=== PATIENT | female | born 1945 | race Caucasian/White ===

== ENCOUNTER 2018-11-23 01:26 | Outpatient (RCR) | payer MEDICARE, OTHER, SELFPAY ==
[2018-11-23] MEDS: Normal Saline Flush 10 ML SYR IVP (12:44)
[2018-11-23] MEDS: Heparin 500 UNITS/5 ML SYRINGE IV (12:45)
[2018-11-23 13:08] LABS: Abs Immature Grans 0.03 k/cumm (0.0-0.09); Absolute Basophil Count 0.08 k/cumm (0.0-0.2); Absolute Eosinophil Count 0.21 k/cumm (0.0-0.7); Absolute Lymphocyte Count 1.11 k/cumm (1.2-3.4); Absolute Monocyte Count 0.77 k/cumm (0.11-0.7); Basophils % 0.7; Eosinophils % 1.9; HCT 38.1 % (36.0-46.0); HGB 12.2 g/dL (12.0-15.5); Immature Grans % 0.3; Lymphocytes % 10.2; Mean Corpuscular Volume 90.7 fL (80-95); Mean Platelet Volume 9.5 fL (8.0-11.0); Monocytes % 7.1; Neutrophils % 79.8; Platelet Count 298 x1000/uL (130-400); RBC Distribution Width 13.7 % (11.7-14.6); White Blood Cell Count 10.85 k/cumm (4.4-10.8)
[2018-11-23 13:12] LABS: Absolute Neutrophil Count 8.66 k/cumm (1.2-6.7)
[2018-11-23 13:20] LABS: ALT 19 U/L (12-78); AST 14 U/L (15-37); Albumin 3.1 g/dL (3.4-5.0); Alkaline Phosphatase 84 U/L (46-116); Anion Gap 10.6 mmol/L (3-11); BUN 14 mg/dL (7-18); Bilirubin, Total 0.3 mg/dL (0.2-1.0); CO2 24.4 mmol/L (21.0-32.0); CREATININE 0.79 mg/dL (0.55-1.02); Calcium 8.5 mg/dL (8.5-10.1); Chloride 102 mmol/L (98-107); Glucose 154 mg/dL (70-100); Potassium 4.3 mmol/L (3.5-5.1); Sodium 137 mmol/L (136-145); Total Protein 7.3 g/dL (6.4-8.2)
== END 2018-11-26 23:59 | disposition home or self-care (01) ==
LOC: INF 01:26
PROVIDERS: PCP Student in an Organized Health Care Education/Training Program; Visit Provider Internal Medicine Hematology & Oncology
DX: C18.1 Malignant neoplasm of appendix (principal); Z45.2 Encounter for adjustment and management of vascular access device
CPT/HCPCS: 36591; 80053; 82378; 85025

== ENCOUNTER 2018-12-24 01:49 | Outpatient (RCR) | payer MEDICARE, OTHER, SELFPAY ==
[2018-12-03 12:45] LABS: Abs Immature Grans 0.03 k/cumm (0.0-0.09); Absolute Eosinophil Count 0.32 k/cumm (0.0-0.7); Absolute Lymphocyte Count 1.56 k/cumm (1.2-3.4); Absolute Monocyte Count 0.86 k/cumm (0.11-0.7); Absolute Neutrophil Count 8.37 k/cumm (1.2-6.7); Basophils % 0.4; Eosinophils % 2.9; HCT 39.4 % (36.0-46.0); HGB 12.5 g/dL (12.0-15.5); Immature Grans % 0.3; Lymphocytes % 13.9; Mean Corp. HGB Concentration 31.7 g/dL (32.0-36.0); Mean Corpuscular Hemoglobin 28.2 pg (27.0-33.0); Mean Corpuscular Volume 88.9 fL (80-95); Mean Platelet Volume 9.8 fL (8.0-11.0); Monocytes % 7.7; Neutrophils % 74.8; Platelet Count 334 x1000/uL (130-400); RBC 4.43 m/cumm (4.00-5.20); RBC Distribution Width 13.5 % (11.7-14.6); White Blood Cell Count 11.19 k/cumm (4.4-10.8)
[2018-12-03 12:49] LABS: Absolute Basophil Count 0.04 k/cumm (0.0-0.2)
[2018-12-03 13:00] LABS: ALT 23 U/L (12-78); AST 17 U/L (15-37); Albumin 3.4 g/dL (3.4-5.0); Alkaline Phosphatase 90 U/L (46-116); Anion Gap 8.7 mmol/L (3-11); BUN 12 mg/dL (7-18); Bilirubin, Total 0.2 mg/dL (0.2-1.0); CO2 25.3 mmol/L (21.0-32.0); CREATININE 0.74 mg/dL (0.55-1.02); Chloride 100 mmol/L (98-107); Glucose 91 mg/dL (70-100); Potassium 4.2 mmol/L (3.5-5.1); Sodium 134 mmol/L (136-145); Total Protein 7.7 g/dL (6.4-8.2)
[2018-12-06 09:51] LABS: CEA 3.5 ng/ml
[2018-12-10] MEDS: Normal Saline Flush 10 ML SYR IVP (09:13)
[2018-12-10 09:21] LABS: Abs Immature Grans 0.04 k/cumm (0.0-0.09); Absolute Basophil Count 0.06 k/cumm (0.0-0.2); Absolute Eosinophil Count 0.41 k/cumm (0.0-0.7); Absolute Lymphocyte Count 1.23 k/cumm (1.2-3.4); Basophils % 0.6; Eosinophils % 3.8; HCT 39.3 % (36.0-46.0); HGB 12.8 g/dL (12.0-15.5); Immature Grans % 0.4; Lymphocytes % 11.4; Mean Corp. HGB Concentration 32.6 g/dL (32.0-36.0); Mean Corpuscular Hemoglobin 28.7 pg (27.0-33.0); Mean Corpuscular Volume 88.1 fL (80-95); Mean Platelet Volume 9.3 fL (8.0-11.0); Monocytes % 6.5; Neutrophils % 77.3; Platelet Count 302 x1000/uL (130-400); RBC 4.46 m/cumm (4.00-5.20); RBC Distribution Width 13.3 % (11.7-14.6); White Blood Cell Count 10.82 k/cumm (4.4-10.8)
[2018-12-10 09:26] LABS: Absolute Neutrophil Count 8.36 k/cumm (1.2-6.7)
[2018-12-10 09:45] LABS: ALT 29 U/L (12-78); AST 19 U/L (15-37); Albumin 3.5 g/dL (3.4-5.0); Alkaline Phosphatase 86 U/L (46-116); Anion Gap 12.3 mmol/L (3-11); BUN 16 mg/dL (7-18); Bilirubin, Total 0.3 mg/dL (0.2-1.0); CO2 20.7 mmol/L (21.0-32.0); Calcium 8.8 mg/dL (8.5-10.1); Chloride 104 mmol/L (98-107); Glucose 103 mg/dL (70-100); Sodium 137 mmol/L (136-145); Total Protein 7.7 g/dL (6.4-8.2)
[2018-12-24] MEDS: Normal Saline Flush 10 ML SYR IVP (14:10)
[2018-12-24] MEDS: Heparin 500 UNITS/5 ML SYRINGE IV (14:10)
[2018-12-24 14:30] LABS: Abs Immature Grans 0.02 k/cumm (0.0-0.09); Absolute Basophil Count 0.05 k/cumm (0.0-0.2); Absolute Eosinophil Count 0.45 k/cumm (0.0-0.7); Absolute Lymphocyte Count 1.14 k/cumm (1.2-3.4); Absolute Neutrophil Count 7.34 k/cumm (1.2-6.7); Basophils % 0.5; Eosinophils % 4.6; HCT 36.1 % (36.0-46.0); HGB 12.2 g/dL (12.0-15.5); Immature Grans % 0.2; Lymphocytes % 11.8; Mean Corp. HGB Concentration 33.8 g/dL (32.0-36.0); Mean Platelet Volume 9.1 fL (8.0-11.0); Monocytes % 7.2; Neutrophils % 75.7; Platelet Count 255 x1000/uL (130-400); RBC Distribution Width 13.4 % (11.7-14.6)
[2018-12-24 14:44] LABS: ALT 23 U/L (12-78); AST 16 U/L (15-37); Albumin 3.2 g/dL (3.4-5.0); Alkaline Phosphatase 81 U/L (46-116); BUN 9 mg/dL (7-18); Bilirubin, Total 0.5 mg/dL (0.2-1.0); CREATININE 0.82 mg/dL (0.55-1.02); Calcium 7.9 mg/dL (8.5-10.1); Chloride 104 mmol/L (98-107); Glucose 104 mg/dL (70-100); Potassium 3.1 mmol/L (3.5-5.1); Sodium 140 mmol/L (136-145); Total Protein 7.1 g/dL (6.4-8.2)
[2018-12-27 09:10] LABS: CEA 12.6 ng/ml
== END 2018-12-26 23:59 | disposition home or self-care (01) ==
LOC: INF 01:49
PROVIDERS: PCP Student in an Organized Health Care Education/Training Program; Visit Provider Internal Medicine Hematology & Oncology
DX: C18.1 Malignant neoplasm of appendix (principal); Z45.2 Encounter for adjustment and management of vascular access device
CPT/HCPCS: 36591; 80053; 96523; 82378; 85025

== ENCOUNTER 2019-01-10 09:12 | Outpatient (REF) | payer MEDICARE, OTHER, SELFPAY ==
[2019-01-10 09:27] LABS: Abs Immature Grans 0.07 k/cumm (0.0-0.09); HCT 37.4 % (36.0-46.0); HGB 12.6 g/dL (12.0-15.5); Mean Corp. HGB Concentration 33.7 g/dL (32.0-36.0); Mean Corpuscular Hemoglobin 28.4 pg (27.0-33.0); Mean Corpuscular Volume 84.2 fL (80-95); Mean Platelet Volume 10.5 fL (8.0-11.0); Platelet Count 129 x1000/uL (130-400); RBC 4.44 m/cumm (4.00-5.20); RBC Distribution Width 15.2 % (11.7-14.6)
[2019-01-10 09:31] LABS: ALT 26 U/L (12-78); AST 20 U/L (15-37); Albumin 3.1 g/dL (3.4-5.0); Alkaline Phosphatase 82 U/L (46-116); Anion Gap 9.7 mmol/L (3-11); BUN 14 mg/dL (7-18); Bilirubin, Total 0.6 mg/dL (0.2-1.0); CO2 21.3 mmol/L (21.0-32.0); CREATININE 0.87 mg/dL (0.55-1.02); Calcium 8.5 mg/dL (8.5-10.1); Chloride 101 mmol/L (98-107); Glucose 153 mg/dL (70-100); Magnesium 1.7 mg/dL (1.8-2.4); Potassium 3.9 mmol/L (3.5-5.1); Sodium 132 mmol/L (136-145); Total Protein 7.3 g/dL (6.4-8.2)
[2019-01-10 09:56] LABS: Absolute Eosinophil Count 0.11 k/cumm (0.0-0.7); Absolute Lymphocyte Count 0.34 k/cumm (1.2-3.4); Absolute Monocyte Count 1.57 k/cumm (0.11-0.7); Absolute Neutrophil Count 9.18 k/cumm (1.2-6.7)
[2019-01-10 09:57] LABS: Diff Comment Manual Differential
[2019-01-10 09:58] LABS: RBC Morphology Normal
== END 2019-01-10 09:32 ==
LOC: LBN 09:12
PROVIDERS: PCP Student in an Organized Health Care Education/Training Program; Visit Provider Nurse Practitioner Adult Health
DX: C18.1 Malignant neoplasm of appendix (principal)
CPT/HCPCS: 80053; 83735; 85025

== ENCOUNTER 2019-01-21 02:24 | Outpatient (RCR) | payer MEDICARE, OTHER, SELFPAY ==
[2019-01-06] MEDS: Normal Saline Flush 10 ML SYR IVP (07:16)
[2019-01-06] MEDS: Heparin 500 UNITS/5 ML SYRINGE IV (07:17)
[2019-01-06 07:27] LABS: Abs Immature Grans 0.06 k/cumm (0.0-0.09); Absolute Basophil Count 0.08 k/cumm (0.0-0.2); Absolute Eosinophil Count 0.28 k/cumm (0.0-0.7); Absolute Lymphocyte Count 0.95 k/cumm (1.2-3.4); Absolute Neutrophil Count 5.53 k/cumm (1.2-6.7); Eosinophils % 3.5; HCT 40.2 % (36.0-46.0); HGB 13.1 g/dL (12.0-15.5); Immature Grans % 0.8; Lymphocytes % 11.9; Mean Corp. HGB Concentration 32.6 g/dL (32.0-36.0); Mean Corpuscular Hemoglobin 28.1 pg (27.0-33.0); Mean Corpuscular Volume 86.3 fL (80-95); Mean Platelet Volume 9.3 fL (8.0-11.0); Monocytes % 13.8; Platelet Count 281 x1000/uL (130-400); RBC 4.66 m/cumm (4.00-5.20); RBC Distribution Width 14.9 % (11.7-14.6)
[2019-01-06 07:57] LABS: ALT 32 U/L (12-78); AST 26 U/L (15-37); Albumin 3.3 g/dL (3.4-5.0); Alkaline Phosphatase 80 U/L (46-116); Anion Gap 12.6 mmol/L (3-11); BUN 15 mg/dL (7-18); Bilirubin, Total 0.5 mg/dL (0.2-1.0); CO2 19.4 mmol/L (21.0-32.0); CREATININE 0.87 mg/dL (0.55-1.02); Calcium 7.9 mg/dL (8.5-10.1); Chloride 104 mmol/L (98-107); Glucose 130 mg/dL (70-100); Potassium 4.1 mmol/L (3.5-5.1); Sodium 136 mmol/L (136-145); Total Protein 7.2 g/dL (6.4-8.2)
[2019-01-07 10:10] LABS: CEA 13.3 ng/ml
[2019-01-21] MEDS: Normal Saline Flush 10 ML SYR IVP (14:37)
[2019-01-21] MEDS: Heparin 500 UNITS/5 ML SYRINGE IV (14:38)
[2019-01-21 14:48] LABS: Abs Immature Grans 0.05 k/cumm (0.0-0.09); Absolute Eosinophil Count 0.23 k/cumm (0.0-0.7); Absolute Lymphocyte Count 2.68 k/cumm (1.2-3.4); Absolute Monocyte Count 1.11 k/cumm (0.11-0.7); Absolute Neutrophil Count 5.47 k/cumm (1.2-6.7); Basophils % 2.1; Eosinophils % 2.4; HGB 12.9 g/dL (12.0-15.5); Immature Grans % 0.5; Lymphocytes % 27.5; Mean Corp. HGB Concentration 33.1 g/dL (32.0-36.0); Mean Corpuscular Hemoglobin 28.1 pg (27.0-33.0); Mean Platelet Volume 9.4 fL (8.0-11.0); Monocytes % 11.4; Neutrophils % 56.1; Platelet Count 243 x1000/uL (130-400); RBC 4.59 m/cumm (4.00-5.20); RBC Distribution Width 14.9 % (11.7-14.6); White Blood Cell Count 9.74 k/cumm (4.4-10.8)
[2019-01-21 15:09] LABS: ALT 30 U/L (12-78); AST 19 U/L (15-37); Albumin 3.3 g/dL (3.4-5.0); Alkaline Phosphatase 82 U/L (46-116); Anion Gap 7.9 mmol/L (3-11); BUN 16 mg/dL (7-18); Bilirubin, Total 0.3 mg/dL (0.2-1.0); CO2 26.1 mmol/L (21.0-32.0); CREATININE 0.84 mg/dL (0.55-1.02); Calcium 8.4 mg/dL (8.5-10.1); Chloride 102 mmol/L (98-107); Glucose 105 mg/dL (70-100); Potassium 3.9 mmol/L (3.5-5.1); Sodium 136 mmol/L (136-145); Total Protein 7.4 g/dL (6.4-8.2)
[2019-01-24 11:22] LABS: CEA 5.3 ng/ml
== END 2019-01-26 23:59 | disposition home or self-care (01) ==
LOC: INF 02:24
PROVIDERS: PCP Student in an Organized Health Care Education/Training Program; Visit Provider Internal Medicine Hematology & Oncology
DX: C18.1 Malignant neoplasm of appendix (principal); Z45.2 Encounter for adjustment and management of vascular access device
CPT/HCPCS: 36591; 80053; 82378; 85025

== ENCOUNTER 2019-01-27 00:39 | Outpatient (CLI) | payer MEDICARE, OTHER, SELFPAY ==
[2019-01-27] MEDS: Breeza Beverage 473 ML BTL PO ×2 (08:59→09:00)
[2019-01-27] MEDS: Omnipaque 350 MG/ML 50 ML BTL PO (09:00)
--- NOTE | 2019-01-27 10:05 | DI.CT_ITS ---
SYMPTOMS/DIAGNOSIS: ADENOCARCINOMA APPENDIX, C18.1, ELEVATED TUMOR MARKERS CT OF THE CHEST, ABDOMEN AND PELVIS: The study was carried out according to the usual protocol with an intravenous administration of 100 cc's of Omnipaque 350. CHEST CT: There is evidence of COPD. When compared with a previous examination from 09/08/18 again noted is a 5 mm nodule in the superior segment of the left lower lobe. Again identified are opacities in the right lower lobe posteriorly. Also a pleural based focal area of nodularity in the superior segment of the right lower lobe has a maximal diameter of approximately 6 mm and is unchanged. Note is again made of very small pleural based opacities in both lungs. There is no evidence of a mass. There is no evidence of a pleural effusion. There is no evidence of hilar or mediastinal adenopathy. The heart is not enlarged. There is no pericardial effusion. There is no evidence of pulmonary embolic disease. There are mild atherosclerotic changes involving the aorta without evidence of an aneurysm. A Port-a-Cath is demonstrated with its tip ending in the distal portion of the superior vena cava at its junction with the right atrium. SUMMARY: No significant interval change when compared with the prior examination of 09/08/18. Note is again made of COPD and multiple bilateral areas of nodularity which are unchanged. There is no evidence of adenopathy. ABDOMEN AND PELVIC CT: The liver appears intact. The gallbladder is intact. There is no evidence of cholelithiasis or biliary dilatation. The pancreas is atrophic. The spleen and adrenals are unremarkable. The kidneys are intact. There is no evidence of hydronephrosis. No adrenal abnormality is seen. There is no evidence of lymphadenopathy. There is no evidence of bowel obstruction. The patient is status post right lower quadrant ileocolic anastomosis. There is nothing to suggest free air or fluid in the intraperitoneal space. The bladder appears intact. The reproductive organs as visualized are unremarkable. There is no evidence of an aortic aneurysm. The patient is apparently status post bilateral inguinal hernia repair. There are diffuse atherosclerotic changes involving the aorta without evidence of an aneurysm. Evaluation of the bony structures again reveals superior endplate compression fractures of T 12 and T 11 with no interval change. No localized areas of bony sclerosis, osteolysis or expansion are seen. Left to right common femoral bypass graft which appears patent. SUMMARY: No evidence of metastatic disease in the abdomen or pelvis.
[2019-01-27] MEDS: Omnipaque 350 MG/ML 100 ML BTL IJ (10:24)
== END 2019-01-27 00:59 ==
PROVIDERS: PCP Student in an Organized Health Care Education/Training Program; Visit Provider Internal Medicine Hematology & Oncology
DX: C18.1 Malignant neoplasm of appendix (principal); R97.8 Other abnormal tumor markers; J44.9 Chronic obstructive pulmonary disease, unspecified; R91.8 Other nonspecific abnormal finding of lung field; Z90.49 Acquired absence of other specified parts of digestive tract; Z95.828 Presence of other vascular implants and grafts
CPT/HCPCS: 74177; 96523; 71260; J3490; Q9967

== ENCOUNTER 2019-02-25 01:10 | Outpatient (RCR) | payer MEDICARE, OTHER, SELFPAY ==
[2019-01-27] MEDS: Heparin 500 UNITS/5 ML SYRINGE (10:15)
[2019-02-04] MEDS: Normal Saline Flush 10 ML SYR IVP (13:15)
[2019-02-04] MEDS: Heparin 500 UNITS/5 ML SYRINGE IV (13:15)
[2019-02-04 13:37] LABS: Abs Immature Grans 0.04 k/cumm (0.0-0.09); Absolute Basophil Count 0.05 k/cumm (0.0-0.2); Absolute Eosinophil Count 0.35 k/cumm (0.0-0.7); Absolute Lymphocyte Count 1.29 k/cumm (1.2-3.4); Absolute Monocyte Count 1.29 k/cumm (0.11-0.7); Basophils % 0.4; Eosinophils % 2.9; HCT 40.2 % (36.0-46.0); HGB 13.1 g/dL (12.0-15.5); Immature Grans % 0.3; Lymphocytes % 10.8; Mean Corp. HGB Concentration 32.6 g/dL (32.0-36.0); Mean Corpuscular Hemoglobin 27.3 pg (27.0-33.0); Mean Corpuscular Volume 83.8 fL (80-95); Mean Platelet Volume 10.2 fL (8.0-11.0); Monocytes % 10.8; Neutrophils % 74.8; Platelet Count 189 x1000/uL (130-400)
[2019-02-04 13:53] LABS: ALT 26 U/L (12-78); AST 18 U/L (15-37); Albumin 3.2 g/dL (3.4-5.0); Alkaline Phosphatase 84 U/L (46-116); Anion Gap 13.7 mmol/L (3-11); BUN 9 mg/dL (7-18); Bilirubin, Total 0.3 mg/dL (0.2-1.0); CO2 23.3 mmol/L (21.0-32.0); CREATININE 0.81 mg/dL (0.55-1.02); Chloride 98 mmol/L (98-107); Glucose 118 mg/dL (70-100); Potassium 4.1 mmol/L (3.5-5.1); Sodium 135 mmol/L (136-145); Total Protein 7.4 g/dL (6.4-8.2)
[2019-02-07 10:08] LABS: CEA 7.2 ng/ml
[2019-02-18] MEDS: Normal Saline Flush 10 ML SYR IVP (09:52)
[2019-02-18] MEDS: Heparin 500 UNITS/5 ML SYRINGE IV (09:53)
[2019-02-18 10:13] LABS: Abs Immature Grans 0.03 k/cumm (0.0-0.09); Absolute Basophil Count 0.05 k/cumm (0.0-0.2); Absolute Lymphocyte Count 1.14 k/cumm (1.2-3.4); Absolute Monocyte Count 1.34 k/cumm (0.11-0.7); Absolute Neutrophil Count 8.96 k/cumm (1.2-6.7); Basophils % 0.4; Eosinophils % 0.9; HCT 38.8 % (36.0-46.0); HGB 12.5 g/dL (12.0-15.5); Immature Grans % 0.3; Lymphocytes % 9.8; Mean Corp. HGB Concentration 32.2 g/dL (32.0-36.0); Mean Corpuscular Hemoglobin 26.7 pg (27.0-33.0); Mean Corpuscular Volume 82.9 fL (80-95); Mean Platelet Volume 9.8 fL (8.0-11.0); Monocytes % 11.5; Neutrophils % 77.1; Platelet Count 218 x1000/uL (130-400); RBC 4.68 m/cumm (4.00-5.20); RBC Distribution Width 15.6 % (11.7-14.6); White Blood Cell Count 11.62 k/cumm (4.4-10.8)
[2019-02-18 11:26] LABS: ALT 27 U/L (14-59); AST 23 U/L (15-37); Albumin 2.9 g/dL (3.4-5.0); Alkaline Phosphatase 91 U/L (46-116); BUN 10 mg/dL (7-18); Bilirubin, Total 0.4 mg/dL (0.2-1.0); CREATININE 0.91 mg/dL (0.55-1.02); Calcium 8.2 mg/dL (8.5-10.1); Chloride 100 mmol/L (98-107); Glucose 178 mg/dL (70-100); Potassium 3.7 mmol/L (3.5-5.1); Sodium 135 mmol/L (136-145); Total Protein 7.5 g/dL (6.4-8.2)
[2019-02-25] MEDS: Heparin 500 UNITS/5 ML SYRINGE IV (12:55)
[2019-02-25] MEDS: Normal Saline Flush 10 ML SYR IVP (12:55)
[2019-02-25 13:21] LABS: Abs Immature Grans 0.04 k/cumm (0.0-0.09); Absolute Basophil Count 0.05 k/cumm (0.0-0.2); Absolute Eosinophil Count 0.25 k/cumm (0.0-0.7); Absolute Lymphocyte Count 1.04 k/cumm (1.2-3.4); Absolute Monocyte Count 0.96 k/cumm (0.11-0.7); Absolute Neutrophil Count 5.44 k/cumm (1.2-6.7); Basophils % 0.6; Eosinophils % 3.2; HCT 39.1 % (36.0-46.0); HGB 12.5 g/dL (12.0-15.5); Immature Grans % 0.5; Lymphocytes % 13.4; Mean Corpuscular Hemoglobin 26.5 pg (27.0-33.0); Mean Corpuscular Volume 82.8 fL (80-95); Mean Platelet Volume 9.3 fL (8.0-11.0); Monocytes % 12.3; Platelet Count 327 x1000/uL (130-400); RBC 4.72 m/cumm (4.00-5.20); RBC Distribution Width 15.7 % (11.7-14.6); White Blood Cell Count 7.78 k/cumm (4.4-10.8)
[2019-02-25 13:38] LABS: ALT 33 U/L (14-59); AST 26 U/L (15-37); Albumin 2.9 g/dL (3.4-5.0); Alkaline Phosphatase 87 U/L (46-116); Anion Gap 10.4 mmol/L (3-11); BUN 10 mg/dL (7-18); Bilirubin, Total 0.2 mg/dL (0.2-1.0); CO2 24.6 mmol/L (21.0-32.0); CREATININE 0.85 mg/dL (0.55-1.02); Calcium 8.2 mg/dL (8.5-10.1); Chloride 104 mmol/L (98-107); Glucose 145 mg/dL (70-100); Sodium 139 mmol/L (136-145); Total Protein 7.6 g/dL (6.4-8.2)
== END 2019-02-26 23:59 | disposition home or self-care (01) ==
LOC: INF 01:10
PROVIDERS: PCP Student in an Organized Health Care Education/Training Program; Visit Provider Internal Medicine Hematology & Oncology
DX: C18.1 Malignant neoplasm of appendix (principal); Z45.2 Encounter for adjustment and management of vascular access device
CPT/HCPCS: 36591; 80053; 96523; 82378; 85025

== ENCOUNTER 2019-03-22 08:00 | Outpatient (RCR) | payer MEDICARE, OTHER, SELFPAY ==
[2019-03-11] MEDS: Heparin 500 UNITS/5 ML SYRINGE IV (08:15)
[2019-03-11] MEDS: Normal Saline Flush 10 ML SYR IVP (08:15)
[2019-03-11 08:46] LABS: Abs Immature Grans 0.03 k/cumm (0.0-0.09); Absolute Basophil Count 0.05 k/cumm (0.0-0.2); Absolute Eosinophil Count 0.21 k/cumm (0.0-0.7); Absolute Lymphocyte Count 1.33 k/cumm (1.2-3.4); Absolute Monocyte Count 1.09 k/cumm (0.11-0.7); Absolute Neutrophil Count 7.52 k/cumm (1.2-6.7); Basophils % 0.5; Eosinophils % 2.1; HCT 41.8 % (36.0-46.0); HGB 13.2 g/dL (12.0-15.5); Immature Grans % 0.3; Mean Corp. HGB Concentration 31.6 g/dL (32.0-36.0); Mean Corpuscular Hemoglobin 26.3 pg (27.0-33.0); Mean Corpuscular Volume 83.3 fL (80-95); Mean Platelet Volume 10.4 fL (8.0-11.0); Monocytes % 10.7; Neutrophils % 73.4; Platelet Count 206 x1000/uL (130-400); RBC 5.02 m/cumm (4.00-5.20); RBC Distribution Width 17.1 % (11.7-14.6); White Blood Cell Count 10.23 k/cumm (4.4-10.8)
[2019-03-11 09:04] LABS: Hemoglobin A1C 7.2 % (4.5-6.2)
[2019-03-11 09:21] LABS: ALT 28 U/L (14-59); AST 31 U/L (15-37); Albumin 3.3 g/dL (3.4-5.0); Alkaline Phosphatase 90 U/L (46-116); Anion Gap 11.4 mmol/L (3-11); BUN 5 mg/dL (7-18); Bilirubin, Total 0.4 mg/dL (0.2-1.0); CO2 22.6 mmol/L (21.0-32.0); CREATININE 0.82 mg/dL (0.55-1.02); Calcium 8.4 mg/dL (8.5-10.1); Chloride 107 mmol/L (98-107); Glucose 121 mg/dL (70-100); Potassium 4.3 mmol/L (3.5-5.1); Sodium 141 mmol/L (136-145); Total Protein 7.5 g/dL (6.4-8.2)
[2019-03-22 08:35] LABS: Absolute Basophil Count 0.09 k/cumm (0.0-0.2); Absolute Eosinophil Count 0.25 k/cumm (0.0-0.7); Absolute Lymphocyte Count 1.22 k/cumm (1.2-3.4); Absolute Monocyte Count 0.73 k/cumm (0.11-0.7); Absolute Neutrophil Count 5.34 k/cumm (1.2-6.7); Basophils % 1.2; Eosinophils % 3.2; HCT 38.6 % (36.0-46.0); HGB 12.1 g/dL (12.0-15.5); Immature Grans % 1.3; Lymphocytes % 15.8; Mean Corp. HGB Concentration 31.3 g/dL (32.0-36.0); Mean Corpuscular Hemoglobin 26.3 pg (27.0-33.0); Mean Corpuscular Volume 83.9 fL (80-95); Mean Platelet Volume 9.6 fL (8.0-11.0); Monocytes % 9.4; Neutrophils % 69.1; Platelet Count 307 x1000/uL (130-400); RBC Distribution Width 16.9 % (11.7-14.6); White Blood Cell Count 7.73 k/cumm (4.4-10.8)
[2019-03-22] MEDS: Normal Saline Flush 10 ML SYR IVP (08:38)
[2019-03-22 08:47] LABS: ALT 18 U/L (14-59); AST 21 U/L (15-37); Albumin 2.1 g/dL (3.4-5.0); Alkaline Phosphatase 84 U/L (46-116); Anion Gap 9.9 mmol/L (3-11); BUN 6 mg/dL (7-18); Bilirubin, Total 0.2 mg/dL (0.2-1.0); CO2 23.1 mmol/L (21.0-32.0); CREATININE 0.91 mg/dL (0.55-1.02); Chloride 102 mmol/L (98-107); Glucose 197 mg/dL (70-100); Potassium 4.3 mmol/L (3.5-5.1); Sodium 135 mmol/L (136-145); Total Protein 7.4 g/dL (6.4-8.2)
[2019-03-23 11:16] LABS: CEA 5.1 ng/ml
== END 2019-03-28 23:59 | disposition home or self-care (01) ==
LOC: INF 08:00
PROVIDERS: PCP Student in an Organized Health Care Education/Training Program; Visit Provider Internal Medicine Hematology & Oncology
DX: C18.1 Malignant neoplasm of appendix (principal); Z45.2 Encounter for adjustment and management of vascular access device
CPT/HCPCS: 36591; 80053; 82378; 83036; 85025

== ENCOUNTER 2019-04-15 02:34 | Outpatient (RCR) | payer MEDICARE, OTHER, SELFPAY ==
[2019-04-01] MEDS: Normal Saline Flush 10 ML SYR IVP (08:00)
[2019-04-01] MEDS: Heparin 500 UNITS/5 ML SYRINGE IV (08:00)
[2019-04-01 08:14] LABS: Abs Immature Grans 0.06 k/cumm (0.0-0.09); Absolute Basophil Count 0.05 k/cumm (0.0-0.2); Absolute Eosinophil Count 0.18 k/cumm (0.0-0.7); Absolute Lymphocyte Count 1.18 k/cumm (1.2-3.4); Absolute Monocyte Count 1.34 k/cumm (0.11-0.7); Basophils % 0.5; Eosinophils % 1.7; HCT 38.9 % (36.0-46.0); HGB 12.2 g/dL (12.0-15.5); Immature Grans % 0.6; Lymphocytes % 11.1; Mean Corp. HGB Concentration 31.4 g/dL (32.0-36.0); Mean Corpuscular Hemoglobin 26.3 pg (27.0-33.0); Mean Corpuscular Volume 83.8 fL (80-95); Mean Platelet Volume 9.6 fL (8.0-11.0); Monocytes % 12.6; Neutrophils % 73.5; Platelet Count 296 x1000/uL (130-400); RBC 4.64 m/cumm (4.00-5.20); RBC Distribution Width 17.7 % (11.7-14.6); White Blood Cell Count 10.61 k/cumm (4.4-10.8)
[2019-04-01 08:35] LABS: ALT 22 U/L (14-59); AST 28 U/L (15-37); Albumin 3.1 g/dL (3.4-5.0); Alkaline Phosphatase 93 U/L (46-116); Anion Gap 13.4 mmol/L (3-11); BUN 11 mg/dL (7-18); Bilirubin, Total 0.4 mg/dL (0.2-1.0); CO2 21.6 mmol/L (21.0-32.0); CREATININE 0.88 mg/dL (0.55-1.02); Calcium 8.6 mg/dL (8.5-10.1); Chloride 100 mmol/L (98-107); Glucose 147 mg/dL (70-100); Potassium 4.3 mmol/L (3.5-5.1); Sodium 135 mmol/L (136-145); Total Protein 7.8 g/dL (6.4-8.2)
[2019-04-04 08:41] LABS: CEA 10.3 ng/ml
[2019-04-15] MEDS: Normal Saline Flush 10 ML SYR IVP (10:22)
[2019-04-15] MEDS: Heparin 500 UNITS/5 ML SYRINGE IV (10:22)
[2019-04-15 10:33] LABS: Abs Immature Grans 0.04 k/cumm (0.0-0.09); Absolute Basophil Count 0.07 k/cumm (0.0-0.2); Absolute Eosinophil Count 0.11 k/cumm (0.0-0.7); Absolute Lymphocyte Count 1.23 k/cumm (1.2-3.4); Absolute Monocyte Count 0.91 k/cumm (0.11-0.7); Absolute Neutrophil Count 6.52 k/cumm (1.2-6.7); Basophils % 0.8; Eosinophils % 1.2; HCT 39.9 % (36.0-46.0); HGB 12.7 g/dL (12.0-15.5); Immature Grans % 0.5; Lymphocytes % 13.9; Mean Corp. HGB Concentration 31.8 g/dL (32.0-36.0); Mean Corpuscular Hemoglobin 26.7 pg (27.0-33.0); Mean Platelet Volume 9.8 fL (8.0-11.0); Monocytes % 10.2; Neutrophils % 73.4; Platelet Count 178 x1000/uL (130-400); RBC 4.75 m/cumm (4.00-5.20); RBC Distribution Width 18.6 % (11.7-14.6); White Blood Cell Count 8.88 k/cumm (4.4-10.8)
[2019-04-15 10:39] LABS: ALT 27 U/L (14-59); AST 31 U/L (15-37); Albumin 3.1 g/dL (3.4-5.0); Alkaline Phosphatase 94 U/L (46-116); Anion Gap 12.5 mmol/L (3-11); BUN 14 mg/dL (7-18); Bilirubin, Total 0.3 mg/dL (0.2-1.0); CO2 22.5 mmol/L (21.0-32.0); Calcium 8.2 mg/dL (8.5-10.1); Chloride 102 mmol/L (98-107); Glucose 249 mg/dL (70-100); Potassium 3.9 mmol/L (3.5-5.1); Sodium 137 mmol/L (136-145); Total Protein 7.5 g/dL (6.4-8.2)
[2019-04-18 10:53] LABS: CEA 12.6 ng/ml
== END 2019-04-28 23:59 | disposition home or self-care (01) ==
LOC: INF 02:34
PROVIDERS: PCP Student in an Organized Health Care Education/Training Program; Visit Provider Internal Medicine Hematology & Oncology
DX: C18.1 Malignant neoplasm of appendix (principal); Z45.2 Encounter for adjustment and management of vascular access device
CPT/HCPCS: 36591; 80053; 82378; 85025

== ENCOUNTER 2020-05-21 18:28 | Outpatient (REF) | payer MEDICARE, OTHER, SELFPAY | END 2020-05-21 18:48 | LOC: LBN 18:28 | PROVIDERS: PCP Student in an Organized Health Care Education/Training Program; Visit Provider Family Medicine | DX: N39.0 Urinary tract infection, site not specified (principal) | CPT/HCPCS: 87086 ==

== ENCOUNTER 2021-03-22 19:51 | Outpatient (REF) | payer MEDICARE, OTHER, SELFPAY ==
[2021-03-22 17:34] LABS: ALT 37 U/L (14-59); AST 22 U/L (15-37); Albumin 3.5 g/dL (3.4-5.0); Alkaline Phosphatase 72 U/L (46-116); Bilirubin, Direct 0.1 mg/dL (0.0-0.2); Bilirubin, Total 0.4 mg/dL (0.2-1.0); Total Protein 6.7 g/dL (6.4-8.2)
== END 2021-03-22 19:52 | disposition home or self-care (01) ==
LOC: LBN 19:51
PROVIDERS: PCP Student in an Organized Health Care Education/Training Program; Visit Provider Student in an Organized Health Care Education/Training Program
DX: J44.9 Chronic obstructive pulmonary disease, unspecified (principal)
CPT/HCPCS: 80076

== ENCOUNTER 2021-04-25 13:25 | Outpatient (REF) | payer MEDICARE, OTHER, SELFPAY | END 2021-04-25 13:26 | disposition home or self-care (01) | LOC: LBN 13:25 | PROVIDERS: PCP Student in an Organized Health Care Education/Training Program; Visit Provider Student in an Organized Health Care Education/Training Program | DX: R31.9 Hematuria, unspecified (principal); R41.0 Disorientation, unspecified | CPT/HCPCS: 87086 ==

== ENCOUNTER 2021-05-02 01:58 | Outpatient (CLI) | payer MEDICARE, OTHER, SELFPAY ==
--- NOTE | 2021-05-02 06:45 | DI.RAD_ITS ---
Exam(s) XR CHEST 2V PA LATERAL EXAM: XR CHEST 2V PA LATERAL CLINICAL HISTORY: evaluate for pneumonia,H/O PNEUMONIA,H/O FLUID OVERLOAD,COPD,J44.9,Z86.39. TECHNIQUE: 2D digital imaging was performed. COMPARISON: CT CT ANGIO CHEST from 08/18/[address] ANGIO CHEST from 08/18/2020 FINDINGS: Distal tip of the right sided Port-A-Cath is at the SVC RA junction Heart size is normal. The mediastinum is not widened. Lung aguilar reveal COPD findings and some interstitial disease. No pleural effusions. However, ther e appears to be a 1.2 x 1.2 cm nodule in the mid lateral left lung field, possibly in the superior se gment of the left lower lobe or in the left upper lobe.. IMPRESSION: COPD. No confluent infiltrates but there is a nodular infiltrate in the lateral left lung measuring 12 x 12 millimeters. DATA REPOSITORY: RADIATION DOSE DELIVERED:
== END 2021-05-02 02:18 ==
PROVIDERS: PCP Student in an Organized Health Care Education/Training Program; Visit Provider Student in an Organized Health Care Education/Training Program
DX: R53.83 Other fatigue (principal); J44.9 Chronic obstructive pulmonary disease, unspecified; J96.11 Chronic respiratory failure with hypoxia; Z86.39 Personal history of other endocrine, nutritional and metabolic disease; R91.8 Other nonspecific abnormal finding of lung field
CPT/HCPCS: 71046

== ENCOUNTER 2021-05-03 03:19 | Outpatient (CLI) | payer MEDICARE, OTHER, SELFPAY ==
[2021-05-03 10:55] LABS: Source Nasal/Nares
[2021-05-03 17:09] LABS: COVID-19 PCR Negative (Negative)
== END 2021-05-03 03:20 | disposition home or self-care (01) ==
LOC: LBO 03:19
PROVIDERS: PCP Student in an Organized Health Care Education/Training Program; Visit Provider Internal Medicine
DX: Z20.822 Contact with and (suspected) exposure to COVID-19 (principal); Z01.818 Encounter for other preprocedural examination
CPT/HCPCS: 87635

== ENCOUNTER 2021-05-31 00:35 | Outpatient (CLI) | payer MEDICARE, OTHER, SELFPAY ==
--- NOTE | 2021-05-31 07:45 | DI.CT_ITS ---
Exam(s) CT CHEST WO EXAM: CT CHEST WO CLINICAL HISTORY: left nodule seen on previous CXR, R91.1. TECHNIQUE: Imaging protocol: Axial computed tomography images were obtained and coronal and sagittal reformatted images were created and reviewed. COMPARISON: CT CT CHEST W CONTRAST from 09/08/[address] CHEST ABDOMEN PELVIS W CONTRAST (GENERIC) from 10/12/[address] ANGIO CHEST from 08/18/2020 CR XR CHEST 2V PA LATERAL from 05/02/2021 FINDINGS: Tracheobronchial tree: Patent where visualized. Pulmonary parenchyma: There has been continued improvement in the infiltrate in the posterior aspect of the right lower lobe compared to the prior examination. There is a stable pleural based nodule in the lateral aspect of the right lower lobe. (Series 4, image 431). There is now a 2nd pleural based n odule posteriorly in the right lower lobe measuring 7 mm. (Series 4, image 432). There is a stable pl eural based nodule in the left lower lobe. (Series 4, image 274). There has been marked improvement i n the infiltrates seen in the lower lobes compared to 08/18/2020. Minimal persistent interstitial dise ase is seen in the lower lobes. No new focal consolidating infiltrates are seen. Marked centrilobular emphysematous changes are present. Mediastinum and Radha: Stable mildly enlarged lymph nodes are seen in the mediastinum. There is a smal l hiatal hernia. The esophagus is otherwise unremarkable. Thyroid gland: Unremarkable. Pleura: No effusion or pneumothorax. Heart: Mildly enlarged heart. Coronary artery calcifications are present. Calcification of the mitral valve is noted. No pericardial effusion. Aorta: Thoracic aorta non-dilated. Atherosclerosis. Upper abdomen: Unremarkable. Lymph nodes: Please see above. Tubes, Catheters, and Lines: There is a central venous catheter in place. The tip is in good position at the cavoatrial junction. Soft tissues: Unremarkable. Bones:There has been progression of the compression of the inferior endplate of T10. The compression fracture deformities of T12, L1 and L2 are unchanged. IMPRESSION: 1. Improved infiltrates in the lower lobes since 08/18/2020. 2. New pleural based 7 mm nodule in the right lower lobe. Otherwise stable pulmonary nodules. 3. Centrilobular pulmonary emphysema. 4. Stable mediastinal lymph nodes. 5. Slight progression in the compression of the inferior endplate of T10. RADIATION DOSE DELIVERED: 349.13mGy.cm Total DLP 349.13mGy.cm Total DLP DATA REPOSITORY: All CT scans at this facility are submitted to the National Radiology Data Registry (NRDR) Dose Index Registry (DIR) with the [employer] ([employer]). RADIATION OPTIMIZATION: All CT scans at this facility use at least one of these dose optimization te chniques: automated exposure control; mA and/or kV adjustment per patient size (includes targeted exa ms where dose is matched to clinical indication); or iterative reconstruction.
== END 2021-05-31 00:55 ==
PROVIDERS: PCP Student in an Organized Health Care Education/Training Program; Visit Provider Student in an Organized Health Care Education/Training Program
DX: R91.1 Solitary pulmonary nodule (principal)
CPT/HCPCS: 71250

== ENCOUNTER → 2021-07-10 08:44 | Outpatient (BNVA) | payer MEDICARE, OTHER, SELFPAY | PROVIDERS: PCP Student in an Organized Health Care Education/Training Program; Referring Provider Student in an Organized Health Care Education/Training Program; Visit Provider Nurse Practitioner Adult Health | DX: R41.3 Other amnesia (principal); J44.9 Chronic obstructive pulmonary disease, unspecified; E11.9 Type 2 diabetes mellitus without complications; Z99.81 Dependence on supplemental oxygen | CPT/HCPCS: 99204 ==

== ENCOUNTER 2021-07-17 01:48 | Outpatient (RCR) | payer MEDICARE, OTHER, SELFPAY ==
[2021-07-17] MEDS: Normal Saline Flush 10 ML SYR IVP (10:01)
[2021-07-17] MEDS: Heparin 500 UNITS/5 ML SYRINGE IV (10:01)
[2021-07-17 10:13] LABS: CREATININE 1.2 mg/dL (0.55-1.02); Estimated GFR 43.68 (mL/min/1.73m2); Vitamin B12 468 pg/mL (193-986)
== END 2021-07-29 23:59 | disposition home or self-care (01) ==
LOC: INF 01:48
PROVIDERS: PCP Student in an Organized Health Care Education/Training Program; Visit Provider Nurse Practitioner Adult Health
DX: R41.3 Other amnesia (principal); N14.1 Nephropathy induced by other drugs, medicaments and biological substances; T50.8X5A Adverse effect of diagnostic agents, initial encounter; Z45.2 Encounter for adjustment and management of vascular access device
CPT/HCPCS: 36591; 82565; 82607

== ENCOUNTER → 2021-07-24 07:18 | Outpatient (BNVA) | payer MEDICARE, OTHER, SELFPAY | PROVIDERS: PCP Student in an Organized Health Care Education/Training Program; Referring Provider Student in an Organized Health Care Education/Training Program; Visit Provider Nurse Practitioner Adult Health | DX: G31.84 Mild cognitive impairment of uncertain or unknown etiology (principal); J44.9 Chronic obstructive pulmonary disease, unspecified | CPT/HCPCS: 99213; 99443 ==

== ENCOUNTER 2021-08-15 15:23 | Inpatient (IN) | payer MEDICARE, OTHER, SELFPAY ==
[2021-08-15] VITALS (88 sets, daily range): BP systolic 75–134; BP diastolic 41–86; PULSE 81–211; RESP 13–36; TEMP 36.3–36.5; O2SAT 79–99
--- NOTE | 2021-08-15 15:15 | RT.EKG_ITS ---
APPROVED REPORT Exam: Resting ECG Reason for Exam: sob Patient Location: E HR:132 bpm ECG Measurements Heart Rate 132 AXIS NE 135 P 93 QRSd 95 QRS 137 QT 316 T -20 QTc 468 Conclusion Sinus tachycardia. Left atrial enlargement. Low voltage, precordial leads. Right ventricular hypertrophy. Abnormal T, anterior leads.
--- NOTE | 2021-08-15 15:56 | ED.GENADUL_ITS ---
Discharge Plan Disposition Patient Disposition: [facility] INPATIENT Condition: Serious Discharge Details Clinical Impression: Acute respiratory distress, DKA (diabetic ketoacidosis), Elevated troponin Primary Care Provider: Trang Blanton ED Provider: Carter Lee Home Meds and New Rx's Prescriptions: No Action acetaminophen 325 mg tablet 650 mg PO BID PRN0RF melatonin 5 mg tablet 10 mg PO HS 0RF levalbuterol tartrate [Xopenex HFA] 45 mcg/actuation HFA aerosol inhaler 2 inh inhalation Q6H Qty: 15 8RF (DME) Wheelchair light-weight, if possible See Rx Instructions .Route .MEDSUPPLY Qty: 1 0RF Rx Instructions: As directed lorazepam 0.5 mg tablet 0.5 mg PO ONCE PRN (Reason: anxiety) Qty: 2 0RF Rx Instructions: Take [address] scan. May repeat right before scan if needed. (DME) Oxygen Tank See Rx Instructions .ROUTE .MEDSUPPLY Qty: 1 0RF Rx Instructions: Portable oxygen concentrator to administer 2ML flow (Dx J44.1, R09.02, Z99.81) cholecalciferol (vitamin D3) 125 mcg (5,000 unit) tablet 125 mcg PO DAILY 0RF metformin 500 mg tablet 500 mg PO BID Qty: 180 3RF levothyroxine 100 mcg tablet 100 mcg PO DAILY Qty: 90 3RF potassium chloride 20 mEq tablet extended release 20 meq PO DAILY Qty: 90 3RF furosemide 20 mg tablet 20 mg PO DAILY Qty: 30 0RF Rx Instructions: Trial for fluid overload, re-check BMP ~ Apr 2021 (DME) pen needle, diabetic [BD Ultra-Fine Mini Pen Needle] 31 gauge x 3/16 needle See Rx Instructions .ROUTE .MEDSUPPLY Qty: 100 3RF Rx Instructions: for Qam Lantus injection morphine 10 mg/5 mL solution 2 mg PO Q4H MDD 10mg PRN (Reason: dyspnea) Qty: 100 0RF Rx Instructions: Trial for air hunger .. slow titration prn. prednisone 20 mg tablet 20 mg PO DAILY Qty: 30 1RF Rx Instructions: for taper after [facility] ED 40mg Rx prednisone 10 mg tablet 10 mg PO DAILY Qty: 30 1RF Rx Instructions: For continued taper Basaglar KwikPen U-100 Insulin 100 unit/mL (3 mL) insulin pen 24 unit subcut DAILY 0RF Rx Instructions: INCREASE daily insulin by 1unit each morning until fasting blood sugar consistently 100 to 150mg/dl, or you reach a maximum dose of 25units. If fasting blood sugar consistently LESS THAN 100mg/dl DECREASE dose by 1 unit each day until back in target. loperamide-simethicone 2-125 mg tablet 1 tab PO Q3H PRN0RF (DME) Oxygen Titration Qty: 1 0RF Rx Instructions: Titrate to maintain oxygen > 88% metoprolol succinate 25 mg tablet extended release 24 hr 25 mg PO DAILY 0RF nitroglycerin [Nitrostat] 0.4 mg tablet, sublingual 0.4 mg sublingual Q5M PRN0RF Rx Instructions: do not exceed 3 doses per episode Eliquis 2.5 mg tablet 2.5 mg PO BID Qty: 180 3RF Rx Instructions: [place] [facility] [place] [place] lancets [Accu-Chek Softclix Lancets] [facility] See Rx Instructions .ROUTE .MEDSUPPLY Qty: 100 3RF Rx Instructions: As directed, for QD blood sugar monitoring to achieve A1C under 8% (DME) lancing device with lancets [Accu-Chek Soft Dev Lancets] Kit See Rx Instructions .ROUTE .MEDSUPPLY Qty: 1 0RF Rx Instructions: As directed, for QD BS monitoring to achieve A1C under 8% (DME) blood-glucose meter Kit See Rx Instructions .ROUTE .MEDSUPPLY Qty: 1 0RF Rx Instructions: Dispense One Touch Ultra to check BS daily for DM11 E11.9 to keep A1c at or below 8 Pt not insulin dependent (DME) blood sugar diagnostic Strip See Rx Instructions .ROUTE .MEDSUPPLY Qty: 100 3RF Rx Instructions: Dispense one touch strips to check BS daily; DM 11, E11.9 to keep a1c at or under 8. Not insulin dependent Stiolto Respimat 2.5-2.5 mcg/actuation mist 2 puff inhalation DAILY Qty: 4 8RF ipratropium-albuterol 0.5 mg-3 mg(2.5 mg base)/3 mL solution for nebulization 3 ml inhalation .COMPLEX Qty: 540 12RF Hold Instructions: Patient Refused Rx Instructions: 3 mL inhalation-TAKE TWICE DAILY AND Q 4H PRN Dx J44.9 amlodipine 2.5 mg tablet See Rx Instructions .ROUTE .COMPLEX Qty: 90 3RF Dose Instruction: TAKE ONE TABLET BY MOUTH ONCE DAILY Rx Instructions: TAKE ONE TABLET BY MOUTH ONCE DAILY Jardiance 10 mg tablet See Rx Instructions .ROUTE .COMPLEX Qty: 90 1RF Dose Instruction: TAKE ONE TABLET BY MOUTH ONCE DAILY Rx Instructions: TAKE ONE TABLET BY MOUTH ONCE DAILY Medical Decision Making <SANA Sherwood - Last Filed: 08/15/21 19:46> 76-year-old female with a complicated past medical history presents to the ER in respiratory distress. I evaluated her immediately in room 2, respiratory was called to initiate BiPAP. Patient presented with tachycardia, hypotension, tachypnea, O2 sat of 83 on 3 L nasal cannula. Will immediately obtain cardiac work-up and if laboratory values allow obtain CTA of the chest for further evaluation. Given the history of CHF and fluid overload, I am hesitant to aggressively treat with fluid as I do not know if she has an acute CHF or pulmonary edema. Will provide 125 Solu-Medrol Patient placed on BiPAP, 10-10, 30%, O2 sats were 95%. Subsequently she was transferred to 10, 40% in order to sustain an appropriate O2 sats. She did Very Well to the BiPAP, Heart Rate Now 100, Respirations 20, O2 Sat 98% and Her Blood Pressure Is 104/66. Laboratory values reveal a white blood cell count of 18.63, difficult to say whether this is steroid-induced for an infectious process. D-dimer 826. ABG was ordered but respiratory unable to pain, this was changed to a DVT. Lactate of 9.9 sodium 130 potassium 5.7 anion gap 16 5 glucose 550, creatinine 1.7 for GFR of 29.22 calcium 8.4, troponin 75. Denies any chest pain, likely demand related. BNP at 13,037. Procalcitonin of 0.3 Urinalysis pending Laboratory values are concerning for DKA. At this time will initiat insulin drip and provide 1 L IV fluids. CTA reveals moderate right pleural effusion and severe emphysema but negative for PE or infiltrate. No clear infectious process, has not initiated antibiotic therapy. Glucose down to 303 Case discussed with our hospitalist team, Dr. Ramesh, who is agreeable to admission to the ICU. He will write admission orders. Medical Records Medical records reviewed: Yes I reviewed the patient's medical records. Imaging Data Radiologic Study: Attestation: I personally reviewed and interpreted this imaging study as follows: Imaging: CT Scan Radiologist's impression: PROCEDURE INFORMATION: Exam: CTA Chest With Contrast Exam date and time: 08/15/2021 4:46 PM Age: 76 years old Clinical indication: Other: SOB, hypoxic TECHNIQUE: Imaging protocol: Computed tomographic angiography of the chest with contrast. 3D rendering (Not supervised by radiologist): MIP and/or 3D reconstructed images were created by the technologist. Contrast material: OMNIPAQUE 350; Contrast volume: 60 ml; Contrast route: INTRAVENOUS (IV); COMPARISON: CT ANGIO CHEST 08/18/2020 6:52 PM FINDINGS: Pulmonary arteries: Normal. No pulmonary emboli. Aorta: Unremarkable. No aortic aneurysm. No aortic dissection. Other arteries: Moderate arteriosclerotic calcifications. Bilateral renal artery stenosis questioned. Stenosis noted in the superior mesenteric artery. Lungs: Severe emphysema. Mild areas of scar tissue or atelectasis suspected in the lung bases, similar to previous. Pleural spaces: Moderate right pleural effusion. No pneumothorax. Heart: Unremarkable. No cardiomegaly. No pericardial effusion. Lymph nodes: Unremarkable. No enlarged lymph nodes. Bones/joints: Extensive costochondral calcifications noted. Compression fractures at T12, L1, and L2 are similar to previous. Multilevel degenerative changes noted. Soft tissues: Unremarkable. Other findings: Exam limited by motion artifact. SANDRA GILES Preliminary Radiology Report INSURANCE ACTUARY (QA) DISCREPANCY? If there is a discrepancy between the preliminary and final interpretation, please notify ad via [email or web address]. If you do not have access to our QA portal, call our QA team at [phone] CONFIDENTIALITY STATEMENT This report is intended only for the use of the referring physician, and only in accordance with law, If you received this in error, call [phone] Page 2 of 2 IMPRESSION: 1. Negative for pulmonary embolism. 2. Moderate right pleural effusion. 3. Severe emphysema. Lab Data Lab results reviewed: Yes I reviewed the patient's lab results. Labs: 08/15/21 17:00 Blood Blood Culture - Pending 08/15/21 17:00 Blood Blood Culture - Pending Laboratory Tests Range/Units 08/15/21 08/15/21 08/15/21 15:50 15:50 15:50 WBC (4.4-10.8) 10^3/uL RBC (3.93-5.22) 10^6/uL Hgb (11.2-15.7) g/dL Hct (36.0-46.0) % MCV (80-95) fL MCH (27.0-33.0) pg MCHC (32.0-36.0) % RDW (11.7-14.6) % Plt Count (130-400) 10^3/uL MPV (8.0-11.0) fL Immature Gran % Neutrophils % Lymphocytes % Monocytes % Eosinophils % Basophils % Nucleated RBC % % Absolute Neutrophils (1.2-6.7) 10^3/uL Absolute Lymphocytes (1.2-3.4) 10^3/uL Absolute Monocytes (0.1-0.8) 10^3/uL Absolute Eosinophils (0.0-0.7) 10^3/uL Absolute Basophils (0.0-0.2) 10^3/uL RBC Morphology Polychromasia Hypochromasia Poikilocytosis Anisocytosis Microcytosis PT (9.3-11.0) sec 11.0 INR (0.9-1.1) 1.1 APTT (21.0-27.5) sec 23.0 D-Dimer (<500) ng/mlFEU 826 H VBG Lactate (0.6-1.4) mmol/L Sodium (136-145) mmol/L 132 L Potassium (3.5-5.1) mmol/L 5.7 H Chloride (98-107) mmol/L 99 Carbon Dioxide (21.0-32.0) mmol/L 16.5 L Anion Gap (3-11) mmol/L 16.5 H BUN (7-18) mg/dL 29 H Creatinine (0.55-1.02) mg/dL 1.7 H Estimated GFR/1.73 m2 (mL/min/1.73m2) 29.22 Glucose (74-106) mg/dL 550 H* Calcium (8.5-10.1) mg/dL 8.4 L Magnesium (1.8-2.4) mg/dL 2.1 Total Bilirubin (0.2-1.0) mg/dL 0.4 AST (15-37) U/L 36 ALT (14-59) U/L 85 H Alkaline Phosphatase (46-116) U/L 62 Troponin I (<or=60) ng/L 56 NT-Pro-B Natriuret Pep (<300) pg/mL 49812 H Total Protein (6.4-8.2) g/dL 6.8 Albumin (3.4-5.0) g/dL 3.3 L Procalcitonin ng/mL COVID-19 Source SARS-CoV-2 (PCR) (Negative) Influenza Type A (PCR) (Negative) Influenza Type B (PCR) (Negative) RSV (PCR) (Negative) Range/Units 08/15/21 08/15/21 08/15/21 15:50 15:50 16:00 WBC (4.4-10.8) 10^3/uL 18.63 H RBC (3.93-5.22) 10^6/uL 5.32 H Hgb (11.2-15.7) g/dL 11.6 Hct (36.0-46.0) % 42.2 MCV (80-95) fL 79.3 L MCH (27.0-33.0) pg 21.8 L MCHC (32.0-36.0) % 27.5 L RDW (11.7-14.6) % 18.3 H Plt Count (130-400) 10^3/uL 434 H MPV (8.0-11.0) fL 10.6 Immature Gran % 1.1 Neutrophils % 93.4 Lymphocytes % 3.2 Monocytes % 2.1 Eosinophils % 0.0 Basophils % 0.2 Nucleated RBC % % 0 Absolute Neutrophils (1.2-6.7) 10^3/uL 17.40 H Absolute Lymphocytes (1.2-3.4) 10^3/uL 0.60 L Absolute Monocytes (0.1-0.8) 10^3/uL 0.39 Absolute Eosinophils (0.0-0.7) 10^3/uL 0.00 Absolute Basophils (0.0-0.2) 10^3/uL 0.04 RBC Morphology See Below Polychromasia Present Hypochromasia 1+ Poikilocytosis 1+ Anisocytosis 1+ Microcytosis 1+ PT (9.3-11.0) sec INR (0.9-1.1) APTT (21.0-27.5) sec D-Dimer (<500) ng/mlFEU VBG Lactate (0.6-1.4) mmol/L 9.9 H* Sodium (136-145) mmol/L Potassium (3.5-5.1) mmol/L Chloride (98-107) mmol/L Carbon Dioxide (21.0-32.0) mmol/L Anion Gap (3-11) mmol/L BUN (7-18) mg/dL Creatinine (0.55-1.02) mg/dL Estimated GFR/1.73 m2 (mL/min/1.73m2) Glucose (74-106) mg/dL Calcium (8.5-10.1) mg/dL Magnesium (1.8-2.4) mg/dL Total Bilirubin (0.2-1.0) mg/dL AST (15-37) U/L ALT (14-59) U/L Alkaline Phosphatase (46-116) U/L Troponin I (<or=60) ng/L NT-Pro-B Natriuret Pep (<300) pg/mL Total Protein (6.4-8.2) g/dL Albumin (3.4-5.0) g/dL Procalcitonin ng/mL 0.3 COVID-19 Source Nasopharynx SARS-CoV-2 (PCR) (Negative) Negative Influenza Type A (PCR) (Negative) Negative Influenza Type B (PCR) (Negative) Negative RSV (PCR) (Negative) Negative Range/Units 08/15/21 18:40 WBC (4.4-10.8) 10^3/uL RBC (3.93-5.22) 10^6/uL Hgb (11.2-15.7) g/dL Hct (36.0-46.0) % MCV (80-95) fL MCH (27.0-33.0) pg MCHC (32.0-36.0) % RDW (11.7-14.6) % Plt Count (130-400) 10^3/uL MPV (8.0-11.0) fL Immature Gran % Neutrophils % Lymphocytes % Monocytes % Eosinophils % Basophils % Nucleated RBC % % Absolute Neutrophils (1.2-6.7) 10^3/uL Absolute Lymphocytes (1.2-3.4) 10^3/uL Absolute Monocytes (0.1-0.8) 10^3/uL Absolute Eosinophils (0.0-0.7) 10^3/uL Absolute Basophils (0.0-0.2) 10^3/uL RBC Morphology Polychromasia Hypochromasia Poikilocytosis Anisocytosis Microcytosis PT (9.3-11.0) sec INR (0.9-1.1) APTT (21.0-27.5) sec D-Dimer (<500) ng/mlFEU VBG Lactate (0.6-1.4) mmol/L Sodium (136-145) mmol/L Potassium (3.5-5.1) mmol/L Chloride (98-107) mmol/L Carbon Dioxide (21.0-32.0) mmol/L Anion Gap (3-11) mmol/L BUN (7-18) mg/dL Creatinine (0.55-1.02) mg/dL Estimated GFR/1.73 m2 (mL/min/1.73m2) Glucose (74-106) mg/dL Calcium (8.5-10.1) mg/dL Magnesium (1.8-2.4) mg/dL Total Bilirubin (0.2-1.0) mg/dL AST (15-37) U/L ALT (14-59) U/L Alkaline Phosphatase (46-116) U/L Troponin I (<or=60) ng/L 75 H* NT-Pro-B Natriuret Pep (<300) pg/mL Total Protein (6.4-8.2) g/dL Albumin (3.4-5.0) g/dL Procalcitonin ng/mL COVID-19 Source SARS-CoV-2 (PCR) (Negative) Influenza Type A (PCR) (Negative) Influenza Type B (PCR) (Negative) RSV (PCR) (Negative) ECG Data Attestation: I personally reviewed and interpreted this ECG (s) as follows: Interpretation: Please see official report by Dr. Turner. Sinus tachycardia, ventricular rate of 132, no extending Lab Data Result diagrams: 08/15/21 15:50 08/15/21 15:50 ECG Data Attestation: I personally reviewed and interpreted this ECG (s) as follows: <Paul Turner MD - Last Filed: 08/15/21 18:22> [facility] Narrative Medical decision making narrative: Addvishal, RGT, 6:20 PM: Patient seen, examined [id number], discussed with Mr. Lee. I agree with his assessment and plan of care. Lab Data Labs: Lab Results 08/15/21 08/15/21 08/15/21 Range/Units 15:50 15:50 15:50 WBC (4.4-10.8) 10^3/uL RBC (3.93-5.22) 10^6/uL Hgb (11.2-15.7) g/dL Hct (36.0-46.0) % MCV (80-95) fL MCH (27.0-33.0) pg MCHC (32.0-36.0) % RDW (11.7-14.6) % Plt Count (130-400) 10^3/uL MPV (8.0-11.0) fL Immature Gran % Neutrophils % Lymphocytes % Monocytes % Eosinophils % Basophils % Nucleated RBC % % Absolute Neutrophils (1.2-6.7) 10^3/uL Absolute Lymphocytes (1.2-3.4) 10^3/uL Absolute Monocytes (0.1-0.8) 10^3/uL Absolute Eosinophils (0.0-0.7) 10^3/uL Absolute Basophils (0.0-0.2) 10^3/uL RBC Morphology Polychromasia Hypochromasia Poikilocytosis Anisocytosis Microcytosis PT 11.0 (9.3-11.0) sec INR 1.1 (0.9-1.1) APTT 23.0 (21.0-27.5) sec D-Dimer 826 H (<500) ng/mlFEU VBG Lactate (0.6-1.4) mmol/L Sodium 132 L (136-145) mmol/L Potassium 5.7 H (3.5-5.1) mmol/L Chloride 99 (98-107) mmol/L Carbon Dioxide 16.5 L (21.0-32.0) mmol/L Anion Gap 16.5 H (3-11) mmol/L BUN 29 H (7-18) mg/dL Creatinine 1.7 H (0.55-1.02) mg/dL Estimated GFR/1.73 m2 29.22 (mL/min/1.73m2) Glucose 550 H* (74-106) mg/dL Calcium 8.4 L (8.5-10.1) mg/dL Magnesium 2.1 (1.8-2.4) mg/dL Total Bilirubin 0.4 (0.2-1.0) mg/dL AST 36 (15-37) U/L ALT 85 H (14-59) U/L Alkaline Phosphatase 62 (46-116) U/L Troponin I 56 (<or=60) ng/L NT-Pro-B Natriuret Pep 26926 H (<300) pg/mL Total Protein 6.8 (6.4-8.2) g/dL Albumin 3.3 L (3.4-5.0) g/dL Procalcitonin ng/mL COVID-19 Source SARS-CoV-2 (PCR) (Negative) Influenza Type A (PCR) (Negative) Influenza Type B (PCR) (Negative) RSV (PCR) (Negative) 08/15/21 08/15/21 08/15/21 Range/Units 15:50 15:50 16:00 WBC 18.63 H (4.4-10.8) 10^3/uL RBC 5.32 H (3.93-5.22) 10^6/uL Hgb 11.6 (11.2-15.7) g/dL Hct 42.2 (36.0-46.0) % MCV 79.3 L (80-95) fL MCH 21.8 L (27.0-33.0) pg MCHC 27.5 L (32.0-36.0) % RDW 18.3 H (11.7-14.6) % Plt Count 434 H (130-400) 10^3/uL MPV 10.6 (8.0-11.0) fL Immature Gran % 1.1 Neutrophils % 93.4 Lymphocytes % 3.2 Monocytes % 2.1 Eosinophils % 0.0 Basophils % 0.2 Nucleated RBC % 0 % Absolute Neutrophils 17.40 H (1.2-6.7) 10^3/uL Absolute Lymphocytes 0.60 L (1.2-3.4) 10^3/uL Absolute Monocytes 0.39 (0.1-0.8) 10^3/uL Absolute Eosinophils 0.00 (0.0-0.7) 10^3/uL Absolute Basophils 0.04 (0.0-0.2) 10^3/uL RBC Morphology See Below Polychromasia Present Hypochromasia 1+ Poikilocytosis 1+ Anisocytosis 1+ Microcytosis 1+ PT (9.3-11.0) sec INR (0.9-1.1) APTT (21.0-27.5) sec D-Dimer (<500) ng/mlFEU VBG Lactate 9.9 H* (0.6-1.4) mmol/L Sodium (136-145) mmol/L Potassium (3.5-5.1) mmol/L Chloride (98-107) mmol/L Carbon Dioxide (21.0-32.0) mmol/L Anion Gap (3-11) mmol/L BUN (7-18) mg/dL Creatinine (0.55-1.02) mg/dL Estimated GFR/1.73 m2 (mL/min/1.73m2) Glucose (74-106) mg/dL Calcium (8.5-10.1) mg/dL Magnesium (1.8-2.4) mg/dL Total Bilirubin (0.2-1.0) mg/dL AST (15-37) U/L ALT (14-59) U/L Alkaline Phosphatase (46-116) U/L Troponin I (<or=60) ng/L NT-Pro-B Natriuret Pep (<300) pg/mL Total Protein (6.4-8.2) g/dL Albumin (3.4-5.0) g/dL Procalcitonin 0.3 ng/mL COVID-19 Source Nasopharynx SARS-CoV-2 (PCR) Negative (Negative) Influenza Type A (PCR) Negative (Negative) Influenza Type B (PCR) Negative (Negative) RSV (PCR) Negative (Negative) HPI <SANA Sherwood - Last Filed: 08/15/21 19:46> General Mode of arrival: wheelchair . Date/Time Provider Initiated Documentation: 08/15/21 15:23 . Limitations to Documentation: physical limitation (SOB) . Information obtained by: patient and family (daughters and [id number]) . HPI Narrative: This is a 76-year-old female, complicated and extensive past history which includes appendiceal adenocarcinoma, emphysema-COPD CAD, CHF, [place], chronic anticoagulation, extremity bypass graft, thyroid disease, tension, diabetes, presents to the ER for acute respiratory distress. I am told that she was discharged from [facility] on Thursday for generalized weakness, altered mental status, shortness of breath. She has been recently placed on steroids. She is a palliative care patient, DNR, DNI. Initially it is difficult to obtain any HPI from her as she is in distress and only able to speak in 2-3 word sentences. She currently denies any pain. Complaint is that of difficulty breathing. She is typically on 6 L nasal cannula but presented to the ER on 3 L. I am told by her family that she has been sleeping in her recliner since Thursday. They are concerned because she very easily get fluid overloaded. Also reports recurrent pneumonia. Related Data Home Medications Medication Instructions Recorded Confirmed acetaminophen 325 mg tablet 650 mg PO BID PRN tab 11/26/18 08/15/21 loperamide-simethicone 2 mg-125 mg 1 tab PO Q3H PRN 06/16/19 08/15/21 tablet Oxygen Titration #1 ea 09/02/19 08/13/21 melatonin 5 mg tablet 10 mg PO HS tab 06/01/20 08/15/21 Oxygen #1 each 06/14/20 08/13/21 cholecalciferol (vitamin D3) 125 125 mcg PO DAILY 09/05/20 08/15/21 mcg (5,000 unit) tablet metoprolol succinate 25 mg 25 mg PO DAILY 03/18/21 08/15/21 tablet,extended release 24 hr nitroglycerin 0.4 mg sublingual 0.4 mg SUBLINGUAL Q5M PRN 03/18/21 08/15/21 tablet (Nitrostat) levothyroxine 100 mcg tablet 100 mcg PO DAILY #90 tab 03/19/21 08/15/21 metformin 500 mg tablet 500 mg PO BID #180 tab 03/19/21 08/15/21 potassium chloride 20 mEq 20 meq PO DAILY #90 tab 03/19/21 08/15/21 tablet,extended release levalbuterol tartrate 45 2 inh INHALATION Q6H #15 g 03/22/21 08/15/21 mcg/actuation aerosol inhaler (Xopenex HFA) furosemide 20 mg tablet 20 mg PO DAILY #30 tab 04/16/21 08/15/21 apixaban 2.5 mg tablet (Eliquis) 2.5 mg PO BID #180 tab 04/19/21 08/15/21 Wheelchair #1 ea 04/25/21 08/13/21 lancets (Accu-Chek Softclix #100 ea 04/25/21 08/13/21 Lancets) lancing device with lancets kit #1 ea 04/25/21 08/13/21 (Accu-Chek Soft Dev Lancets) pen needle, diabetic 31 gauge x #100 ea 05/02/21 08/13/2109/11 (BD Ultra-Fine Mini Pen Needle) blood sugar diagnostic #100 ea 05/09/21 08/13/21 blood-glucose meter #1 ea 05/09/21 08/13/21 tiotropium 2.5 mcg-olodaterol 2.5 2 puff INHALATION DAILY #4 g 06/04/21 08/15/21 mcg/actuation mist for inhalation (Stiolto Respimat) ipratropium 0.5 mg-albuterol 3 mg 3 ml INHALATION .COMPLEX #540 ml 07/06/21 08/15/21 (2.5 mg base)/3 mL nebulization soln lorazepam 0.5 mg tablet 0.5 mg PO ONCE PRN #2 tab 07/24/21 08/15/21 amlodipine 2.5 mg tablet See Rx Instructions .ROUTE 08/10/21 08/15/21 .COMPLEX #90 tab empagliflozin 10 mg tablet See Rx Instructions .ROUTE 08/10/21 08/15/21 (Jardiance) .COMPLEX #90 tab morphine 10 mg/5 mL oral solution 2 mg PO Q4H PRN #100 ml MDD 10mg 08/13/21 08/15/21 insulin glargine 100 unit/mL (3 24 unit SUBCUT DAILY ml 08/14/21 08/15/21 mL) subcutaneous pen (Basaglar KwikPen U-100 Insulin) prednisone 10 mg tablet 10 mg PO DAILY #30 tab 08/14/21 08/15/21 prednisone 20 mg tablet 20 mg PO DAILY #30 tab 08/14/21 08/14/21 Previous Rx's Medication Instructions Recorded Oxygen Titration #1 ea 09/02/19 Oxygen #1 each 06/14/20 levothyroxine 100 mcg tablet 100 mcg PO DAILY #90 tab 03/19/21 metformin 500 mg tablet 500 mg PO BID #180 tab 03/19/21 potassium chloride 20 mEq 20 meq PO DAILY #90 tab 03/19/21 tablet,extended release levalbuterol tartrate 45 2 inh INHALATION Q6H #15 g 03/22/21 mcg/actuation aerosol inhaler (Xopenex HFA) furosemide 20 mg tablet 20 mg PO DAILY #30 tab 04/16/21 apixaban 2.5 mg tablet (Eliquis) 2.5 mg PO BID #180 tab 04/19/21 Wheelchair #1 ea 04/25/21 lancets (Accu-Chek Softclix #100 ea 04/25/21 Lancets) lancing device with lancets kit #1 ea 04/25/21 (Accu-Chek Soft Dev Lancets) pen needle, diabetic 31 gauge x #100 ea 05/02/21 3/16 (BD Ultra-Fine Mini Pen Needle) blood sugar diagnostic #100 ea 05/09/21 blood-glucose meter #1 ea 05/09/21 tiotropium 2.5 mcg-olodaterol 2.5 2 puff INHALATION DAILY #4 g 06/04/21 mcg/actuation mist for inhalation (Stiolto Respimat) ipratropium 0.5 mg-albuterol 3 mg 3 ml INHALATION .COMPLEX #540 ml 07/06/21 (2.5 mg base)/3 mL nebulization soln lorazepam 0.5 mg tablet 0.5 mg PO ONCE PRN #2 tab 07/24/21 amlodipine 2.5 mg tablet See Rx Instructions .ROUTE 08/10/21 .COMPLEX #90 tab empagliflozin 10 mg tablet See Rx Instructions .ROUTE 08/10/21 (Jardiance) .COMPLEX #90 tab morphine 10 mg/5 mL oral solution 2 mg PO Q4H PRN #100 ml MDD 10mg 08/13/21 prednisone 10 mg tablet 10 mg PO DAILY #30 tab 08/14/21 prednisone 20 mg tablet 20 mg PO DAILY #30 tab 08/14/21 Allergies Allergy/AdvReac Type Severity Reaction Status Date / Time Penicillins Allergy Unknown Verified 08/13/21 14:14 Influenza Virus Vaccines AdvReac Mild cellulitis Verified 07/10/21 08:49 General Stated Complaint: SOB JENNIFER: 1 Review of Systems <SANA Sherwood - Last Filed: 08/15/21 19:46> Unobtainable due to (Unable to perform secondary to respiratory distress) Constitutional Constitutional: Denies fever(s) Cardiovascular Cardiovascular: Denies chest pain and Reports dyspnea Respiratory Respiratory: Reports dyspnea Gastrointestinal Gastrointestinal: Denies abdominal pain, Denies nausea and Denies vomiting Integumentary/Breasts Skin/Breast: Denies rash Hematologic/Lymphatic Hematologic/Lymphatic: Reports easy bleeding and Reports easy bruising PFSH <SANA Sherwood - Last Filed: 08/15/21 19:46> All Active Problems Acute respiratory distress (Acute) DKA (diabetic ketoacidosis) (Acute) Elevated troponin (Acute) Dehydration (Acute) Acute on chronic, with presumed affect on ADL. Considering gentle hydration to help with ADL, but close monitoring required due to high risk of fluid overload 2' HF. Abnormal PET scan of lung (Acute) (+) lung nodules, serosal implants, possible pancreatic mass 07/19/21. 2[place] [facility] [place] decide on [place] for possible metastatic condition. Mild cognitive impairment (Acute) Memory changes (Acute) Acute, possibly 2' steroids .. but she and family have noticed changes x months .. [ ] Neuro Pulmonary nodule (Acute) Mobility impaired (Acute) Due to SOB, Ox Dependence, Deconditioning (incl muscle loss) .. ADL are becomin glimited which is terrible for her .. she needs to return to work, errands, etc .. CAD (coronary artery disease) (Chronic) ASA Class IV per Cardio notes .. mild diffuse stenosis per [facility], 02/2021 (no stenting).. Hx of fluid overload (Acute) Each hospitalization has notable fluid, with use of diuretics. No LE Edema! Hospitalization or health care facility admission within last 6 months (Acute) 02/2021 ([facility]?).. 03/2021 (2D ICU [facility]), then 6D [facility], d/c 04/15, reviewing in [facility], 03/17/21... COPD (chronic obstructive pulmonary disease) (Chronic) Non-ST elevation myocardial infarction (NSTEMI) in recovery phase (Acute) Adenocarcinoma, appendix (Acute ~02/2021) Per [facility] [facility] note from 03/13/21 Chronic respiratory failure with hypoxia (Acute) Met w/ [facility], XXX .... Hx [facility] Cough with hemoptysis (Acute) Wedge compression fracture of first lumbar vertebra, sequela (Acute) Age-related osteoporosis with current pathological fracture, unspecified site, sequela (Acute) Myalgia (Acute) 06/12/20 [facility] Edema leg (Acute) Arteriovenous malformation (Acute 11/16/19) recommend pulmonary angiography and embolization Ray Minor MD Tinea unguium (Acute) 11/08/19 Dr Young Pulmonary hypertension, unspecified (Chronic 10/11/19) [facility] 08[place]22/20 [place] at [facility] Hypoxia (Acute 09/06/19) Chronic anticoagulation (Acute) Supplemental oxygen dependent (Acute) Oxygen desaturation (Acute) Serious desaturations occurring with little exertion. Recomm oxygen with exertion as well as overnight, 07/2019. Chronic obstructive pulmonary disease with (acute) exacerbation (Acute) 07/20/19[place]Dr. Smith (Hospitalized @ [facility], 07/04- 07/07/19). [ ] APpt with [facility] (per Luis's referral). 09/06/19 [facility] - COPD Gold Stage 1 Category B 09/06/19 Echo at [facility] (peripheral artery disease) (Chronic) 10/2019, [facility] 06/17/19 [facility] [place], s/p fem-fem+. Numbness in right leg (Acute) Diverticulitis (Chronic) Diarrhea (Acute) Improved, 05/02/21! Seems increased since chemo, but possibly due to Metformin and/or Januvia? 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 s/p surgery; chemotherapy starting 12/10/18. Elevated CEA Thrombosis (Acute) s/p fem-fem bypass graft; on eliquis Emphysema lung (Chronic) Elevated white blood cell count (Acute) Hypoglycemia (Acute) Bilateral hearing loss (Chronic) Joint disorder (Chronic) Mixed hyperlipidemia (Chronic) Hypothyroidism (Chronic) Essential hypertension (Chronic) Good BP, 10/2018. Acceptable BP off lisinopril, risk of dizziness and low BP higher than elevated BP, so monitor w/o ACEi at the moment. As health improves, hope to re-start ACEi for renal-protection as much as BP control. 12/09/18. Type II diabetes mellitus (Chronic) Medical History Cataract Positive MECCA (antinuclear antibody) 06/12/20 [facility] [place] History History of fasciotomy thrombosis while in OR for appendectomy requiring thrombectomy and fasciotomy to rle. 10/07/18 [facility] History of left cataract surgery (~12/02/16) History of right cataract surgery (~2005) Family History Daughter Anemia Diabetes Hypertension Father COPD (chronic obstructive pulmonary disease) Son Diabetes Heart disease Mother CAD (coronary artery disease) Social History Smoking/Tobacco Use Status: Never Smoking risk assessment performed?: Yes Alcohol Intake: never Drug use: Never Substance use type: does not use current occupation: [email or web address] Do you feel safe at home: Yes Do you feel safe in your relationship?: Yes Exam <SANA Sherwood - Last Filed: 08/15/21 19:46> Const General: cooperative, in distress, anxious and ill appearing chronically Orientation: alert, awake and oriented x3 HENMT Head: normal to inspection, normocephalic and atraumatic Face and sinus: normal facial exam Mouth: moist mucous membranes abnormal (dry) Eyes General: appearance normal, both eyes and all related structures Conjunctivae: conjunctivae normal Neck Neck: normal visual inspection, trachea midline and supple Chest Other: Port present Resp Effort & Inspection: labored, respiratory distress and tachypneic Auscultation: diminished lung sounds bilaterally in the lower lung aguilar (Worse on the right) Cardio Rate: tachycardic (130s) Rhythm: regular rhythm GI Palpation: soft and nontender Back/Spine/Pelvis Back: No back tenderness Skin General skin exam: no rashes or lesions noted Neuro General: patient alert, patient awake, moves all extremities and no focal motor deficits Cognition: normal cognition Speech: other (2-3 word sentences) Motor: muscle tone normal throughout Sensory Exam: no sensory deficits noted Extrem General: full ROM, capillary refill normal, no calf tenderness and edema Laterality: bilateral (1+, nonpitting) Psych Appearance: grossly normal Mental Status: mental status grossly normal Course <SANA Sherwood - Last Filed: 08/15/21 19:46> Vital Signs Vital signs: Vital Signs Temperature 36.3 C L 08/15/21 15:31 Pulse 133 H 08/15/21 15:31 Respiratory Rate 34 H 08/15/21 15:31 Blood Pressure 94/63 L 08/15/21 15:31 Pulse Oximetry 83 L 08/15/21 15:31 Temperature 36.3 C L 08/15/21 15:31 Temperature Source Skin 08/15/21 15:31 Pulse 133 H 08/15/21 15:31 Respiratory Rate 34 H 08/15/21 15:31 Respiratory Effort 08/15/21 15:54 Blood Pressure 94/63 L 08/15/21 15:31 Pulse Oximetry 83 L 08/15/21 15:31 Oxygen Delivery Method Nasal Cannula 08/15/21 15:31 Oxygen Flow Rate 2 08/15/21 15:31 Comment 08/15/21 15:31 Critical Care Time <SANA Sherwood - Last Filed: 08/15/21 19:46> Critical Care Time Critical Care Time: Yes Total Critical Care Time: 55 Attestation: Upon my evaluation, this patient had a high probability of clinically significant, life-threatening deterioration due to their current medical conditions, which required my direct attention, intervention, and personal management. I have personally provided greater than 30 minutes of critical care time exclusive of the time spend on separately billable procedures. Time includes obtaining a history, examining the patient, pulse oximetry, review of laboratory data, radiology results, discussion with consultants, arranging urgent treatment with development of a management plan, evaluation of patient's response to treatment, and monitoring for potential decompensation. Interventions were performed as documented above.
[2021-08-15] MEDS: methylPREDNISolone SUCC 125 MG VIAL IVP (15:57)
[2021-08-15 16:02] LABS: Source Nasopharynx
[2021-08-15 16:05] LABS: Abs Immature Grans 0.21 10^3/uL (0.0-0.06); Absolute Monocyte Count 0.39 10^3/uL (0.1-0.8); Basophils % 0.2; HCT 42.2 % (36.0-46.0); HGB 11.6 g/dL (11.2-15.7); Immature Grans % 1.1; Lymphocytes % 3.2; MCH 21.8 pg (27.0-33.0); MCHC 27.5 % (32.0-36.0); MCV 79.3 fL (80-95); MPV 10.6 fL (8.0-11.0); Monocytes % 2.1; Neutrophils % 93.4; Nucleated RBC 0 %; Platelet Count 434 10^3/uL (130-400); RBC 5.32 10^6/uL (3.93-5.22); RDW 18.3 % (11.7-14.6); RDW-SD 51.7 fL; WBC 18.63 10^3/uL (4.4-10.8)
[2021-08-15 16:07] LABS: Absolute Basophil Count 0.04 10^3/uL (0.0-0.2)
[2021-08-15 16:19] LABS: Lactate 9.9 mmol/L (0.6-1.4)
[2021-08-15 16:22] LABS: INR 1.1 (0.9-1.1)
[2021-08-15 16:27] LABS: ALT 85 U/L (14-59); AST 36 U/L (15-37); Albumin 3.3 g/dL (3.4-5.0); Alkaline Phosphatase 62 U/L (46-116); Anion Gap 16.5 mmol/L (3-11); BUN 29 mg/dL (7-18); Bilirubin, Total 0.4 mg/dL (0.2-1.0); CO2 16.5 mmol/L (21.0-32.0); CREATININE 1.7 mg/dL (0.55-1.02); Calcium 8.4 mg/dL (8.5-10.1); Chloride 99 mmol/L (98-107); Estimated GFR 29.22 (mL/min/1.73m2); Magnesium 2.1 mg/dL (1.8-2.4); Potassium 5.7 mmol/L (3.5-5.1); Sodium 132 mmol/L (136-145); Total Protein 6.8 g/dL (6.4-8.2); Troponin I 56 ng/L (<or=60)
[2021-08-15 16:33] LABS: Glucose 550 mg/dL (74-106)
[2021-08-15 16:43] LABS: D-Dimer 826 ng/mlFEU (<500)
--- NOTE | 2021-08-15 16:45 | DI.CT_ITS ---
Exam(s) CT CHEST PE CTA EXAM: CT CHEST PE CTA CLINICAL HISTORY: sob,hypoxic. TECHNIQUE: Imaging Protocol: Axial CT angiography was performed with multi-slice acquisition and mu lti-planar and/or 3D reconstructions. CONTRAST MATERIAL: Intravenous: Omnipaque 350 Contrast volume:60 mL COMPARISON: CT CT CHEST WO from 05/31/2021 FINDINGS: The examination is limited due to patient motion artifact. Tracheobronchial tree: Patent where visualized. Pulmonary parenchyma: The pleural based nodules are again seen in the right lung base. There is a ri ght basilar infiltrate present. This may represent atelectasis or pneumonia. The nodular thickening along the right major fissure is unchanged. Centrilobular emphysematous changes are present in the lungs. Pulmonary Arteries: No evidence of filling defect to suggest pulmonary emboli. Evaluation of some of the peripheral pulmonary arteries is limited due to patient motion artifact. Mediastinum and Radha: No dominant adenopathy or fluid collection. The esophagus is unremarkable. Visualized thyroid gland: Unremarkable. Pleura: There is now a moderate size right pleural effusion. No left pleural effusion. No pneumotho rax. Heart: The heart is not dilated. Coronary artery calcifications are present. No pericardial effusion . Aorta: Thoracic aorta non-dilated. No evidence of dissection. Atherosclerosis is present. Upper abdomen: Unremarkable. Tubes, Catheters, and Lines: The tip of the indwelling central venous catheter is in good position at the junction of the superior vena cava and right atrium. Soft tissues: Unremarkable. Bones: There are stable lower thoracic and lumbar compression fracture deformities.Degenerative cruz es are present in the spine. IMPRESSION: 1. No evidence of pulmonary embolism, thoracic aortic dissection or aneurysm. 2. Development of a new moderate left pleural effusion. 3. Right basilar infiltrate which may represent atelectasis or pneumonia. 4. Persistent pleural nodular thickening in the right hemithorax. RADIATION DOSE DELIVERED: 415.42mGy.cm Total DLP DATA REPOSITORY: All CT scans at this facility are submitted to the National Radiology Data Registry (NRDR) Dose Index Registry (DIR) with the [employer] (ACR). RADIATION OPTIMIZATION: All CT scans at this facility use at least one of these dose optimization te chniques: automated exposure control; mA and/or kV adjustment per patient size (includes targeted exa ms where dose is matched to clinical indication); or iterative reconstruction.
[2021-08-15 16:52] LABS: Anisocytosis 1+; Diff Comment RBC Morph Reviewed; Hypochromasia 1+; Microcytosis 1+; Poikilocytes 1+; Polychromasia Present
--- NOTE | 2021-08-15 16:55 | SUR.PHASEI ---
pt with sob and low o2 sat pt in 70s mask pulled off patient trying to get out of bed. pt placed back on bipap fio2 increased to 40% tp given ativan 1mg iv
[2021-08-15 16:58] LABS: Procalcitonin 0.3 ng/mL
[2021-08-15] MEDS: LORazepam 2 MG/ML VIAL 1 MG IVP (16:58)
[2021-08-15] MEDS: Normal Saline 1,000 ML 1000 ML IV (16:58)
[2021-08-15] MEDS: INSULIN REGULAR IN 0.9 % NACL 100 UNIT/100 ML BAG IV (17:00)
[2021-08-15 17:02] LABS: COVID-19 PCR Negative (Negative); Influenza A PCR Negative (Negative); Influenza B PCR Negative (Negative); RSV PCR Negative (Negative)
[2021-08-15 17:10] LABS: NT-proBNP 16037 pg/mL (<300)
--- NOTE | 2021-08-15 17:45 | RESPIRATORY ---
DYLAN AND MYSELF BOTH ATTEMPTED ABG WE WERE NOT ABLE TO OBTAIN, REQUESTED VBG.
--- NOTE | 2021-08-15 17:56 | SUR.PHASEI ---
pt insulin decreased by 1 unit per hour according to lauren
[2021-08-15] MEDS: Omnipaque 350 MG/ML 100 ML BTL 60 ML IJ (18:21)
[2021-08-15] MEDS: Normal Saline Flush 10 ML SYR IVP (18:23)
--- NOTE | 2021-08-15 18:59 | DI.VRAD_ITS ---
PROCEDURE INFORMATION: Exam: CTA Chest With Contrast Exam date and time: 08/15/2021 4:46 PM Age: 76 years old Clinical indication: Other: SOB, hypoxic TECHNIQUE: Imaging protocol: Computed tomographic angiography of the chest with contrast. 3D rendering (Not supervised by radiologist): MIP and/or 3D reconstructed images were created by the technologist. Contrast material: OMNIPAQUE 350; Contrast volume: 60 ml; Contrast route: INTRAVENOUS (IV); COMPARISON: CT ANGIO CHEST 08/18/2020 6:52 PM FINDINGS: Pulmonary arteries: Normal. No pulmonary emboli. Aorta: Unremarkable. No aortic aneurysm. No aortic dissection. Other arteries: Moderate arteriosclerotic calcifications. Bilateral renal artery stenosis questioned. Stenosis noted in the superior mesenteric artery. Lungs: Severe emphysema. Mild areas of scar tissue or atelectasis suspected in the lung bases, similar to previous. Pleural spaces: Moderate right pleural effusion. No pneumothorax. Heart: Unremarkable. No cardiomegaly. No pericardial effusion. Lymph nodes: Unremarkable. No enlarged lymph nodes. Bones/joints: Extensive costochondral calcifications noted. Compression fractures at T12, L1, and L2 are similar to previous. Multilevel degenerative changes noted. Soft tissues: Unremarkable. Other findings: Exam limited by motion artifact. IMPRESSION: 1. Negative for pulmonary embolism. 2. Moderate right pleural effusion. 3. Severe emphysema. Dictated and Authenticated by: Vazquez Torrez MD. Ordering:JACQUIE Machado MD
[2021-08-15 19:08] LABS: Troponin I 75 ng/L (<or=60)
--- NOTE | 2021-08-15 19:20 | SUR.PHASEI ---
pt with bilateral hearing aids in place also with upper dentures in place
[2021-08-15 19:36] LABS: Bilirubin Negative (Negative); Blood Moderate (Negative); Clarity Clear (Clear); Glucose >=1000 mg/dL (Negative); Ketones Negative (Negative); Leukocyte Esterase Negative (Negative); Nitrite Negative (Negative); Specific Gravity 1.015 (1.005-1.025); Urobilinogen 0.2 EU/dL (Up TO 0.2); pH 5.5 (5-8)
[2021-08-15 19:43] LABS: Bacteria Negative HPF (Negative); C & S Indicated? No; Casts Negative LPF (Negative); Crystals Negative HPF (Negative); Epithelial Cells Few HPF (Negative); Mucus Negative (Negative); Other Cells Negative (Negative); WBC 0-2 HPF (0-5)
[2021-08-15 21:36] LABS: Anion Gap 8.6 mmol/L (3-11); BUN 22 mg/dL (7-18); CO2 21.4 mmol/L (21.0-32.0); Calcium 7.5 mg/dL (8.5-10.1); Chloride 107 mmol/L (98-107); Estimated GFR 53.91 (mL/min/1.73m2); Glucose 137 mg/dL (74-106); Potassium 4.5 mmol/L (3.5-5.1); Sodium 137 mmol/L (136-145)
[2021-08-15] MEDS: DEXTROSE 5%-0.45% SALINE 1,000 ML 100 ML IV (22:19)
[2021-08-15] MEDS: Apixaban 2.5 MG TAB PO (22:19)
[2021-08-15] MEDS: Albuterol/Ipratropium 3 ML UPD VIAL UPD (22:20)
[2021-08-15] MEDS: Insulin Glargine 300 UNITS/3 ML PEN 12 UNITS SC (22:21)
[2021-08-16] VITALS (51 sets, daily range): BP systolic 65–120; BP diastolic 46–75; PULSE 78–121; RESP 1–33; TEMP 31–37; O2SAT 71–97
[2021-08-16 01:26] LABS: Anion Gap 8.9 mmol/L (3-11); BUN 22 mg/dL (7-18); CO2 21.1 mmol/L (21.0-32.0); Calcium 7.5 mg/dL (8.5-10.1); Chloride 107 mmol/L (98-107); Estimated GFR 53.91 (mL/min/1.73m2); Glucose 116 mg/dL (74-106); Potassium 4.4 mmol/L (3.5-5.1); Sodium 137 mmol/L (136-145)
[2021-08-16 01:35] LABS: Lactate 2.1 mmol/L (0.6-1.4)
--- NOTE | 2021-08-16 02:15 | NUR.NOTE ---
insulin gtt paused per order and protocol for stopping drip. Nursing Note:
--- NOTE | 2021-08-16 06:15 | HPE_ITS ---
Date of service: 08/15/21 Time of Service: 21:30 Assessment and Plan Assessment and plan (1) DKA (diabetic ketoacidosis): Status: Acute Assessment and plan: She is on metformin and Jardiance at home Recently (08/13/21)started on 20mg daily prednisone for 1 week then to decrease to 10mg daily. Now in DKA and on an insulin drip A1c was 7.7 in Mar 2021; repeat A1c pending. (2) Acute respiratory distress: Status: Acute Assessment and plan: Likely a combination of factors; COPD, moderate pleural effusion DKA, pulmonary hypertension. No evidence of infiltrates/consolidations or edema on CT chest. Consider further diuresis given the pleural effusion that is present; now on her home dose of lasix 20mg daily She was back on her baseline supplemental O2 of 6L NC (3) Elevated troponin: Status: Acute Assessment and plan: 56 > 75 > pending Likely demand ischemia from respiratory distress. (4) Abnormal PET scan of lung: Status: Acute Assessment and plan: Recent + PET scan per PCP note with plans of repeat. She and family are making decision on how to proceed. (5) Mild cognitive impairment: Status: Acute Assessment and plan: Stable. No behavioral concerns. (6) CAD (coronary artery disease): Status: Chronic Assessment and plan: No c/o CP/angina. Not on ASA or BB. (7) Adenocarcinoma, appendix: Status: Acute Assessment and plan: See PET scan (8) Pulmonary hypertension, unspecified: Status: Chronic Assessment and plan: Echocardiogram in Mar 2021 showed a PA systolic pressure of 52 (9) Chronic respiratory failure with hypoxia: Status: Acute Assessment and plan: Was using only 3L supplemental O2 as noted by EMS; 6L is her prescribed amount. Once in the ICU she was stable on 6L Monitor and titrate as needed. (10) Chronic obstructive pulmonary disease with (acute) exacerbation: Status: Acute Assessment and plan: On Stiolto, Duonebs and prn xopenex. Cont 20mg prednisone; received 125mg IV in the ED (11) Type II diabetes mellitus: Status: Chronic Assessment and plan: A!C pending. DKA currently on insulin drip. History of Present Illness History of Present Illness Chief Complaint: Shortness of breath Narrative: This is a 76-year-old female with an extensive past history which includes appendiceal adenocarcinoma, emphysema-COPD CAD, CHF, NE, chronic antico agulation, extremity bypass graft, thyroid disease, diabetes, who presented to the ER for acute respiratory distress.Her daughters and [id number] assist the patient in giving her recent history.? It was endorsed that she was discharged from [facility] on Thursday prior to this presentation for generalized weakness, altered mental status, shortness of breath.? She had been recently placed on a steroid taper by her PCP.? She is a palliative care patient, DNR, DNI.? Initially only able to speak in 2-3 word sentences.? She did deny any pain.?She c/o shortness of breath. She is typically on 6 L nasal cannula but presented to the ER on 3 L.? Her family reported that she has been sleeping in her recliner since Thursday.? They voiced concerns regarding potential for fluid overloaded and recurrent pneumonia.?Related Data? BiPAP was initiated readily upon presentation with pressure support of 10-10, 30% FIO2. O2 saturationed then improved to 95-98% and her work of breathing eased. Noted were: tachycardia, hypotension, tachypnea, O2 sat of 83 on 3 L nasal cannula.? IV solumedrol 125mg IV administered. Laboratory work showed a white blood cell count of 18.63, D-dimer 826.? ABG was ordered but respiratory unable to obtain; a VBG then obtained. ? Lactate of 9.9. sodium 130 potassium 5.7. anion gap 16 5. glucose 550. creatinine 1.7. GFR of 29.22. calcium 8.4. troponin 75.? BNP at 13,037.? Procalcitonin of 0.3. UA with moderate blood, 10-20 RBCs, glucose >1000. She was better able to communicate and she denied CP. No F/C, abd pain, N/V. CTA chest: moderate right pleural effusion and severe emphysema but negative for PE or infiltrate. An insulin drip was initiated and she was admitted to the ICU. Review of Systems All systems reviewed & are unremarkable except as noted in HPI and below PFSH All Active Problems Acute respiratory distress (Acute) DKA (diabetic ketoacidosis) (Acute) Elevated troponin (Acute) Dehydration (Acute) Acute on chronic, with presumed affect on ADL. Considering gentle hydration to help with ADL, but close monitoring required due to high risk of fluid overload 2' HF. Abnormal PET scan of lung (Acute) (+) lung nodules, serosal implants, possible pancreatic mass 07/19/21. 2mo review by [facility] oncology to decide on chemo for possible metastatic condition. Mild cognitive impairment (Acute) Memory changes (Acute) Acute, possibly 2' steroids .. but she and family have noticed changes x months .. [ ] Neuro Pulmonary nodule (Acute) Mobility impaired (Acute) Due to SOB, Ox Dependence, Deconditioning (incl muscle loss) .. ADL are becomin glimited which is terrible for her .. she needs to return to work, errands, etc .. CAD (coronary artery disease) (Chronic) ASA Class IV per Cardio notes .. mild diffuse stenosis per [employer], 02/2021 (no stenting).. Hx of fluid overload (Acute) Each hospitalization has notable fluid, with use of diuretics. No LE Edema! Hospitalization or health care facility admission within last 6 months (Acute) 02/2021 ([facility]?).. 03/2021 (2D ICU [facility]), then 6D [facility], d/c 04/15, reviewing in [facility], 03/17/21... COPD (chronic obstructive pulmonary disease) (Chronic) Non-ST elevation myocardial infarction (NSTEMI) in recovery phase (Acute) Adenocarcinoma, appendix (Acute ~02/2021) Per [facility] Hem Onc note from 03/13/21 Chronic respiratory failure with hypoxia (Acute) Met w/ [facility] Pul, XXX .... Hx [facility] Pulm Cough with hemoptysis (Acute) Wedge compression fracture of first lumbar vertebra, sequela (Acute) Age-related osteoporosis with current pathological fracture, unspecified site, sequela (Acute) Myalgia (Acute) 06/12/20 [facility] Rheum Edema leg (Acute) Arteriovenous malformation (Acute 11/16/19) recommend pulmonary angiography and embolization Ray Minor MD Tinea unguium (Acute) 11/08/19 Dr Young Pulmonary hypertension, unspecified (Chronic 10/11/19) [facility], Marco A Howard 08/22/20 Echo at [facility] Hypoxia (Acute 09/06/19) Chronic anticoagulation (Acute) Supplemental oxygen dependent (Acute) Oxygen desaturation (Acute) Serious desaturations occurring with little exertion. Recomm oxygen with exertion as well as overnight, 07/2019. Chronic obstructive pulmonary disease with (acute) exacerbation (Acute) 07/20/19-[facility] Hem Onc progress note.Dr. Smith (Hospitalized @ [facility], 07/04- 07/07/19). [ ] APpt with [facility] Pulm (per Luis's referral). 09/06/19 [facility] Pulm - COPD Gold Stage 1 Category B 09/06/19 Echo at [facility] PAD (peripheral artery disease) (Chronic) 10/2019, [facility]. 06/17/19 [facility] Vascular, s/p fem-fem+. Numbness in right leg (Acute) Diverticulitis (Chronic) Diarrhea (Acute) Improved, 05/02/21! Seems increased since chemo, but possibly due to Metformin and/or Januvia? 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 s/p surgery; chemotherapy starting 12/10/18. Elevated CEA Thrombosis (Acute) s/p fem-fem bypass graft; on eliquis Emphysema lung (Chronic) Elevated white blood cell count (Acute) Hypoglycemia (Acute) Bilateral hearing loss (Chronic) Joint disorder (Chronic) Mixed hyperlipidemia (Chronic) Hypothyroidism (Chronic) Essential hypertension (Chronic) Good BP, 10/2018. Acceptable BP off lisinopril, risk of dizziness and low BP higher than elevated BP, so monitor w/o ACEi at the moment. As health improves, hope to re-start ACEi for renal-protection as much as BP control. 12/09/18. Type II diabetes mellitus (Chronic) Medical History Cataract Positive MECCA (antinuclear antibody) 06/12/20 [facility] Rheum Surgical History History of fasciotomy thrombosis while in OR for appendectomy requiring thrombectomy and fasciotomy to rle. 10/07/18 [facility] History of left cataract surgery (~12/02/16) History of right cataract surgery (~2005) Family History Daughter Anemia Diabetes Hypertension Father COPD (chronic obstructive pulmonary disease) Son Diabetes Heart disease Mother CAD (coronary artery disease) Social History Smoking/Tobacco Use Status: Never Smoking risk assessment performed?: Yes Alcohol Intake: never Drug use: Never Substance use type: does not use current occupation: [employer] Do you feel safe at home: Yes Do you feel safe in your relationship?: Yes Meds Allergies and Home Medications Allergies Allergy/AdvReac Type Severity Reaction Status Date / Time Penicillins Allergy Unknown Verified 08/13/21 14:14 Influenza Virus Vaccines AdvReac Mild cellulitis Verified 07/10/21 08:49 Home Medications Medication Instructions Recorded Confirmed Type acetaminophen 325 mg tablet 650 mg PO BID PRN tab 11/26/18 08/15/21 History loperamide-simethicone 2 mg-125 mg 1 tab PO Q3H PRN 06/16/19 08/15/21 History tablet Oxygen Titration #1 ea 09/02/19 08/13/21 Rx melatonin 5 mg tablet 10 mg PO HS tab 06/01/20 08/15/21 History Oxygen #1 each 06/14/20 08/13/21 Rx cholecalciferol (vitamin D3) 125 125 mcg PO DAILY 09/05/20 08/15/21 History mcg (5,000 unit) tablet metoprolol succinate 25 mg 25 mg PO DAILY 03/18/21 08/15/21 History tablet,extended release 24 hr nitroglycerin 0.4 mg sublingual 0.4 mg SUBLINGUAL Q5M PRN 03/18/21 08/15/21 History tablet (Nitrostat) levothyroxine 100 mcg tablet 100 mcg PO DAILY #90 tab 03/19/21 08/15/21 Rx metformin 500 mg tablet 500 mg PO BID #180 tab 03/19/21 08/15/21 Rx potassium chloride 20 mEq 20 meq PO DAILY #90 tab 03/19/21 08/15/21 Rx tablet,extended release levalbuterol tartrate 45 2 inh INHALATION Q6H #15 g 03/22/21 08/15/21 Rx mcg/actuation aerosol inhaler (Xopenex HFA) furosemide 20 mg tablet 20 mg PO DAILY #30 tab 04/16/21 08/15/21 Rx apixaban 2.5 mg tablet (Eliquis) 2.5 mg PO BID #180 tab 04/19/21 08/15/21 Rx Wheelchair #1 ea 04/25/21 08/13/21 Rx lancets (Accu-Chek Softclix #100 ea 04/25/21 08/13/21 Rx Lancets) lancing device with lancets kit #1 ea 04/25/21 08/13/21 Rx (Accu-Chek Soft Dev Lancets) pen needle, diabetic 31 gauge x #100 ea 05/02/21 08/13/21 Rx 3/16 (BD Ultra-Fine Mini Pen Needle) blood sugar diagnostic #100 ea 05/09/21 08/13/21 Rx blood-glucose meter #1 ea 05/09/21 08/13/21 Rx tiotropium 2.5 mcg-olodaterol 2.5 2 puff INHALATION DAILY #4 g 06/04/21 08/15/21 Rx mcg/actuation mist for inhalation (Stiolto Respimat) ipratropium 0.5 mg-albuterol 3 mg 3 ml INHALATION .COMPLEX #540 ml 07/06/21 08/15/21 Rx (2.5 mg base)/3 mL nebulization soln lorazepam 0.5 mg tablet 0.5 mg PO ONCE PRN #2 tab 07/24/21 08/15/21 Rx amlodipine 2.5 mg tablet See Rx Instructions .ROUTE 08/10/21 08/15/21 Rx .COMPLEX #90 tab empagliflozin 10 mg tablet See Rx Instructions .ROUTE 08/10/21 08/15/21 Rx (Jardiance) .COMPLEX #90 tab morphine 10 mg/5 mL oral solution 2 mg PO Q4H PRN #100 ml MDD 10mg 08/13/21 08/15/21 Rx insulin glargine 100 unit/mL (3 24 unit SUBCUT DAILY ml 08/14/21 08/15/21 History mL) subcutaneous pen (Basaglar KwikPen U-100 Insulin) prednisone 10 mg tablet 10 mg PO DAILY #30 tab 08/14/21 08/15/21 Rx prednisone 20 mg tablet 20 mg PO DAILY #30 tab 08/14/21 08/14/21 Rx Exam Narrative Exam Narrative: Lying in bed in the ICU Now on 6L supplemental O2 per [place] Const General: cooperative, no acute distress and ill appearing Nutritional Appearance: overweight Orientation: alert, oriented to person and oriented to place [facility] Mouth: mucous membranes dry Eyes General: appearance normal, both eyes and all related structures Sclera: sclerae normal Resp Effort & Inspection: able to speak in complete sentences Auscultation: clear to auscultation bilaterally and diminished lung sounds Cardio Rate: tachycardic (90's) Rhythm: regular rhythm GI Inspection: non-distended Palpation: soft and nontender Auscultation: normal bowel sounds Skin General skin exam: no rashes or lesions noted Neuro General: moves all extremities and no focal motor deficits Cranial Nerves: facial strength normal Speech: speech normal Extrem General: no calf tenderness and edema Laterality: bilateral (nonpitting) Psych Appearance: grossly normal Speech and Movement: speech clear Affect: normal affect Results Labs Result diagrams: 08/15/21 15:50 08/16/21 01:00 Labs: Laboratory Results - last 24 hr 08/15/21 08/15/21 08/15/21 15:50 15:50 15:50 WBC RBC Hgb Hct MCV MCH MCHC RDW Plt Count MPV Immature Gran % Neutrophils % Lymphocytes % Monocytes % Eosinophils % Basophils % Nucleated RBC % Absolute Neutrophils Absolute Lymphocytes Absolute Monocytes Absolute Eosinophils Absolute Basophils RBC Morphology Polychromasia Hypochromasia Poikilocytosis Anisocytosis Microcytosis PT 11.0 INR 1.1 APTT 23.0 D-Dimer 826 H VBG Lactate Sodium 132 L Potassium 5.7 H Chloride 99 Carbon Dioxide 16.5 L Anion Gap 16.5 H BUN 29 H Creatinine 1.7 H Estimated GFR/1.73 m2 29.22 Glucose 550 H* Calcium 8.4 L Magnesium 2.1 Total Bilirubin 0.4 AST 36 ALT 85 H Alkaline Phosphatase 62 Troponin I 56 NT-Pro-B Natriuret Pep 56557 H Total Protein 6.8 Albumin 3.3 L Procalcitonin Urine Color Urine Clarity Urine pH Ur Specific [place] Urine Protein Urine Ketones Urine Blood Urine Nitrite Urine Bilirubin Urine Urobilinogen Ur Leukocyte Esterase Urine RBC Urine WBC Ur Epithelial Cells Urine Crystals Urine Bacteria Urine Casts Urine Mucus Urine Other Ur Culture Indicated? Urine Glucose COVID-19 Source SARS-CoV-2 (PCR) Influenza Type A (PCR) Influenza Type B (PCR) RSV (PCR) 08/15/21 08/15/21 08/15/21 15:50 15:50 16:00 WBC 18.63 H RBC 5.32 H Hgb 11.6 Hct 42.2 MCV 79.3 L MCH 21.8 L MCHC 27.5 L RDW 18.3 H Plt Count 434 H MPV 10.6 Immature Gran % 1.1 Neutrophils % 93.4 Lymphocytes % 3.2 Monocytes % 2.1 Eosinophils % 0.0 Basophils % 0.2 Nucleated RBC % 0 Absolute Neutrophils 17.40 H Absolute Lymphocytes 0.60 L Absolute Monocytes 0.39 Absolute Eosinophils 0.00 Absolute Basophils 0.04 RBC Morphology See Below Polychromasia Present Hypochromasia 1+ Poikilocytosis 1+ Anisocytosis 1+ Microcytosis 1+ PT INR APTT D-Dimer VBG Lactate 9.9 H* Sodium Potassium Chloride Carbon Dioxide Anion Gap BUN Creatinine Estimated GFR/1.73 m2 Glucose Calcium Magnesium Total Bilirubin AST ALT Alkaline Phosphatase Troponin I NT-Pro-B Natriuret Pep Total Protein Albumin Procalcitonin 0.3 Urine Color Urine Clarity Urine pH Ur Specific [place] Urine Protein Urine Ketones Urine Blood Urine Nitrite Urine Bilirubin Urine Urobilinogen Ur Leukocyte Esterase Urine RBC Urine WBC Ur Epithelial Cells Urine Crystals Urine Bacteria Urine Casts Urine Mucus Urine Other Ur Culture Indicated? Urine Glucose COVID-19 Source Nasopharynx SARS-CoV-2 (PCR) Negative Influenza Type A (PCR) Negative Influenza Type B (PCR) Negative RSV (PCR) Negative 08/15/21 08/15/21 08/15/21 18:40 19:25 21:15 WBC RBC Hgb Hct MCV MCH MCHC RDW Plt Count MPV Immature Gran % Neutrophils % Lymphocytes % Monocytes % Eosinophils % Basophils % Nucleated RBC % Absolute Neutrophils Absolute Lymphocytes Absolute Monocytes Absolute Eosinophils Absolute Basophils RBC Morphology Polychromasia Hypochromasia Poikilocytosis Anisocytosis Microcytosis PT INR APTT D-Dimer VBG Lactate Sodium 137 Potassium 4.5 D Chloride 107 Carbon Dioxide 21.4 Anion Gap 8.6 BUN 22 H D Creatinine 1.0 D Estimated GFR/1.73 m2 53.91 Glucose 137 H D Calcium 7.5 L Magnesium Total Bilirubin AST ALT Alkaline Phosphatase Troponin I 75 H* NT-Pro-B Natriuret Pep Total Protein Albumin Procalcitonin Urine Color Yellow Urine Clarity Clear Urine pH 5.5 Ur Specific [place] 1.015 Urine Protein Negative Urine Ketones Negative Urine Blood Moderate H Urine Nitrite Negative Urine Bilirubin Negative Urine Urobilinogen 0.2 Ur Leukocyte Esterase Negative Urine RBC 10-20 H Urine WBC 0-2 Ur Epithelial Cells Few Urine Crystals Negative Urine Bacteria Negative Urine Casts Negative Urine Mucus Negative Urine Other Negative Ur Culture Indicated? No Urine Glucose >=1000 H COVID-19 Source SARS-CoV-2 (PCR) Influenza Type A (PCR) Influenza Type B (PCR) RSV (PCR) 08/16/21 08/16/21 01:00 01:00 WBC RBC Hgb Hct MCV MCH MCHC RDW Plt Count MPV Immature Gran % Neutrophils % Lymphocytes % Monocytes % Eosinophils % Basophils % Nucleated RBC % Absolute Neutrophils Absolute Lymphocytes Absolute Monocytes Absolute Eosinophils Absolute Basophils RBC Morphology Polychromasia Hypochromasia Poikilocytosis Anisocytosis Microcytosis PT INR APTT D-Dimer VBG Lactate 2.1 H Sodium 137 Potassium 4.4 Chloride 107 Carbon Dioxide 21.1 Anion Gap 8.9 BUN 22 H Creatinine 1.0 Estimated GFR/1.73 m2 53.91 Glucose 116 H Calcium 7.5 L Magnesium Total Bilirubin AST ALT Alkaline Phosphatase Troponin I NT-Pro-B Natriuret Pep Total Protein Albumin Procalcitonin Urine Color Urine Clarity Urine pH Ur Specific [place] Urine Protein Urine Ketones Urine Blood Urine Nitrite Urine Bilirubin Urine Urobilinogen Ur Leukocyte Esterase Urine RBC Urine WBC Ur Epithelial Cells Urine Crystals Urine Bacteria Urine Casts Urine Mucus Urine Other Ur Culture Indicated? Urine Glucose COVID-19 Source SARS-CoV-2 (PCR) Influenza Type A (PCR) Influenza Type B (PCR) RSV (PCR) Last Vital Signs Temp 36.5 C 08/16/21 03:05 Pulse 85 08/16/21 05:00 Resp 23 08/16/21 05:00 BP 107/59 L 08/16/21 05:00 Pulse Ox 86 L 08/16/21 05:00
[2021-08-16] MEDS: Levothyroxine 100 MCG TAB PO (06:19)
[2021-08-16] MEDS: Normal Saline Flush 10 ML SYR IVP ×5 (06:20→21:05)
[2021-08-16 07:04] LABS: Absolute Basophil Count 0.02 10^3/uL (0.0-0.2); Absolute Neutrophil Count 15.95 10^3/uL (1.2-6.7); Basophils % 0.1; HCT 35.6 % (36.0-46.0); Immature Grans % 1.1; Lymphocytes % 4.3; MCH 21.8 pg (27.0-33.0); MCHC 28.1 % (32.0-36.0); MCV 77.6 fL (80-95); MPV 10.1 fL (8.0-11.0); Neutrophils % 90.5; Nucleated RBC 0 %; Platelet Count 308 10^3/uL (130-400); RBC 4.59 10^6/uL (3.93-5.22); RDW 17.9 % (11.7-14.6); RDW-SD 50.3 fL; WBC 17.62 10^3/uL (4.4-10.8)
[2021-08-16 07:10] LABS: Absolute Lymphocyte Count 0.76 10^3/uL (1.2-3.4)
--- NOTE | 2021-08-16 07:16 | NUR.NOTE ---
trace bilateral orbital edema noted this morning. Nursing Note:
[2021-08-16 07:20] LABS: BUN 19 mg/dL (7-18); Calcium 7.6 mg/dL (8.5-10.1); Chloride 107 mmol/L (98-107); Estimated GFR 53.91 (mL/min/1.73m2); Glucose 104 mg/dL (74-106); Potassium 4.6 mmol/L (3.5-5.1); Sodium 140 mmol/L (136-145)
[2021-08-16 07:38] LABS: Troponin I 96 ng/L (<or=60)
[2021-08-16 07:39] LABS: Hemoglobin A1C 9.6 % (<5.7)
[2021-08-16] MEDS: Albuterol/Ipratropium 3 ML UPD VIAL UPD ×3 (07:48→21:03)
[2021-08-16] MEDS: Tiotropium/Olodaterol 10 PUFF INHALER 2 PUFF IH (07:57)
--- NOTE | 2021-08-16 08:51 | PUCC_ITS ---
General Date of Service Date of service: 08/16/21 Time of Service: 08:15 Reason for Admission to ICU: Respiratory failure Assessment and Plan Assessment and plan (1) Acute and chronic respiratory failure with hypoxia: Status: Acute (2) Acute on chronic right-sided congestive heart failure: Status: Acute (3) Pneumonia: Status: Acute (4) Elevated troponin: Status: Acute (5) Abnormal PET scan of lung: Status: Acute (6) Mild cognitive impairment: Status: Acute (7) COPD (chronic obstructive pulmonary disease): Status: Chronic (8) Pulmonary hypertension, unspecified: Status: Chronic (9) Type II diabetes mellitus: Status: Chronic (10) DKA (diabetic ketoacidosis): Status: Resolved (11) Lactic acidosis: Status: Acute (12) JCAKLYN (acute kidney injury): Status: Acute Assessment and plan: This is a 76 yo female with a complex medical history including diabetes, pulmonary hypertension and right heart failure who is admitted to the ICU for acute on chronic hypoxic respiratory failure. 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 She has some anxiety issues which we will treat, particularly to tolerate some CPAP. She is stable on HFNC when we can get her RR down with Ativan/morphine. Her DKA is resolved and we are now working on diuresing her to help her respiratory status. She will be covered for HAP given her recent hospital stay at [facility]. She is currently on 20mg prednisone, but will work on decreasing this as well to help with both her diabetes and fluid retention. Recommendations Pulmonary: Acute on chronic hypoxic respiratory failure - HFNC and CPAP as needed for sats >88% - consider CPAP at night while sleeping - diuresis as below - Incentive spirometry when able COPD - not in exacerbation currently - continue home Stiolto and prn albuterol - Duonebs prn - Taper prednisone: 20mg for 4 days, 10mg for 4 days, 5mg for 4 days Cardiac: RV Failure - recommend diuresis for 1-2 L negative in 24 hours period - trops are down trending, no need to continue trending - elevated BNP - D/C all IVF s/p fem-fem bypass - continue Eliquis h/o HTN - continue home BP meds Renal: JACKLYN, resolving - strict I/O's I&O: Intake & Output 08/13/21 08/14/21 08/15/21 08/16/21 23:59 23:59 23:59 23:59 Intake Total 1081.733 / 1082.133 614.858 / 614.858 Output Total 500 / 500 650 / 650 Balance 581.733 / 582.133 -35.142 / -35.142 Weight 48.4 kg 48.6 kg Daily Fluid Goal:: Negative 1-2 L in 24 hours GI Nutrition: OK for diet Date of Last Bowel Movement: 08/15/21 Infectious Disease: Pneumonia, concern for HAP - on cefepime - f/u blood cultures Hematologic: No acute concerns - on Eliquis Neurologic: No acute concerns Endocrine: DKA - resolved - continue home Lantus and sliding scale Lines: PIV Prophylaxis: on Eliquis no PPI ppx indicated currently Code Status: Resuscitation Status DNR/DNI Subjective Critical and life-threatening events over the past 24 hours: This is a 76 yo female who has a complex medical history including group 2 and 3 pulmonary hypertension, COPD, history of appendiceal cancer (in remission) but now with newly PET avid pulmonary nodules, diabetes and chronic respiratory failure. She was admitted to the ICU for acute on chronic respiratory failure. She did require BiPAP and so was admitted to the ICU. This morning she was on CPAP and was having trouble with the mask. She was switched to HFNC to facilitate eating as her DKA had resolved overnight and she experienced a significant desaturation event requiring her to be placed back onto CPAP. On my second evaluation of her I put her back onto HFNC and after she received a dose of Ativan her sats and respiratory rate improved significantly. She did have a CT chest in the Ed that was negative for PE but did find a right pleural effusion as well as evidence of volume overload. She tells me she is very short of breath and feels miserable. Exam Narrative Exam Narrative: Bedside POCUS 08/16/21: All 4 cardiac views seen will good windows LV appears to be underfilled and almost hyperdynamic. The IVC is of normal size and collapses >50% with inspiration. There are B-lines bilaterally. The RV is dilated and and significantly reduced function. The RA is enlarged as well. Const General: cooperative Nutritional Appearance: average body habitus HENHI Head: normal to inspection Mouth: oral mucosae normal Eyes Pupils: PERRL Neck Neck: normal visual inspection Resp Effort & Inspection: respiratory distress Auscultation: rales and no wheezes Cardio Rate: regular rate Rhythm: regular rhythm GI Inspection: normal to inspection Skin General skin exam: no rashes or lesions noted Neuro General: patient alert and patient awake Extrem General: normal to inspection Psych Mental Status: mental status grossly normal Most Recent VS/Results Last Vital Signs Temp 36.5 C 08/16/21 03:05 Pulse 95 H 08/16/21 07:48 Resp 18 08/16/21 07:48 BP 107/59 L 08/16/21 05:00 Pulse Ox 95 08/16/21 07:48 Laboratory Results - last 24 hr 08/15/21 08/15/21 08/15/21 15:50 15:50 15:50 WBC RBC Hgb Hct MCV MCH MCHC RDW Plt Count MPV Immature Gran % Neutrophils % Lymphocytes % Monocytes % Eosinophils % Basophils % Nucleated RBC % Absolute Neutrophils Absolute Lymphocytes Absolute Monocytes Absolute Eosinophils Absolute Basophils RBC Morphology Polychromasia Hypochromasia Poikilocytosis Anisocytosis Microcytosis PT 11.0 INR 1.1 APTT 23.0 D-Dimer 826 H VBG Lactate Sodium 132 L Potassium 5.7 H Chloride 99 Carbon Dioxide 16.5 L Anion Gap 16.5 H BUN 29 H Creatinine 1.7 H Estimated GFR/1.73 m2 29.22 Glucose 550 H* Hemoglobin A1c Calcium 8.4 L Magnesium 2.1 Total Bilirubin 0.4 AST 36 ALT 85 H Alkaline Phosphatase 62 Troponin I 56 NT-Pro-B Natriuret Pep 13821 H Total Protein 6.8 Albumin 3.3 L Procalcitonin Urine Color Urine Clarity Urine pH Ur Specific [place] Urine Protein Urine Ketones Urine Blood Urine Nitrite Urine Bilirubin Urine Urobilinogen Ur Leukocyte Esterase Urine RBC Urine WBC Ur Epithelial Cells Urine Crystals Urine Bacteria Urine Casts Urine Mucus Urine Other Ur Culture Indicated? Urine Glucose COVID-19 Source SARS-CoV-2 (PCR) Influenza Type A (PCR) Influenza Type B (PCR) RSV (PCR) 08/15/21 08/15/21 08/15/21 15:50 15:50 16:00 WBC 18.63 H RBC 5.32 H Hgb 11.6 Hct 42.2 MCV 79.3 L MCH 21.8 L MCHC 27.5 L RDW 18.3 H Plt Count 434 H MPV 10.6 Immature Gran % 1.1 Neutrophils % 93.4 Lymphocytes % 3.2 Monocytes % 2.1 Eosinophils % 0.0 Basophils % 0.2 Nucleated RBC % 0 Absolute Neutrophils 17.40 H Absolute Lymphocytes 0.60 L Absolute Monocytes 0.39 Absolute Eosinophils 0.00 Absolute Basophils 0.04 RBC Morphology See Below Polychromasia Present Hypochromasia 1+ Poikilocytosis 1+ Anisocytosis 1+ Microcytosis 1+ PT INR APTT D-Dimer VBG Lactate 9.9 H* Sodium Potassium Chloride Carbon Dioxide Anion Gap BUN Creatinine Estimated GFR/1.73 m2 Glucose Hemoglobin A1c Calcium Magnesium Total Bilirubin AST ALT Alkaline Phosphatase Troponin I NT-Pro-B Natriuret Pep Total Protein Albumin Procalcitonin 0.3 Urine Color Urine Clarity Urine pH Ur Specific [place] Urine Protein Urine Ketones Urine Blood Urine Nitrite Urine Bilirubin Urine Urobilinogen Ur Leukocyte Esterase Urine RBC Urine WBC Ur Epithelial Cells Urine Crystals Urine Bacteria Urine Casts Urine Mucus Urine Other Ur Culture Indicated? Urine Glucose COVID-19 Source Nasopharynx SARS-CoV-2 (PCR) Negative Influenza Type A (PCR) Negative Influenza Type B (PCR) Negative RSV (PCR) Negative 08/15/21 08/15/21 08/15/21 18:40 19:25 21:15 WBC RBC Hgb Hct MCV MCH MCHC RDW Plt Count MPV Immature Gran % Neutrophils % Lymphocytes % Monocytes % Eosinophils % Basophils % Nucleated RBC % Absolute Neutrophils Absolute Lymphocytes Absolute Monocytes Absolute Eosinophils Absolute Basophils RBC Morphology Polychromasia Hypochromasia Poikilocytosis Anisocytosis Microcytosis PT INR APTT D-Dimer VBG Lactate Sodium 137 Potassium 4.5 D Chloride 107 Carbon Dioxide 21.4 Anion Gap 8.6 BUN 22 H D Creatinine 1.0 D Estimated GFR/1.73 m2 53.91 Glucose 137 H D Hemoglobin A1c Calcium 7.5 L Magnesium Total Bilirubin AST ALT Alkaline Phosphatase Troponin I 75 H* NT-Pro-B Natriuret Pep Total Protein Albumin Procalcitonin Urine Color Yellow Urine Clarity Clear Urine pH 5.5 Ur Specific [place] 1.015 Urine Protein Negative Urine Ketones Negative Urine Blood Moderate H Urine Nitrite Negative Urine Bilirubin Negative Urine Urobilinogen 0.2 Ur Leukocyte Esterase Negative Urine RBC 10-20 H Urine WBC 0-2 Ur Epithelial Cells Few Urine Crystals Negative Urine Bacteria Negative Urine Casts Negative Urine Mucus Negative Urine Other Negative Ur Culture Indicated? No Urine Glucose >=1000 H COVID-19 Source SARS-CoV-2 (PCR) Influenza Type A (PCR) Influenza Type B (PCR) RSV (PCR) 08/16/21 08/16/21 08/16/21 01:00 01:00 06:15 WBC RBC Hgb Hct MCV MCH MCHC RDW Plt Count MPV Immature Gran % Neutrophils % Lymphocytes % Monocytes % Eosinophils % Basophils % Nucleated RBC % Absolute Neutrophils Absolute Lymphocytes Absolute Monocytes Absolute Eosinophils Absolute Basophils RBC Morphology Polychromasia Hypochromasia Poikilocytosis Anisocytosis Microcytosis PT INR APTT D-Dimer VBG Lactate 2.1 H Sodium 137 140 Potassium 4.4 4.6 Chloride 107 107 Carbon Dioxide 21.1 23.0 Anion Gap 8.9 10.0 BUN 22 H 19 H Creatinine 1.0 1.0 Estimated GFR/1.73 m2 53.91 53.91 Glucose 116 H 104 Hemoglobin A1c Calcium 7.5 L 7.6 L Magnesium Total Bilirubin AST ALT Alkaline Phosphatase Troponin I 96 H* NT-Pro-B Natriuret Pep Total Protein Albumin Procalcitonin Urine Color Urine Clarity Urine pH Ur Specific [place] Urine Protein Urine Ketones Urine Blood Urine Nitrite Urine Bilirubin Urine Urobilinogen Ur Leukocyte Esterase Urine RBC Urine WBC Ur Epithelial Cells Urine Crystals Urine Bacteria Urine Casts Urine Mucus Urine Other Ur Culture Indicated? Urine Glucose COVID-19 Source SARS-CoV-2 (PCR) Influenza Type A (PCR) Influenza Type B (PCR) RSV (PCR) 08/16/21 08/16/21 06:15 06:15 WBC 17.62 H RBC 4.59 Hgb 10.0 L Hct 35.6 L MCV 77.6 L MCH 21.8 L MCHC 28.1 L RDW 17.9 H Plt Count 308 D MPV 10.1 Immature Gran % 1.1 Neutrophils % 90.5 Lymphocytes % 4.3 Monocytes % 4.0 Eosinophils % 0.0 Basophils % 0.1 Nucleated RBC % 0 Absolute Neutrophils 15.95 H Absolute Lymphocytes 0.76 L Absolute Monocytes 0.70 Absolute Eosinophils 0.00 Absolute Basophils 0.02 RBC Morphology Polychromasia Hypochromasia Poikilocytosis Anisocytosis Microcytosis PT INR APTT D-Dimer VBG Lactate Sodium Potassium Chloride Carbon Dioxide Anion Gap BUN Creatinine Estimated GFR/1.73 m2 Glucose Hemoglobin A1c 9.6 H Calcium Magnesium Total Bilirubin AST ALT Alkaline Phosphatase Troponin I NT-Pro-B Natriuret Pep Total Protein Albumin Procalcitonin Urine Color Urine Clarity Urine pH Ur Specific [place] Urine Protein Urine Ketones Urine Blood Urine Nitrite Urine Bilirubin Urine Urobilinogen Ur Leukocyte Esterase Urine RBC Urine WBC Ur Epithelial Cells Urine Crystals Urine Bacteria Urine Casts Urine Mucus Urine Other Ur Culture Indicated? Urine Glucose COVID-19 Source SARS-CoV-2 (PCR) Influenza Type A (PCR) Influenza Type B (PCR) RSV (PCR) Review of Systems All systems reviewed & are unremarkable except as noted in HPI and below Time spent with patient Time spent in Critical Care: 60 Time spent in Critical care included: Coordination of care, Chart review, Documenting critically ill care, Time at immediate bedside and Discussing critically ill care with other medical staff
[2021-08-16] MEDS: Furosemide 40 MG/4 ML VIAL IVP ×2 (08:54→17:09)
[2021-08-16] MEDS: Metoprolol CR 25 MG TABCR PO (08:55)
[2021-08-16] MEDS: predniSONE 20 MG TAB PO (08:55)
[2021-08-16] MEDS: CEFEPIME 2 GM in Normal Saline 100 ML IVPB ×2 (09:25→17:09)
[2021-08-16] MEDS: LORazepam 2 MG/ML VIAL 0.5 MG IVP ×2 (11:11→21:05)
--- NOTE | 2021-08-16 11:31 | W.PM.PROGNOT ---
Date of Service Date of service: 08/16/21 Time of Service: 11:31 Assessment and Plan Assessment and plan (1) Acute and chronic respiratory failure with hypoxia: Status: Acute Assessment and plan: Multifactorial, due to acute on chronic R-sided CHF, pleural effusion, possible COPD exacerbation, possible underlying pneumonia. Treat all of the above - diurese, steroids, empiric cefepime. (2) Acute on chronic right-sided congestive heart failure: Status: Acute Assessment and plan: Continue diuresis and attempt CPAP with anxiolytics/morphine, if patient tolerates. Keep in ICU. I am verifying with our pharmacy if there is a possibility of the patient getting flolan delivered to our facility. Monitor O2 sats. Obtain echo. Monitor I/O's, daily weights. (3) DKA (diabetic ketoacidosis): Status: Resolved Assessment and plan: Resumed on basal bolus insulin. Will monitor for recurrence. (4) Elevated troponin: Status: Acute Assessment and plan: Suspected demand ischemia in setting of fluid overload, worsening hypoxic respiratory failure. Repeat troponin, but do not anticipate ischemic workup. Obtain formal echo (unavailable until 08/19/21). (5) COPD (chronic obstructive pulmonary disease): Status: Chronic Assessment and plan: In possible very mild acute exacerbation. Continue prednisone 20 mg. Abx. Scheduled and prn nebs. (6) Pulmonary hypertension, unspecified: Status: Chronic Assessment and plan: As above (7) Pneumonia: Status: Acute Assessment and plan: As above - empiric cefepime (8) DVT prophylaxis: Status: Acute Assessment and plan: On apixaban (9) Discharge planning issues: Status: Acute Assessment and plan: DNR/DNI Keep in ICU. Palliative care consulted. Discussed with Dr Dubon. Total Critical Care Time 45 minutes. Subjective Subjective Interval history since last seen: Ms Yañez because tachypneic/very visibly short of breath after breakfast and was put on CPAP. She was anxious on CPAP @ PEEP of 10, FiO2 of 50%, so [facility]O2. Her bedside echo showed a hyperdynamic LV and a very dilated RV. Her CTA is negative for a PE. Initiated on cefepime this am. Denies dizziness, reported right sided chest discomofrt, which now resolved, denied n/v. Discussed with Dr Dubon - the patient would be a candidate for flolan inhaled, but we do not have it in house. It may be available to be ordered overnight - we are checking. At this point, the patient's BPs are borderlie and she would not tolerate nitroglycerin gtt. Will continue diuresis. Anxiety has been a big issue - morphine + ativan seem to be working. Exam Narrative Exam Narrative: General: Pleasant anxious elderly female who is visibly anxious on CPAP, looks better on humidified heated high flow NC, A&Ox3 HEENT: EOMI, MMM Heart: RRR, no m/r/g Lungs: wheezing on expiration B with diminished breath sounds at R base Abdomen: soft, nontender, nondistended Extremities: no edema BLEs Objective Last Vital Signs Temp 36.7 C 08/16/21 07:35 Pulse 102 H 08/16/21 10:00 Resp 23 08/16/21 10:00 BP 110/64 08/16/21 10:00 Pulse Ox 92 08/16/21 10:00 Laboratory Results - last 24 hr 08/15/21 08/15/21 08/15/21 15:50 15:50 15:50 WBC RBC Hgb Hct MCV MCH MCHC RDW Plt Count MPV Immature Gran % Neutrophils % Lymphocytes % Monocytes % Eosinophils % Basophils % Nucleated RBC % Absolute Neutrophils Absolute Lymphocytes Absolute Monocytes Absolute Eosinophils Absolute Basophils RBC Morphology Polychromasia Hypochromasia Poikilocytosis Anisocytosis Microcytosis PT 11.0 INR 1.1 APTT 23.0 D-Dimer 826 H VBG Lactate Sodium 132 L Potassium 5.7 H Chloride 99 Carbon Dioxide 16.5 L Anion Gap 16.5 H BUN 29 H Creatinine 1.7 H Estimated GFR/1.73 m2 29.22 Glucose 550 H* Hemoglobin A1c Calcium 8.4 L Magnesium 2.1 Total Bilirubin 0.4 AST 36 ALT 85 H Alkaline Phosphatase 62 Troponin I 56 NT-Pro-B Natriuret Pep 52051 H Total Protein 6.8 Albumin 3.3 L Procalcitonin Urine Color Urine Clarity Urine pH Ur Specific [place] Urine Protein Urine Ketones Urine Blood Urine Nitrite Urine Bilirubin Urine Urobilinogen Ur Leukocyte Esterase Urine RBC Urine WBC Ur Epithelial Cells Urine Crystals Urine Bacteria Urine Casts Urine Mucus Urine Other Ur Culture Indicated? Urine Glucose COVID-19 Source SARS-CoV-2 (PCR) Influenza Type A (PCR) Influenza Type B (PCR) RSV (PCR) 08/15/21 08/15/21 08/15/21 15:50 15:50 16:00 WBC 18.63 H RBC 5.32 H Hgb 11.6 Hct 42.2 MCV 79.3 L MCH 21.8 L MCHC 27.5 L RDW 18.3 H Plt Count 434 H MPV 10.6 Immature Gran % 1.1 Neutrophils % 93.4 Lymphocytes % 3.2 Monocytes % 2.1 Eosinophils % 0.0 Basophils % 0.2 Nucleated RBC % 0 Absolute Neutrophils 17.40 H Absolute Lymphocytes 0.60 L Absolute Monocytes 0.39 Absolute Eosinophils 0.00 Absolute Basophils 0.04 RBC Morphology See Below Polychromasia Present Hypochromasia 1+ Poikilocytosis 1+ Anisocytosis 1+ Microcytosis 1+ PT INR APTT D-Dimer VBG Lactate 9.9 H* Sodium Potassium Chloride Carbon Dioxide Anion Gap BUN Creatinine Estimated GFR/1.73 m2 Glucose Hemoglobin A1c Calcium Magnesium Total Bilirubin AST ALT Alkaline Phosphatase Troponin I NT-Pro-B Natriuret Pep Total Protein Albumin Procalcitonin 0.3 Urine Color Urine Clarity Urine pH Ur Specific [place] Urine Protein Urine Ketones Urine Blood Urine Nitrite Urine Bilirubin Urine Urobilinogen Ur Leukocyte Esterase Urine RBC Urine WBC Ur Epithelial Cells Urine Crystals Urine Bacteria Urine Casts Urine Mucus Urine Other Ur Culture Indicated? Urine Glucose COVID-19 Source Nasopharynx SARS-CoV-2 (PCR) Negative Influenza Type A (PCR) Negative Influenza Type B (PCR) Negative RSV (PCR) Negative 08/15/21 08/15/21 08/15/21 18:40 19:25 21:15 WBC RBC Hgb Hct MCV MCH MCHC RDW Plt Count MPV Immature Gran % Neutrophils % Lymphocytes % Monocytes % Eosinophils % Basophils % Nucleated RBC % Absolute Neutrophils Absolute Lymphocytes Absolute Monocytes Absolute Eosinophils Absolute Basophils RBC Morphology Polychromasia Hypochromasia Poikilocytosis Anisocytosis Microcytosis PT INR APTT D-Dimer VBG Lactate Sodium 137 Potassium 4.5 D Chloride 107 Carbon Dioxide 21.4 Anion Gap 8.6 BUN 22 H D Creatinine 1.0 D Estimated GFR/1.73 m2 53.91 Glucose 137 H D Hemoglobin A1c Calcium 7.5 L Magnesium Total Bilirubin AST ALT Alkaline Phosphatase Troponin I 75 H* NT-Pro-B Natriuret Pep Total Protein Albumin Procalcitonin Urine Color Yellow Urine Clarity Clear Urine pH 5.5 Ur Specific [place] 1.015 Urine Protein Negative Urine Ketones Negative Urine Blood Moderate H Urine Nitrite Negative Urine Bilirubin Negative Urine Urobilinogen 0.2 Ur Leukocyte Esterase Negative Urine RBC 10-20 H Urine WBC 0-2 Ur Epithelial Cells Few Urine Crystals Negative Urine Bacteria Negative Urine Casts Negative Urine Mucus Negative Urine Other Negative Ur Culture Indicated? No Urine Glucose >=1000 H COVID-19 Source SARS-CoV-2 (PCR) Influenza Type A (PCR) Influenza Type B (PCR) RSV (PCR) 08/16/21 08/16/21 08/16/21 01:00 01:00 06:15 WBC RBC Hgb Hct MCV MCH MCHC RDW Plt Count MPV Immature Gran % Neutrophils % Lymphocytes % Monocytes % Eosinophils % Basophils % Nucleated RBC % Absolute Neutrophils Absolute Lymphocytes Absolute Monocytes Absolute Eosinophils Absolute Basophils RBC Morphology Polychromasia Hypochromasia Poikilocytosis Anisocytosis Microcytosis PT INR APTT D-Dimer VBG Lactate 2.1 H Sodium 137 140 Potassium 4.4 4.6 Chloride 107 107 Carbon Dioxide 21.1 23.0 Anion Gap 8.9 10.0 BUN 22 H 19 H Creatinine 1.0 1.0 Estimated GFR/1.73 m2 53.91 53.91 Glucose 116 H 104 Hemoglobin A1c Calcium 7.5 L 7.6 L Magnesium Total Bilirubin AST ALT Alkaline Phosphatase Troponin I 96 H* NT-Pro-B Natriuret Pep Total Protein Albumin Procalcitonin Urine Color Urine Clarity Urine pH Ur Specific [place] Urine Protein Urine Ketones Urine Blood Urine Nitrite Urine Bilirubin Urine Urobilinogen Ur Leukocyte Esterase Urine RBC Urine WBC Ur Epithelial Cells Urine Crystals Urine Bacteria Urine Casts Urine Mucus Urine Other Ur Culture Indicated? Urine Glucose COVID-19 Source SARS-CoV-2 (PCR) Influenza Type A (PCR) Influenza Type B (PCR) RSV (PCR) 08/16/21 08/16/21 06:15 06:15 WBC 17.62 H RBC 4.59 Hgb 10.0 L Hct 35.6 L MCV 77.6 L MCH 21.8 L MCHC 28.1 L RDW 17.9 H Plt Count 308 D MPV 10.1 Immature Gran % 1.1 Neutrophils % 90.5 Lymphocytes % 4.3 Monocytes % 4.0 Eosinophils % 0.0 Basophils % 0.1 Nucleated RBC % 0 Absolute Neutrophils 15.95 H Absolute Lymphocytes 0.76 L Absolute Monocytes 0.70 Absolute Eosinophils 0.00 Absolute Basophils 0.02 RBC Morphology Polychromasia Hypochromasia Poikilocytosis Anisocytosis Microcytosis PT INR APTT D-Dimer VBG Lactate Sodium Potassium Chloride Carbon Dioxide Anion Gap BUN Creatinine Estimated GFR/1.73 m2 Glucose Hemoglobin A1c 9.6 H Calcium Magnesium Total Bilirubin AST ALT Alkaline Phosphatase Troponin I NT-Pro-B Natriuret Pep Total Protein Albumin Procalcitonin Urine Color Urine Clarity Urine pH Ur Specific [place] Urine Protein Urine Ketones Urine Blood Urine Nitrite Urine Bilirubin Urine Urobilinogen Ur Leukocyte Esterase Urine RBC Urine WBC Ur Epithelial Cells Urine Crystals Urine Bacteria Urine Casts Urine Mucus Urine Other Ur Culture Indicated? Urine Glucose COVID-19 Source SARS-CoV-2 (PCR) Influenza Type A (PCR) Influenza Type B (PCR) RSV (PCR) Objective Narrative Objective Narrative: CTA chest : 1. No evidence of pulmonary embolism, thoracic aortic dissection or aneurysm. 2. Development of a new moderate left pleural effusion. 3. Right basilar infiltrate which may represent atelectasis or pneumonia. 4. Persistent pleural nodular thickening in the right hemithorax.
[2021-08-16] MEDS: Cholecalciferol (Vitamin D3) 1,000 UNIT TAB 5000 UNITS PO (11:45)
[2021-08-16] MEDS: amLODIPine 2.5 MG TAB PO (11:47)
[2021-08-16] MEDS: Apixaban 2.5 MG TAB PO ×2 (11:47→21:04)
[2021-08-16 12:28] LABS: Anion Gap 9.9 mmol/L (3-11); BUN 22 mg/dL (7-18); CO2 24.1 mmol/L (21.0-32.0); CREATININE 1.2 mg/dL (0.55-1.02); Calcium 7.9 mg/dL (8.5-10.1); Chloride 102 mmol/L (98-107); Estimated GFR 43.68 (mL/min/1.73m2); Glucose 193 mg/dL (74-106); PHOSPHORUS 3.9 mg/dL (2.6-4.7); Potassium 4.4 mmol/L (3.5-5.1); Sodium 136 mmol/L (136-145)
--- NOTE | 2021-08-16 12:31 | W.INDIABCONS ---
Date of service: 08/16/21 Time of Service: 12:31 Diabetes Inpatient Consult Reason for Visit: Inpatient Diabetes Consult DESCRIPTION/ASSESSMENT: Ms. Yañez presents with DKA. She has had some respiratory illness and has been on steroids. She also has a recent abnormal PET scan of her lung. Blood sugars here are approaching target. Most recent A1C was 9.6 on 08/16/21, however historically her A1C's were at goal around 7.5. Given that the previous 4 weeks are weighted more heavily in the A1C value, this significant increase may be related to her steroid use. At home, Ms. Yañez takes empagliflozin 10 mg, 24 units glargine, and metformin 500 mg bid. Here in the hospital she is getting aspart correction and 24 units of glargine. BMI is 20.9 kg/2 which is WNL however on the low end of normal for her age especially. Her weight however has been stable over the past two years. PO intake is good. INTERVENTION: Would continue with current nutrition and diabetes care plan. Consistent CHO and low sodium diet. Would consider sending her home on 28 units of glargine if she will have to remain on prednisone. PLAN: Will continue to monitor PO intake, blood sugars, weights. Will follow up with Ms. Yañez prior to discharge to see if she has any diabetes education needs. Time Spent in Nutritional Counseling and Treatment: 0
[2021-08-16 12:34] LABS: Troponin I 93 ng/L (<or=60)
[2021-08-16] MEDS: Insulin Aspart 300 UNITS/3 ML PEN SC ×3 (13:00→21:45)
--- NOTE | 2021-08-16 15:35 | PT.INIE ---
Date of service: 08/16/21 Time of Service: 15:35 PT Notes Visit Reasons: Diabetic Keto Acidosis,Respiratory failure Physical Therapy Inpatient Initial Evaluation Date: 08/16/2021 Referring Doctor: Stefanie Brown MD PT Orders: PT CONSULT: Limited ability Precautions: Fall. Standard. Activity as tolerated. Patient Profile/Admitting Diagnosis: Marlen is a 76-year-old female who presented to the ED on 08/15/2021 due to acute respiratory distress. Patient is diagnosed with acute respiratory distress, diabetic ketoacidosis, elevated troponin, mild cognitive impairment, coronary artery disease, and adenocarcinoma, pulmonary hypertension, and chronic respiratory failure with hypoxia. PMHX: All Active Problems? Acute respiratory distress (Acute) DKA (diabetic ketoacidosis) (Acute) Elevated troponin (Acute) Dehydration (Acute) Acute on chronic, with presumed affect on ADL. Considering gentle hydration to help with ADL, but close monitoring required due to high risk of fluid overload 2' HF.Abnormal PET scan of lung (Acute) (+) lung nodules, serosal implants, possible pancreatic mass 07/19/21.? 2mo review by [facility] oncology to decide on chemo for possible metastatic condition.Mild cognitive impairment (Acute) Memory changes (Acute) Acute, possibly 2' steroids .. but she and family have noticed changes x months .. NeuroPulmonary nodule (Acute) Mobility impaired (Acute) Due to SOB, Ox Dependence, Deconditioning (incl muscle loss) .. ADL are becomin glimited which is terrible for her .. she needs to return to work, errands, etc ..CAD (coronary artery disease) (Chronic) ASA Class IV per Cardio notes .. mild diffuse stenosis per MICROSTRATEGY ARCHITECT, 02/2021 (no stenting)..Hx of fluid overload (Acute) Each hospitalization has notable fluid, with use of diuretics. No LE Edema!Hospitalization or health care facility admission within last 6 months (Acute) 02/2021 ([facility]?).. 03/2021 (2D ICU [facility]), then 6D [facility], d/c 04/15, reviewing in [facility], 03/17/21...COPD (chronic obstructive pulmonary disease) (Chronic) Non-ST elevation myocardial infarction (NSTEMI) in recovery phase (Acute) Adenocarcinoma, appendix (Acute ~02/2021) Per [facility] Hem Onc note from 03/13/21Chronic respiratory failure with hypoxia (Acute) Met w/ [facility] Pul, XXX .... Hx [facility] PulmCough with hemoptysis (Acute) Wedge compression fracture of first lumbar vertebra, sequela (Acute) Age-related osteoporosis with current pathological fracture, unspecified site, sequela (Acute) Myalgia (Acute) 06/12/20 [facility] RheumEdema leg (Acute) Arteriovenous malformation (Acute 11/16/19) recommend pulmonary angiography and embolization Ray Noriega unguium (Acute) 11/08/19 Dr PlataagnePulmonary hypertension, unspecified (Chronic 10/11/19) [facility], Marco A Howard 08/22/20 [facility] ([facility] 09/06/19) Chronic anticoagulation (Acute) Supplemental oxygen dependent (Acute) Oxygen desaturation (Acute) Serious desaturations occurring with little exertion. Recomm oxygen with exertion as well as overnight, 07/2019.Chronic obstructive pulmonary disease with (acute) exacerbation (Acute) 07/20/19-[facility] Hem Onc progress note.Dr. Smith (Hospitalized @ [facility], 07/04-07/07/19). [ ] APpt with [facility] Pulm (per Luis's referral). 09/06/19 [facility] Pulm - COPD Gold Stage 1 Category B 09/06/19 [facility] (peripheral artery disease) (Chronic) 10/2019, [facility]. 06/17/19 [facility] Vascular, s/p fem-fem+.Numbness in right leg (Acute) Diverticulitis (Chronic) Diarrhea (Acute) Improved, 05/02/21! 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 s/p surgery; chemotherapy starting 12/10/18. Elevated CEAThrombosis (Acute) s/p fem-fem bypass graft; on eliquisEmphysema lung (Chronic) Elevated white blood cell count (Acute) Hypoglycemia (Acute) Bilateral hearing loss (Chronic) Joint disorder (Chronic) Mixed hyperlipidemia (Chronic) Hypothyroidism (Chronic) Essential hypertension (Chronic) Good BP, 10/2018. Acceptable BP off lisinopril, risk of dizziness and low BP higher than elevated BP, so monitor w/o ACEi at the moment. As health improves, hope to re-start ACEi for renal-protection as much as BP control. 12/09/18.Type II diabetes mellitus (Chronic) Medical History? Cataract Positive MECCA (antinuclear antibody) 06/12/20 [facility] Rheum Surgical History? History of fasciotomy thrombosis while in OR for appendectomy requiring thrombectomy and fasciotomy to rle. 10/07/18 [facility] (~12/02/16) History of right cataract surgery (~2005) Social History/Home Situation: Lives alone in a private home with 2 steps to enter. Has a very good neighbor and family support. Has been on chronic oxygen supplementation. Has front-wheeled walker and SPC but states that she does not use them. Equipment Owned/DME: FWW, SPC Subjective: Reports shortness of breath with minimal movement. Able to recover with adequate rest. Complains of fatigue after slow transfers. Objective: General Observation: Supine in bed. Telemetry monitoring in place on high flow rate oxygen supplementation. Mental Status: Alert and oriented as to person, place, time, and purpose. Able to pay attention, focus, and respond appropriately. Pain: Denies Vital Signs: Desaturated to as low as 79% on 40 L of oxygen per minute with FiO2 at 49% after bed to chair transfer. Updated nurse Gladys who then increased high flow rate to 60 L/min with 91% FiO2 with patient saturating between 84% to 92% with standing and very short distance walking. ROM: Right Upper Extremity: Shoulder Flexion WFL. Shoulder abduction WFL. Elbow flexion WFL. Wrist flexion WFL. Functional opening and closing of hand WFL. Left Upper Extremity: Shoulder Flexion WFL. Shoulder abduction WFL. Elbow flexion WFL. Wrist flexion WFL. Functional opening and closing of hand WFL. Right Lower Extremity: Hip flexion WFL. Hip abduction WFL. Knee flexion WFL. Ankle dorsiflexion WFL. Ankle plantarflexion WFL. Left Lower Extremity: Hip flexion WFL. Hip abduction WFL. Knee flexion WFL. Ankle dorsiflexion WFL. Ankle plantarflexion WFL. Strength: Right Upper Extremity: Shoulder flexors 3+/5. Shoulder abductors 3+/5. Elbow flexors 4-/5. Elbow extensors 4-/5. [employer] strong. Left Upper Extremity: Shoulder flexors 3+/5. Shoulder abductors 3+/5. Elbow flexors 4-/5. Elbow extensors 4-/5. [employer] strong. Right Lower Extremity: Hip flexors 3+/5. Hip abductors 3+/5. Knee flexors 4-/5. Knee extensors 4-/5. Ankle dorsiflexors 3/5. Ankle plantarflexors 3/5. Left Lower Extremity: Hip flexors 3+/5. Hip abductors 3+/5. Knee flexors 4-/5. Knee extensors 4-/5. Ankle dorsiflexors 3/5. Ankle plantarflexors 3/5. Bed Mobility/Transfers: Supine to sit minimal assist Sit to stand contact-guard assist Stand to sit contact-guard assist Bed to bedside contact-guard assist Bedside commode to bed contact-guard assist Gait: Instructed patient with level surface ambulation of 10 feet + 5 feet requiring contact guard assist. Britt decreased. Step height decreased. Step length decreased. Desaturated to 79% on 40L of oxygen per minute requiring increase of supplementation to 60 L/min and FiO2 increae to 91% with patient saturating between 84% to 92%. Requires adequate rest, at least 5 minutes after an activity, to resaturate to WNL. Balance: Static Sitting: Good Dynamic Sitting: Good Static Standing: Fair Dynamic Standing: Fair Special Tests: Mobility Limitations Standardized Measure [facility] AM-PAC 6 clicks Basic Mobility Inpatient Short Form: Raw Score: 18 CMS Score: 47% deficit Informed Consent/Education: Patient was instructed in purpose of PT consult and plan of care. Agreeable to proceed with established PT POC to achieve personal goals. Assessment: Severely decreased activity tolerance requiring high flow rate oxygen supplementation. Will require nurse to increase high flow rate parameters for physical therapy sessions to minimize undue desaturation levels. Patient requires the use of a front wheeled walker to conserve energy, reduce fall risk, and maximize functional independence. Patient presents with clinical signs and symptoms consistent with current/admitting diagnoses that have resulted to mobility limitations, gait instability, generalized weakness, and overall ADL decline as demonstrated by the following impairment level findings: 1. Decreased strength to B UE/LE major muscle groups 2. Impaired sitting/standing balance 3. Impaired activity tolerance 4. Significant dyspnea 5. Swelling Impairments are contributing to the following functional limitations: 1. Decline in bed mobility skills 2. Decline in transfer skills 3. Difficulty with ambulation without assistive device and physical assistance 4. Increased completion time for mobility ADL performance 5. Increased risk for falls 6. Difficulty with managing steps alone safely Patient is assessed as a 16047 high complexity based on the following: History: 76-year-old female with past medical history as indicated above Examination: Demonstrable impairment in strength, balance, and mobility level with underlying impairments and functional limitations as exhibited above as well as deficit score of 47% utilizing the [facility] Mobility Inpatient Short Form Presentation: Evolving 69186 high Decision Making: complexity Goals: Goals X1 week 1. Supine-Sit independent 2. Sit-Supine independent 3. Sit-Stand independent 4. Stand-Sit independent with FWW 5. Bed-Chair independent with FWW 6. Chair-Bed independent with FWW 7. Independent gait on level surface with use of FWW for at least 75 feet without report of pain nor dyspnea 8. Independent stair negotiation while holding onto B rails for at least 5 steps without report of pain nor dyspnea 9. Independent with home exercise program 10. Good static and dynamic standing balance/tolerance Plan of Care/Treatment Plan: 1-2x/day, 7 days/week x 1 week. Plan of care has been reviewed with the LOGISTICS MANAGEMENT SPECIALIST providing the service under Physical Therapy direction. Initiate Physical Therapy intervention for pain management as needed, strengthening, bed mobility, transfers, gait, stairs, balance training, and use of assistive device. DISCHARGE RECOMMENDATIONS: SNF vs. PT depending on functional progress. Will update vocational case manager as needed for safe discharge destination. TREATMENT CODE/TIME: 9716 3 x 37 minutes beginning at 15:35 PM. Thank you for the opportunity to participate in the care of this patient. Dulce Solorio PT, DPT, CLT [facility] [place], [place]
--- NOTE | 2021-08-16 15:40 | PDOC.CMIN ---
- If Service Date Differs Date of service: 08/16/21 Time of Service: 15:46 Care Management Initial Assess REASON FOR HOSPITALIZATION:: Diabetic keto acidosis, respiratory failure PAST MEDICAL HISTORY/PAST SURGICAL HISTORY:: Medical History . Cataract. Positive MECCA (antinuclear antibody). 06/12/20 [facility] Rheum. Surgical History . History of fasciotomy. thrombosis while in OR for appendectomy requiring thrombectomy and fasciotomy to rle. 10/07/18 [facility]. History of left cataract surgery (~12/02/16). History of right cataract surgery (~2005) PREVIOUS FUNCTIONAL STATUS/SOCIAL/FAMILY SUPPORTS:: Iza just discharged from [facility]. She is from [place] and her main support person is her daughter Юлия. She has good family support from her son, DIL, daughter, and grandson. She is independent at baseline. CURRENT FUNCTIONAL STATUS:: Iza is being treated for acute on chronic RV failure, pulmonary edema, per MD her DKA has resolved and she continues to diurese and be treated empircally for HCAP. She has been anxious throughout the day and air hungry per nursing. CM continues to follow. Has patient been provided with info about the portal/API?: Yes Did the patient sign up for the portal?: Yes (Previously) CODE STATUS:: DNR/DNI INSURANCE COVERAGE / FINANCIAL ISSUES:: [employer]. Medicare CURRENT HOME/COMMUNITY SERVICES/EQUIPMENT:: Palliative care, glucometer. PRIMARY CARE PHYSICIAN:: Trang Garces POTENTIAL DISCHARGE NEEDS:: S/T, PT, DM Ed evaluations. Possible Palliative consult-patient sees Palliative in [place]. Follow up appointments. PATIENT/FAMILY EDUCATION NEEDS:: Review discharge instructions, discuss Ask Me Three. ANTICIPATED BARRIERS TO DISCHARGE:: None identified. TRANSPORTATION:: Via private vehicle with her family. PLAN:: Anticipate Iza will discharge home when ready per MD. She will follow up with her PCP and plan of care as prescribed. CM continues to follow.
--- NOTE | 2021-08-16 17:23 | PHA.REVIEW ---
Pharmacy Admission Review - Admission Clinical Review (Last Reviewed 08/16/21 @ 06:35 by Alejandro Ramesh MD) JACKLYN (acute kidney injury) (Acute) Lactic acidosis (Acute) Acute and chronic respiratory failure with hypoxia (Acute) Discharge planning issues (Acute) DVT prophylaxis (Acute) Pneumonia (Acute) Acute on chronic right-sided congestive heart failure (Acute) Acute respiratory distress (Acute) Elevated troponin (Acute) Abnormal PET scan of lung (Acute) Mild cognitive impairment (Acute) Adenocarcinoma, appendix (Acute ~02/2021) Chronic respiratory failure with hypoxia (Acute) Chronic obstructive pulmonary disease with (acute) exacerbation (Acute) Penicillins Allergy (Unknown, Verified 08/13/21 14:14) Influenza Virus Vaccines Adverse Reaction (Mild, Verified 07/10/21 08:49) cellulitis Resuscitation Status DNR/DNI Height 5 ft Weight 48.6 kg - Renal Dosing Renal Dosing: BUN 22 mg/dL (7-18) H 08/16/21 12:00 Creatinine 1.2 mg/dL (0.55-1.02) H 08/16/21 12:00 Medications needing adjustments: Intervened List of meds needing interventions: eCrCl 28 ml/min, cefepime adjusted from 2g q8h to 2g q12h -- patient is borderline between q12h vs q24h dosing -- will monitor closely - Anticoagulation Anticoagulation: Hgb 10.0 g/dL (11.2-15.7) L 08/16/21 06:15 Hct 35.6 % (36.0-46.0) L 08/16/21 06:15 Plt Count 308 10^3/uL (130-400) D 08/16/21 06:15 INR 1.1 (0.9-1.1) 08/15/21 15:50 Creatinine 1.2 mg/dL (0.55-1.02) H 08/16/21 12:00 DVT Prophylaxis: Reviewed Medications: Apixaban - Opiate Usage Evaluate Pain Scale/Pains Meds: N/A - Relevant Labs Sodium 136 mmol/L (136-145) 08/16/21 12:00 Potassium 4.4 mmol/L (3.5-5.1) 08/16/21 12:00 Chloride 102 mmol/L (98-107) 08/16/21 12:00 Phosphorus 3.9 mg/dL (2.6-4.7) 08/16/21 12:00 Magnesium 2.0 mg/dL (1.8-2.4) 08/16/21 12:00 Electrolytes, C-Reactive P, ESR: Reviewed - DM Control DM Control: Glucose 193 mg/dL (74-106) H D 08/16/21 12:00 Hemoglobin A1c 9.6 % (<5.7) H 08/16/21 06:15 Finger Stick Blood Glucose 326 Finger Stick Blood Glucose 326 Finger Stick Blood Glucose 195 Finger Stick Blood Glucose 195 Insulin Dosing: Reviewed (insulin gtt dc'd, 24U glargine + aspart per SS) - Heart Failure/OH Heart Failure/OH: Troponin I 93 ng/L (<or=60) H* 08/16/21 12:00 NT-Pro-B Natriuret Pep 58131 pg/mL (<300) H 08/15/21 15:50 EF%, MARIBELL's, B-Blockers, Diuretics: Reviewed - BP Control BP Control: Blood Pressure [Right Arm] 112/62 Blood Pressure 94/54 Blood Pressure 102/61 Blood Pressure 110/64 Blood Pressure 99/56 Blood Pressure 98/56 Blood Pressure 104/62 Blood Pressure 107/61 Blood Pressure 112/62 Blood Pressure 94/68 Blood Pressure 120/60 If elevated: Reviewed - Qtc Review If Elevated: Reviewed List meds needing interventions: 468 on admission - IV to PO Switch IV Medications: Reviewed - Home Meds Home Med List reviewed: Reviewed Relevent Home Meds Not ordered & why?: not ordered: oral diabetic meds (jardiance and metformin) - Current meds Current Medication Order Review: Reviewed - Comments Comments/Follow Ups: unfortunately, flolan is a highly specialized medication that only specialty pharmacies have access to due to its complexity, the logistics of transitioning from inpt to outpt requires an ambulatory infusion pump set up, etc.
--- NOTE | 2021-08-16 17:55 | W.SPSTE ---
Date of service: 08/16/21 Time of Service: 17:00 Subjective Patient referred for clinical swallow evaluation from Dr. Brown given current acute on chronic respiratory failure with hypoxia and high flow nasa cannula oxygenation. Precautions: DNR/DNI HPI: Marlen Yañez is a 76-year-old right-handed woman with a complex past medical history including severe COPD, CHF, pulmonary hypertension, history of NSTEMI, hyperlipidemia, type 2 diabetes, mild cognitive impairment, peripheral artery disease status post right femoral bypass, history of appendiceal cancer status post now with enlarging pulmonary nodules concerning for metastatic disease. Admitted to ICU with acute on chronic multifactorial respiratory failure with hypoxia and acute on chronic CHF. Since admit last night, she has required critical care rom pulmonology this date. See pulmonology critical care event note for further information regarding course of hypoxic events and oxygenation. ?Chest CT 08/15/21: ?1. No evidence of pulmonary embolism, thoracic aortic dissection or aneurysm. 2. Development of a new moderate left pleural effusion. 3. Right basilar infiltrate which may represent atelectasis or pneumonia. 4. Persistent pleural nodular thickening in the right hemithorax.? IMPRESSIONS: Patient is at moderate risk for aspiration-related pulmonary complication given patient?s multifactorial poor respiratory status at baseline, including COPD and CHF, as well as multiple desaturation events in the last 24 hrs when on HFNC, additional precaution should be exercised with provision of PO diet. Recommend to conservatively downgrade patient to Level 5 minced/moist solids in order to decrease work of mastication and potential impact on respiration. Thin liquids still ok. If patient becomes more tolerant of HFNC for extended periods over the weekend, she would likely be a candidate for gradual diet upgrade, first to level 6: soft/bite-size. If this change is tolerated well over the course of 1-2 meals and improved respiratory status is maintained, ok to progress to level 7: regular/baseline diet. Oral care will remain a priority; recommend use of in-line oral care suction kits to reduce risk of aspiration with oral care. RN should provide intermittant or distant supervision to ensure patient is able to maintain use of swallow strategies (small sips/bites, pacing to include breathing breaks, and reduced distractions (TV, nursing care, conversation, etc). Further [employer] services warranted to monitor for diet appropriateness and status changes related to swallow risk/function. Provided education to patient, RN re: anatomy/physiology of swallowing mechanism, overt s/sx to monitor for re: potential aspiration of food liquids, recommendations for improved oral care, [relationship between respiratory function changes and deglutition] and appropriate management strategies to implement as detailed in recommendations section. Instrumentation: N/A RECOMMENDATIONS: ? Diet Texture Modification(s): IDDSI Level(s) 5-Minced & Moist Solids 0-Thin Liquids Medication Intake: Whole with 0-Thin Liquids or 4-Extremely Thick Liquids Alter medications only as advised by MD or Pharmacist RISK MANAGEMENT: Oral hygiene BID/2x per day, and before/after PO intake using friction with toothbrush on all oral structures as tolerated HOB upright as tolerated; upright for all PO intake. Encourage physical mobility as tolerated. ? Level of Assistance/Supervision: Distant/intermittent supervision for all PO intake PO intake only when awake/alert? ? Strategies/Adaptations/Assistive Equipment: Reduce auditory and/or visual distractions when eating, Provide verbal and/or visual cues to use recommended strategies PRN, Small sips and bites when eating, Slow rate of intake ? Posture/Positioning Needs: Maintain upright position at least 30 minutes after meals ? PLAN: [employer] to follow while on unit. GOALS: 1. Patient will tolerate least restrictive diet without increased s/sx dyspnea, aspiration. 2. Patient/caregivers will report increased frequency of oral care to BID & before/after PO intake to reduce pulmonary risks of aspiration. SUBJECTIVE: Patient was contacted at bedside, upright in her chair during dinner meal, awake and alert, agreeable to evaluation, able to communicate wants/needs effectively; requires repetition to demonstrate comprehension of recommendations for safe p.o. intake upon discharge once deemed medically stable, likely 2/2 memory impairment and/or hearing status.? Per RN, patient tolerated her lunch this date (regular/thin) without incident (at that time she was on HFNC 6L/65%) and there have been no other reports of difficulty with swallowing during this stay. Current Diet: Regular/Thin OBJECTIVE All Active Problems? Acute respiratory distress (Acute) DKA (diabetic ketoacidosis) (Acute) Elevated troponin (Acute) Dehydration (Acute) ? Acute on chronic, with presumed affect on ADL. Considering gentle hydration to help with ADL, but close monitoring required due to high risk of fluid overload 2' HF. Abnormal PET scan of lung (Acute) ? (+) lung nodules, serosal implants, possible pancreatic mass 07/19/21.? 2mo review by [facility] oncology to decide on chemo for possible metastatic condition. Mild cognitive impairment (Acute) Memory changes (Acute) ? Acute, possibly 2' steroids .. but she and family have noticed changes x months .. [ ] Neuro Pulmonary nodule (Acute) Mobility impaired (Acute) ? Due to SOB, Ox Dependence, Deconditioning (incl muscle loss) .. ADL are becomin glimited which is terrible for her .. she needs to return to work, errands, etc .. CAD (coronary artery disease) (Chronic) ? ASA Class IV per Cardio notes .. mild diffuse stenosis per [facility] ASSIST[facility], 02/2021 (no stenting).. Hx of fluid overload (Acute) ? Each hospitalization has notable fluid, with use of diuretics. No LE Edema! Hospitalization or health care facility admission within last 6 months (Acute) ? 02/2021 ([facility]?).. 03/2021 (2D ICU [facility]), then 6D [facility], d/c 04/15, reviewing in [facility], 03/17/21... COPD (chronic obstructive pulmonary disease) (Chronic) Non-ST elevation myocardial infarction (NSTEMI) in recovery phase (Acute) Adenocarcinoma, appendix (Acute ~02/2021) ? Per [facility] Hem Onc note from 03/13/21 Chronic respiratory failure with hypoxia (Acute) ? Met w/ [facility] Pul, XXX .... Hx [facility] Pulm Cough with hemoptysis (Acute) Wedge compression fracture of first lumbar vertebra, sequela (Acute) Age-related osteoporosis with current pathological fracture, unspecified site, sequela (Acute) Myalgia (Acute) ? 06/12/20 [facility] Rheum Edema leg (Acute) Arteriovenous malformation (Acute 11/16/19) ? recommend pulmonary angiography and embolization Ray Minor MD Tinea unguium (Acute) ? 11/08/19 Dr Young Pulmonary hypertension, unspecified (Chronic 10/11/19) ? [facility] 08/22/20 Echo at [facility] Hypoxia (Acute 09/06/19) Chronic anticoagulation (Acute) Supplemental oxygen dependent (Acute) Oxygen desaturation (Acute) ? Serious desaturations occurring with little exertion. Recomm oxygen with exertion as well as overnight, 07/2019. Chronic obstructive pulmonary disease with (acute) exacerbation (Acute) ? 07/20/19-[facility] Hem Onc progress note.Dr. Smith (Hospitalized @ [facility], 07/04-07/07/19). [ ] APpt with [facility] Pulm (per Luis's referral). 09/06/19 [facility] Pulm - COPD Gold Stage 1 Category B 09/06/19 Echo at [facility] PAD (peripheral artery disease) (Chronic) ? 10/2019, [facility]. 06/17/19 [facility] Vascular, s/p fem-fem+. Numbness in right leg (Acute) Diverticulitis (Chronic) Diarrhea (Acute) ? Improved, 05/02/21! Seems increased since chemo, but possibly due to Metformin and/or Januvia? 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 09/08/[address] [facility] Hem/Onc Discovered 2' anorexia .. s/p surgery; chemotherapy starting 12/10/18. Elevated CEA Thrombosis (Acute) ? s/p fem-fem bypass graft; on eliquis Emphysema lung (Chronic) Elevated white blood cell count (Acute) Hypoglycemia (Acute) Bilateral hearing loss (Chronic) Joint disorder (Chronic) Mixed hyperlipidemia (Chronic) Hypothyroidism (Chronic) Essential hypertension (Chronic) ? Good BP, 10/2018. Acceptable BP off lisinopril, risk of dizziness and low BP higher than elevated BP, so monitor w/o ACEi at the moment. As health improves, hope to re-start ACEi for renal-protection as much as BP control. 12/09/18. Type II diabetes mellitus (Chronic) Medical History? Cataract Positive MECCA (antinuclear antibody) ? 06/12/20 [facility] Rheum Surgical History? History of fasciotomy ? thrombosis while in OR for appendectomy requiring thrombectomy and fasciotomy to rle. 10/07/18 [facility] History of left cataract surgery (~12/02/16) History of right cataract surgery (~2005) ? Predisposing dysphagia risk factors: CHF, Chronic respiratory failure Clinical signs of possible chronic dysphagia: none known other than above Precipitating dysphagia risk factors / triggering event: acute respiratory and heart failure with hypoxia requiring HFNC. Language: WFL Hearing: appears impaired, kelsie. in setting of noise introduced by high flow nasal cannula Mental Status: requires multiple Speech: WFL Respiratory status: HFNC with 6L/65%, 94-97% oxygen saturation throughout session. RR is 16-24 with varying levels of exertion throughout meal. Appears with increased WOB when cutting food & during mastication. ? DIET ORDERED AT TIME OF EXAMINATION: Regular ? Cranial nerve exam / Oral Motor: Unremarkable Laryngeal function exam: Secretions: WFL Vocal quality: WFL Pitch range: WFL Cough: (volitional) perceptually WFL ? Food items tested: ?? [ ] None. Further swallow assessment not warranted at this time.? [ ] Ice: [x] IDDSI 0: cough x1 with distraction and attempting to speak with liquid in mouth, eliminated with small sips, no distractions [ ] IDDSI 1: [ ] IDDSI 2: [ ] IDDSI 3: [ ] IDDSI 4: [x] IDDSI 5: no s/sx aspiration, noting increased WOB [ ] IDDSI 6: [x] IDDSI 7: no s/sx aspiration, noting increased WOB [ ] Pill/tablet: ? Oral phase: [ ] WFL [ ] Leakage from mouth [ ] Difficulty with bolus manipulation [ ] Difficulty with a-p transport [X] Difficulty chewing ? patient needs to stop to breath with open mouth while food ramains partially chewed in mouth ? increased WOB with chewing [ ] Pocketing [ ] Residue ? Pharyngeal phase: [ ] WFL [ ] Delayed swallow initiation [ ] Reduced hyolaryngeal elevation/excursion [x] Cough before/during swallow [ ] Voice change after swallow? [ ] Throat clearing? [ ] Endorsed stasis? ? Thea Campos M.S., [facility] Speech Language Pathologist [phone], [phone] if unavailable ? [employer] CPT Code: 65332 Clinical Swallowing Evaluation Time spent: 30 minutes Coding
[2021-08-16] MEDS: Melatonin 3 MG TAB 9 MG PO (21:07)
[2021-08-16] MEDS: Insulin Glargine 300 UNITS/3 ML PEN 24 UNITS SC (22:13)
[2021-08-17] VITALS (50 sets, daily range): BP systolic 79–105; BP diastolic 42–70; PULSE 70–116; RESP 8–30; TEMP 31–36.7; O2SAT 87–98
[2021-08-17] MEDS: Levothyroxine 100 MCG TAB PO (05:44)
[2021-08-17] MEDS: Normal Saline Flush 10 ML SYR IVP ×4 (05:45→16:03)
[2021-08-17 06:47] LABS: Abs Immature Grans 0.16 10^3/uL (0.0-0.06); Absolute Basophil Count 0.02 10^3/uL (0.0-0.2); Absolute Eosinophil Count 0.07 10^3/uL (0.0-0.7); Absolute Lymphocyte Count 1.86 10^3/uL (1.2-3.4); Absolute Neutrophil Count 13.43 10^3/uL (1.2-6.7); Basophils % 0.1; Eosinophils % 0.4; HCT 33.8 % (36.0-46.0); HGB 9.8 g/dL (11.2-15.7); Lymphocytes % 11.2; MCH 21.9 pg (27.0-33.0); MCV 75.4 fL (80-95); MPV 10.3 fL (8.0-11.0); Monocytes % 6.6; Neutrophils % 80.7; Nucleated RBC 0 %; Platelet Count 299 10^3/uL (130-400); RBC 4.48 10^6/uL (3.93-5.22); RDW 17.7 % (11.7-14.6); RDW-SD 47.8 fL; WBC 16.64 10^3/uL (4.4-10.8)
[2021-08-17 07:01] LABS: Anion Gap 5.6 mmol/L (3-11); BUN 31 mg/dL (7-18); CO2 28.4 mmol/L (21.0-32.0); CREATININE 1.3 mg/dL (0.55-1.02); Calcium 7.5 mg/dL (8.5-10.1); Chloride 102 mmol/L (98-107); Estimated GFR 39.82 (mL/min/1.73m2); Glucose 166 mg/dL (74-106); Magnesium 1.9 mg/dL (1.8-2.4); Potassium 3.8 mmol/L (3.5-5.1); Sodium 136 mmol/L (136-145)
[2021-08-17] MEDS: CEFEPIME 2 GM in Normal Saline 100 ML IVPB (07:58)
[2021-08-17] MEDS: Cholecalciferol (Vitamin D3) 1,000 UNIT TAB 5000 UNITS PO (07:59)
[2021-08-17] MEDS: predniSONE 20 MG TAB PO (07:59)
[2021-08-17] MEDS: Apixaban 2.5 MG TAB PO ×2 (07:59→21:00)
[2021-08-17] MEDS: Insulin Aspart 300 UNITS/3 ML PEN SC ×4 (08:00→21:02)
[2021-08-17] MEDS: Furosemide 40 MG/4 ML VIAL IVP ×2 (08:00→16:03)
[2021-08-17] MEDS: Albuterol/Ipratropium 3 ML UPD VIAL UPD ×3 (08:55→21:00)
[2021-08-17] MEDS: Metoprolol CR 25 MG TABCR PO (09:31)
[2021-08-17] MEDS: amLODIPine 2.5 MG TAB PO (09:31)
[2021-08-17] MEDS: Tiotropium/Olodaterol 10 PUFF INHALER 2 PUFF IH (09:34)
--- NOTE | 2021-08-17 10:06 | PT.INTREAT ---
PT Notes Visit Reasons: Diabetic Keto Acidosis,Respiratory failure 08/17/2021 SUBJECTIVE: Pt stating she is doing okay today. Her blood pressure has been quite low this morning. We held on PT earlier this AM due to low BP. She is now at a reasonable level to get out of bed. OBJECTIVE: Nursing present through treatment to assist with lines and adjustment of high flow oxygen. Defer therex due to low BP today. TRANSFERS Supine to sit: Min A Sit to stand: CGA Stand to sit: CGA GAIT Device: no AD, STORE CLERK CASHIER Weight bearing: Full Assist: CGA, STORE CLERK CASHIER Distance: 5' to chair Deviation: none VITALS: 103/67, HR 100, Sa02 89%, 65 L/min ASSESSMENT: Short distance gait today to monitor vitals. Pt will benefit from use of FWW for longer distances for balance safety and energy conservation efforts. Will attempt greater distance tomorrow per tolerance. Nursing did suggest nebulizer prior to treatment. PLAN: Continue to progress gait distance, strength and endurance per pt tolerance. Time: 15 minutes [id number] Barbara George PTA Clinic location: [facility] [place], [place]
[2021-08-17] MEDS: LORazepam 2 MG/ML VIAL 0.5 MG IVP (13:49)
--- NOTE | 2021-08-17 15:36 | W.PM.PROGNOT ---
Date of Service Date of service: 08/17/21 Time of Service: 15:36 Assessment and Plan Assessment and plan (1) Acute and chronic respiratory failure with hypoxia: Status: Acute Assessment and plan: chronic RF d/t PHTN and COPD. Acute respiratory failure d/t fluid overload from acute on chronic RHF and superimposed pneumonia. Patient is gradually improving w/ treatment of her pneumonia and with diuresis. (2) Acute on chronic right-sided congestive heart failure: Status: Acute Assessment and plan: continue iv lasix. goal is for net negative 1 to 1.5 liter per day until she reaches her dry wt which appears to be around 45 kg. monitor BUN and creatinine and electrolytes. (3) Pneumonia: Status: Acute Assessment and plan: cont. cefepime and IS and acapella. titrate her oxygen to SPO2 of 88% or higher. (4) Elevated troponin: Status: Acute Assessment and plan: d/t type 2 demand ischemia from her hypoxia. troponin is trending down. No need to further monitor (5) JACKLYN (acute kidney injury): Status: Acute Assessment and plan: good urine output and creatinine down to 1.3 from high of 1.7. monitor carefully while diuresing, avoid over diuresis (6) Type II diabetes mellitus: Status: Chronic Assessment and plan: patient presented w/ DKA but this has resolved. Now on basal/bolus insulin. glucose running in the 150's to low 300's. I will add CHO coverage novolog and increase her sliding scale to high dose/resistant dose insulin (7) COPD (chronic obstructive pulmonary disease): Status: Chronic Assessment and plan: continue her DuoNeb and her Stiolto and her prednisone taper. (8) Pulmonary hypertension, unspecified: Status: Chronic Assessment and plan: Dr. Brown had asked pharmacy to see if epoprostenol could be obtained. I will have to see if she had been tried on an inhaled prostaglandin. She previously has been evaluated by Dr. Jackson, in the PHTN clinic at [facility]. (9) Chronic anticoagulation: Status: Acute Assessment and plan: cont. Apixaban (10) DVT prophylaxis: Status: Acute Assessment and plan: as above (11) PAD (peripheral artery disease): Status: Chronic Assessment and plan: cont. apixaban (12) Discharge planning issues: Status: Acute Assessment and plan: dc home w/ [facility]HS when medically stable Subjective Subjective Interval history since last seen: Patient reports improvement in her dyspnea. No chest pain or palpitations. She has dry cough. No fevers. She remains on HFNC at 60 LPM and 55%. she remains on Cefepime for HCAP and she is on tapering doses of prednisone. She remains on her Stiolto Respimat along w/ scheduled DuoNeb treatments. she continues to diurese (putting out 3150 mL yesterday and 900 mL so far today). Exam Narrative Exam Narrative: Petite white female who is sitting up in bed talking w/ her daughter and in no respiratory discomfort Lungs: scattered end expiratory wheezing; no rhonchi Heart: regular but tachycardic w/ occasional ectopic beats Abdomen: soft, nondistended, nontender Extremities: no peripheral edema Objective Last Vital Signs Temp 36.4 C L 08/17/21 12:00 Pulse 107 H 08/17/21 12:00 Resp 22 08/17/21 14:08 BP 92/62 L 08/17/21 10:09 Pulse Ox 93 08/17/21 14:08 Laboratory Results - last 24 hr 08/17/21 08/17/21 06:11 06:11 WBC 16.64 H RBC 4.48 Hgb 9.8 L Hct 33.8 L MCV 75.4 L MCH 21.9 L MCHC 29.0 L RDW 17.7 H Plt Count 299 MPV 10.3 Immature Gran % 1.0 Neutrophils % 80.7 Lymphocytes % 11.2 Monocytes % 6.6 Eosinophils % 0.4 Basophils % 0.1 Nucleated RBC % 0 Absolute Neutrophils 13.43 H Absolute Lymphocytes 1.86 Absolute Monocytes 1.10 H Absolute Eosinophils 0.07 Absolute Basophils 0.02 Sodium 136 Potassium 3.8 Chloride 102 Carbon Dioxide 28.4 Anion Gap 5.6 BUN 31 H D Creatinine 1.3 H Estimated GFR/1.73 m2 39.82 Glucose 166 H Calcium 7.5 L Magnesium 1.9
[2021-08-17] MEDS: Melatonin 3 MG TAB 9 MG PO (21:00)
[2021-08-17] MEDS: Insulin Glargine 300 UNITS/3 ML PEN 24 UNITS SC (21:01)
[2021-08-18] VITALS (29 sets, daily range): BP systolic 81–105; BP diastolic 55–80; PULSE 79–107; RESP 8–29; TEMP 31–37.3; O2SAT 82–95
[2021-08-18] MEDS: Levothyroxine 100 MCG TAB PO (05:36)
[2021-08-18] MEDS: Albuterol/Ipratropium 3 ML UPD VIAL UPD ×3 (08:41→20:06)
[2021-08-18] MEDS: Tiotropium/Olodaterol 10 PUFF INHALER 2 PUFF IH (08:42)
[2021-08-18] MEDS: amLODIPine 2.5 MG TAB PO (09:20)
[2021-08-18] MEDS: Furosemide 40 MG/4 ML VIAL IVP (09:20)
[2021-08-18] MEDS: predniSONE 20 MG TAB PO (09:21)
[2021-08-18] MEDS: Cholecalciferol (Vitamin D3) 1,000 UNIT TAB 5000 UNITS PO (09:21)
[2021-08-18] MEDS: Apixaban 2.5 MG TAB PO ×2 (09:21→20:06)
[2021-08-18] MEDS: Metoprolol CR 25 MG TABCR PO (09:21)
[2021-08-18] MEDS: CEFEPIME 2 GM in Normal Saline 100 ML IVPB (09:34)
--- NOTE | 2021-08-18 09:56 | PT.INTREAT ---
PT Notes Visit Reasons: Diabetic Keto Acidosis,Respiratory failure 08/18/2021 SUBJECTIVE: Pt stating she is quite independent at baseline and would like to get back to that level. She is struggling with her breathing this AM but would like to get up. OBJECTIVE: TRANSFERS Supine to sit: CGA Sit to stand: CGA Stand to sit: CGA GAIT Device: FWW Weight bearing: Full Assist: CGA Distance: 8' Vitals: 79-83% with movement. Resting at 91% post treatment THEREX: Seated LAQ x 20 bilaterally. ASSESSMENT: Sa02 quickly drops with mobility efforts. She is very motivated to improve. No LOB or gait deviations with short distance ambulation today. PLAN: Continue per POC and pt tolerance. Monitor vitals throughout. Treatment time: 15' [id number] Barbara George PTA Clinic location: [facility] [place], [place]
--- NOTE | 2021-08-18 10:12 | PGE_ITS ---
Date of Service Date of service: 08/18/21 Time of Service: 10:12 Assessment and Plan Assessment and plan (1) Acute and chronic respiratory failure with hypoxia: Status: Acute Assessment and plan: Multifactorial including pneumonia, COPD, pulmonary hypertension, chronic right ventricular failure. Continue systemic antibiotics for pneumonia, steroids for COPD, diuretics for right heart failure, aerosolized bronchodilators for COPD. (2) Acute on chronic right-sided congestive heart failure: Status: Acute Assessment and plan: Continue diuretics as above. Check echocardiogram tomorrow. Her last echocardiogram on file from [facility] was from March 14, 2021 showed normal global LV function with an EF of 60% however she does have known coronary artery disease and on her echo she had some regional wall motion abnormalities including hypokinesis of the basal/inferior septal wall as well as the basal/mid inferior wall. RV is moderately decreased in systolic function and she has moderate pulmonary hypertension with a PASP of 52 mm and she has some significant valvular heart disease include mild to moderate mitral stenosis and MAC. Dr. Brown spoke with pharmacy on Thursday about getting inhaled Flolan. I will discuss this further with Dr. Andrade tomorrow morning and perhaps we can get reports from Dr. Marco A Howard, pulmonary hypertension specialist at [facility] cardiology. (3) Pneumonia: Status: Acute Assessment and plan: Continue cefepime empirically for HCAP as the patient was recently hospitalized at [facility]. I will repeat her inflammatory markers. Continue to encourage use of I-S and Acapella. Continue pulmonary treatment as listed above (4) COPD (chronic obstructive pulmonary disease): Status: Chronic Assessment and plan: Continue her bronchodilators including her DuoNeb treatments and her Stiolto and continue her current prednisone taper (5) Pulmonary hypertension, unspecified: Status: Chronic Assessment and plan: As above (6) Type II diabetes mellitus: Status: Chronic Assessment and plan: Patient had been in DKA but this is since resolved. She is now on basal bolus insulin as well as carbohydrate coverage. I have decreased her nighttime Lantus due to morning hypoglycemia. Blood sugar was down to 58 this morning. I decreased her Lantus by 25% from 24 units down to 18 units. We need to be sure that she is getting a bedtime snack. (7) JACKLYN (acute kidney injury): Status: Acute Assessment and plan: Resolving with treatment of her acute on chronic heart failure. Continue to monitor BMP (8) Microcytic anemia: Status: Acute Assessment and plan: I cannot find in her problem list or her past history that she has had anemia however review of her labs shows that she has had a chronic microcytic anemia. I do not see any iron studies therefore I have ordered some iron studies I will also check her B12 folate level as well although that would be more consistent with a macrocytic anemia. Because of her severe COPD I do not think she is a good candidate for any GI work-up at this time. I also do not see any current use of PPI or H2 blockers for GI prophylaxis. I will start her on some Protonix 40 mg daily. I will ask him to check stool for occult blood. (9) Chronic anticoagulation: Status: Acute Assessment and plan: Chronically on apixaban for PAD. We will continue her apixaban unless she has acute GI bleeding. (10) CAD (coronary artery disease): Status: Chronic Assessment and plan: Patient has known coronary artery disease. Last echocardiogram showed some regional wall motion abnormalities as outlined above. She had a transient rise in her troponin that was felt to be secondary to demand ischemia from her hypoxemia. Her troponin level peaked at 93 ng/L but was never rechecked to confirm that it decline. (11) PAD (peripheral artery disease): Status: Chronic Assessment and plan: Continue apixaban as above (12) DKA (diabetic ketoacidosis): Status: Resolved Assessment and plan: Resolved. Now on basal bolus insulin along with carbohydrate coverage (13) DVT prophylaxis: Status: Acute Assessment and plan: On chronic apixaban (14) Discharge planning issues: Status: Acute Assessment and plan: We will discharge home when medically stable with home health services including nursing and PT. Patient continues to require ICU monitoring while on high flow oxygen. 30 minutes critical care time spent with the patient. Case discussed with patient's primary nurse. Subjective Subjective Interval history since last seen: Overall patient feels improved. She is less dyspneic with transfers in and out of bed. She denies any chest pain. She feels her cough a little more loose although she still has trouble producing any sputum. she remains on HFNC at 55 Lpm and 63%. Exam Narrative Exam Narrative: Elderly white female sitting up in her chair alert and oriented person place time circumstance in no acute respiratory distress. She is able to offer hold a conversation without dyspnea. Lungs with bibasilar rales no rhonchi or wheezing upper aguilar are clear Heart is regular without appreciable gallop or murmur Abdomen soft nontender Lower extremities without peripheral edema Objective Last Vital Signs Temp 37.3 C 08/18/21 09:38 Pulse 107 H 08/18/21 09:38 Resp 17 08/18/21 09:38 BP 98/62 L 08/18/21 06:01 Pulse Ox 94 08/18/21 06:02
[2021-08-18 11:28] LABS: HCT 39.4 % (36.0-46.0); HGB 11.3 g/dL (11.2-15.7); MCH 21.6 pg (27.0-33.0); MCHC 28.7 % (32.0-36.0); MCV 75.5 fL (80-95); MPV 10.7 fL (8.0-11.0); Nucleated RBC 0 %; Platelet Count 391 10^3/uL (130-400); RBC 5.22 10^6/uL (3.93-5.22); RDW 17.5 % (11.7-14.6); WBC 24.69 10^3/uL (4.4-10.8)
[2021-08-18 11:52] LABS: Anion Gap 9.1 mmol/L (3-11); BUN 39 mg/dL (7-18); CO2 28.9 mmol/L (21.0-32.0); CREATININE 1.3 mg/dL (0.55-1.02); Calcium 7.5 mg/dL (8.5-10.1); Chloride 94 mmol/L (98-107); Estimated GFR 39.82 (mL/min/1.73m2); Glucose 234 mg/dL (74-106); Magnesium 1.8 mg/dL (1.8-2.4); Potassium 3.5 mmol/L (3.5-5.1); Sodium 132 mmol/L (136-145)
[2021-08-18 11:54] LABS: Absolute Neutrophil Count 21.97 10^3/uL (1.2-6.7)
[2021-08-18 11:55] LABS: Absolute Eosinophil Count 0.25 10^3/uL (0.0-0.7); Absolute Lymphocyte Count 0.25 10^3/uL (1.2-3.4); Absolute Monocyte Count 2.22 10^3/uL (0.1-0.8)
[2021-08-18 11:56] LABS: Diff Comment Manual Differential; Ferritin 22 ng/mL (8-252); Hypochromasia 1+; Polychromasia Present
[2021-08-18 12:08] LABS: Iron 23 ug/dL (50-170); Total Iron Binding Capacity 416 ug/dL (250-450); Transferrin Sat 6 % (15-50)
[2021-08-18 12:22] LABS: Folate 17.4 ng/mL (8.6-20.0); Vitamin B12 514 pg/mL (193-986)
[2021-08-18 12:31] LABS: C-Reactive Protein 2.42 mg/dL (0.0-0.3)
[2021-08-18] MEDS: Insulin Aspart 300 UNITS/3 ML PEN SC ×4 (13:01→17:06)
[2021-08-18] MEDS: Pantoprazole 40 MG TABCR PO (14:04)
[2021-08-18] MEDS: Furosemide 40 MG TAB PO (16:10)
[2021-08-18] MEDS: Melatonin 3 MG TAB 9 MG PO (21:28)
[2021-08-18] MEDS: Insulin Glargine 300 UNITS/3 ML PEN 18 UNITS SC (21:46)
[2021-08-19] VITALS (29 sets, daily range): BP systolic 74–110; BP diastolic 55–78; PULSE 81–115; RESP 8–24; TEMP 31–37.3; O2SAT 84–96
[2021-08-19] MEDS: Levothyroxine 100 MCG TAB PO (06:33)
[2021-08-19 06:50] LABS: Abs Immature Grans 0.21 10^3/uL (0.0-0.06); Absolute Basophil Count 0.02 10^3/uL (0.0-0.2); Absolute Lymphocyte Count 1.49 10^3/uL (1.2-3.4); Basophils % 0.1; Eosinophils % 1.5; HGB 11.7 g/dL (11.2-15.7); Immature Grans % 1.3; Lymphocytes % 8.9; MCH 21.8 pg (27.0-33.0); MCHC 29.3 % (32.0-36.0); MCV 74.5 fL (80-95); MPV 10.8 fL (8.0-11.0); Monocytes % 8.3; Neutrophils % 79.9; Nucleated RBC 0 %; Platelet Count 346 10^3/uL (130-400); RBC 5.37 10^6/uL (3.93-5.22); RDW 17.4 % (11.7-14.6); RDW-SD 45.6 fL; WBC 16.78 10^3/uL (4.4-10.8)
[2021-08-19 07:00] LABS: Absolute Eosinophil Count 0.25 10^3/uL (0.0-0.7); Absolute Monocyte Count 1.39 10^3/uL (0.1-0.8); Absolute Neutrophil Count 13.41 10^3/uL (1.2-6.7)
[2021-08-19 07:19] LABS: Anion Gap 7.9 mmol/L (3-11); BUN 35 mg/dL (7-18); CO2 32.1 mmol/L (21.0-32.0); CREATININE 1.4 mg/dL (0.55-1.02); Calcium 7.8 mg/dL (8.5-10.1); Chloride 96 mmol/L (98-107); Estimated GFR 36.56 (mL/min/1.73m2); Glucose 191 mg/dL (74-106); NT-proBNP 4236 pg/mL (<300); Sodium 136 mmol/L (136-145)
[2021-08-19 07:22] LABS: Potassium 2.8 mmol/L (3.5-5.1)
--- NOTE | 2021-08-19 07:59 | PCNE_ITS ---
Date of service: 08/19/21 Time of Service: 08:00 History of Present Illness History of Present Illness Chief Complaint: SOB Narrative: From H and P This is a 76-year-old female with an extensive past history which includes appendiceal adenocarcinoma, emphysema-COPD CAD, CHF, SC, chronic anticoagulation, extremity bypass graft, thyroid disease, diabetes, who presented to the ER for acute respiratory distress.Her daughters and daughter- in-law assist the patient in giving her recent history.? It was endorsed that she was discharged from [facility] on Thursday prior to this presentation for generalized weakness, altered mental status, shortness of breath.? She had been recently placed on a steroid taper by her PCP.? She is a palliative care patient, DNR, DNI.? Initially only able to speak in 2-3 word sentences.? She did deny any pain.?She c/o shortness of breath.? She is typically on 6 L nasal cannula but presented to the ER on 3 L.?? Her family reported that she has been sleeping in her recliner since Thursday.? They voiced concerns regarding potential for fluid overloaded and recurrent pneumonia.?Related Data? BiPAP was initiated readily upon presentation with pressure support of 10-10, 30% FIO2.? O2 saturationed then improved to 95-98% and her work of breathing eased.? Noted were: tachycardia, hypotension, tachypnea, O2 sat of 83 on 3 L nasal cannula.? IV solumedrol 125mg IV administered. Laboratory work showed a? white blood cell count of 18.63, D-dimer 826.? ABG was ordered but respiratory unable to obtain; a VBG then obtained. ? Lactate of 9.9.? sodium 130 potassium 5.7.? anion gap 16 5.? glucose 550. creatinine 1.7. GFR of 29.22. calcium 8.4. troponin 75.? BNP at 13,037.? Procalcitonin of 0.3. UA with moderate blood, 10-20 RBCs, glucose >1000. She was better able to communicate and she denied CP.? No F/C, abd pain, N/V. CTA chest: moderate right pleural effusion and severe emphysema but negative for PE or infiltrate. An insulin drip was initiated and she was admitted to the ICU. ? Interim hx: STill on high flow O2 . Non compliant with wearing oxygen. She states she is feeling better, but adamant that she needs to be discharged prior to her great grandchild's birthday green party. Also she wants to get back to work. She says she has seen palliative care in [facility] and has done all the paperwork like advanced directive and DNR papers. She agrees to sign a COLST for us to have on record at [facility] Nursing said she is well known in [facility] Assessment and Plan Assessment and plan (1) Microcytic anemia: Status: Acute (2) JACKLYN (acute kidney injury): Status: Acute (3) Pneumonia: Status: Acute (4) Acute on chronic right-sided congestive heart failure: Status: Acute (5) Elevated troponin: Status: Acute (6) Abnormal PET scan of lung: Status: Acute (7) Mild cognitive impairment: Status: Acute (8) CAD (coronary artery disease): Status: Chronic (9) Palliative care patient: Status: Acute Assessment and plan: Iza is an engaging 76 year old with many comorbidities including DM, CAD, elevated troponin, pulmonary nodule, pulmonary HTN, COPD presenting with SOB, thought michelle multifactorial She is improving and feels like she is nearing ability to go home. Staff feels her oxygen levels are still subpar. We did discuss code status and she agreed to sign a COLST form for [facility]'s EMR. This was completed and filed. Thank you for this consult Review of Systems Narrative: Continues to be SOB, but states she is better. No CP, abdominal pain, MS complaints PFSH All Active Problems (Updated 08/19/21 @ 20:15 by Lesly Her MD, DC) Palliative care patient (Acute) Microcytic anemia (Acute) JACKLYN (acute kidney injury) (Acute) Lactic acidosis (Acute) Acute and chronic respiratory failure with hypoxia (Acute) Discharge planning issues (Acute) DVT prophylaxis (Acute) Pneumonia (Acute) Acute on chronic right-sided congestive heart failure (Acute) Acute respiratory distress (Acute) Elevated troponin (Acute) Abnormal PET scan of lung (Acute) (+) lung nodules, serosal implants, possible pancreatic mass 07/19/21. 2mo [place] [facility] [place] to decide on chemo for possible metastatic condition. Mild cognitive impairment (Acute) Memory changes (Acute) Acute, possibly 2' steroids .. but she and family have noticed changes x months .. [ ] Neuro Pulmonary nodule (Acute) Mobility impaired (Acute) Due to SOB, Ox Dependence, Deconditioning (incl muscle loss) .. ADL are becomin glimited which is terrible for her .. she needs to return to work, errands, etc .. CAD (coronary artery disease) (Chronic) ASA Class IV per Cardio notes .. mild diffuse stenosis per [facility], 02/2021 (no stenting).. COPD (chronic obstructive pulmonary disease) (Chronic) Non-ST elevation myocardial infarction (NSTEMI) in recovery phase (Acute) Adenocarcinoma, appendix (Acute ~02/2021) Per [facility] [place]13[place]21 Chronic respiratory failure with hypoxia (Acute) Met w/ [facility], XXX .... Hx [facility] [place] Cough with hemoptysis (Acute) Wedge compression fracture of first lumbar vertebra, sequela (Acute) Age-related osteoporosis with current pathological fracture, unspecified site, sequela (Acute) Myalgia (Acute) 06/12/20 [facility] [place] Edema leg (Acute) Arteriovenous malformation (Acute 11/16/19) recommend pulmonary angiography and embolization Ray Minor MD Tinea unguium (Acute) 11/08/19 Dr Young Pulmonary hypertension, unspecified (Chronic 10/11/19) [facility] [place] [facility] [place]oxia (Acute 09/06/19) Chronic anticoagulation (Acute) Supplemental oxygen dependent (Acute) Oxygen desaturation (Acute) Serious desaturations occurring with little exertion. Recomm oxygen with exertion as well as overnight, 07/2019. PAD (peripheral artery disease) (Chronic) 10/2019, [facility] [place]17[place]19 [facility] [place], s/p fem-fem+. Numbness in right leg (Acute) Diarrhea (Acute) Improved, 05/02/21! Seems increased since chemo, but possibly due to Metformin and/or Januvia? 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 s/p surgery; chemotherapy starting 12/10/18. Elevated CEA Thrombosis (Acute) s/p fem-fem bypass graft; on eliquis Emphysema lung (Chronic) Elevated white blood cell count (Acute) Hypoglycemia (Acute) Bilateral hearing loss (Chronic) Joint disorder (Chronic) Mixed hyperlipidemia (Chronic) Hypothyroidism (Chronic) Essential hypertension (Chronic) Good BP, 10/2018. Acceptable BP off lisinopril, risk of dizziness and low BP higher than elevated BP, so monitor w/o ACEi at the moment. As health improves, hope to re-start ACEi for renal-protection as much as BP control. 12/09/18. Type II diabetes mellitus (Chronic) Medical History (Updated 08/19/21 @ 20:15 by Lesly Her MD, DC) Cataract Chronic obstructive pulmonary disease with (acute) exacerbation 07/20/19[place] [place] progress note.Dr. Smith (Hospitalized @ [facility], 07/04- 07/07/19). [ ] APpt with [facility] [place] (per Luis's referral). 09/06/19 [facility] - COPD Gold Stage 1 Category B 09/06/19 Echo at [facility] [place] Diverticulitis Hospitalization or health care facility admission within last 6 months 02/2021 ([facility]?).. 03/2021 (2D ICU [facility]), then 6D LR, d/c 04/15, reviewing in [facility], 03/17/21... Hx of fluid overload Each hospitalization has notable fluid, with use of diuretics. No LE Edema! Positive MECCA (antinuclear antibody) 06/12/20 [facility] [place] Surgical History (Updated 08/18/21 @ 10:46 by Carter Braden) H/O extremity bypass graft (09/2018) Fem-Fem Bypass followed by thrombosis of graft History of fasciotomy thrombosis while in OR for appendectomy requiring thrombectomy and fasciotomy to rle. 10/07/18 [facility] [place] History of left cataract surgery (~12/02/16) History of right cataract surgery (~2005) Family History Daughter Anemia Diabetes Hypertension Father COPD (chronic obstructive pulmonary disease) Son Diabetes Heart disease Mother CAD (coronary artery disease) Social History Smoking/Tobacco Use Status: Never Smoking risk assessment performed?: Yes Alcohol Intake: never Drug use: Never Substance use type: does not use current occupation: [employer] Do you feel safe at home: Yes Do you feel safe in your relationship?: Yes Exam Narrative Exam Narrative: [place] woman, cooperative, engaging. She is speaking in complete sentences, lungs - no wheezing, but decreased air movement, a few crackles on left. H eat=rt was RR, SM. Abdomen SNT, no edema in LE. O times 3 Results Last Vital Signs Temp 99.1 F 08/19/21 04:00 Pulse 85 08/19/21 07:10 Resp 16 08/19/21 07:10 BP 110/67 08/19/21 07:10 Pulse Ox 95 08/19/21 07:10 Labs Result diagrams: 08/19/21 06:15 08/19/21 17:05 Labs: Laboratory Results - last 24 hr 08/15/21 08/18/21 08/18/21 15:58 11:00 11:00 WBC 24.69 H RBC 5.22 Hgb 11.3 Hct 39.4 MCV 75.5 L MCH 21.6 L MCHC 28.7 L RDW 17.5 H Plt Count 391 MPV 10.7 Immature Gran % 0.0 Neutrophils % 89.0 Lymphocytes % 1.0 Monocytes % 9.0 Eosinophils % 1.0 Basophils % 0.0 Nucleated RBC % 0 Absolute Neutrophils 21.97 H Absolute Lymphocytes 0.25 L Absolute Monocytes 2.22 H Absolute Eosinophils 0.25 Absolute Basophils 0.00 Polychromasia Present Hypochromasia 1+ ABG Sample Site Cancelled ABG pH Cancelled ABG pCO2 Cancelled ABG pO2 Cancelled ABG HCO3 Cancelled ABG Total CO2 Cancelled ABG O2 Saturation Cancelled ABG Base Excess Cancelled Oxygen Liter Flow Cancelled FiO2 Cancelled Sodium 132 L Potassium 3.5 Chloride 94 L Carbon Dioxide 28.9 Anion Gap 9.1 BUN 39 H Creatinine 1.3 H Estimated GFR/1.73 m2 39.82 Glucose 234 H Calcium 7.5 L Magnesium 1.8 Iron TIBC Transferrin % Sat Ferritin Cancelled C-Reactive Protein 2.42 H NT-Pro-B Natriuret Pep Vitamin B12 Folate 08/18/21 08/18/21 08/18/21 11:00 11:00 11:00 WBC RBC Hgb Hct MCV MCH MCHC RDW Plt Count MPV Immature Gran % Neutrophils % Lymphocytes % Monocytes % Eosinophils % Basophils % Nucleated RBC % Absolute Neutrophils Absolute Lymphocytes Absolute Monocytes Absolute Eosinophils Absolute Basophils Polychromasia Hypochromasia ABG Sample Site ABG pH ABG pCO2 ABG pO2 ABG HCO3 ABG Total CO2 ABG O2 Saturation ABG Base Excess Oxygen Liter Flow FiO2 Sodium Potassium Chloride Carbon Dioxide Anion Gap BUN Creatinine Estimated GFR/1.73 m2 Glucose Calcium Magnesium Iron 23 L TIBC 416 Transferrin % Sat 6 L Ferritin 22 C-Reactive Protein NT-Pro-B Natriuret Pep Vitamin B12 514 Folate 17.4 08/19/21 08/19/21 06:15 06:15 WBC 16.78 H D RBC 5.37 H Hgb 11.7 Hct 40.0 MCV 74.5 L MCH 21.8 L MCHC 29.3 L RDW 17.4 H Plt Count 346 MPV 10.8 Immature Gran % 1.3 Neutrophils % 79.9 Lymphocytes % 8.9 Monocytes % 8.3 Eosinophils % 1.5 Basophils % 0.1 Nucleated RBC % 0 Absolute Neutrophils 13.41 H Absolute Lymphocytes 1.49 Absolute Monocytes 1.39 H Absolute Eosinophils 0.25 Absolute Basophils 0.02 Polychromasia Hypochromasia ABG Sample Site ABG pH ABG pCO2 ABG pO2 ABG HCO3 ABG Total CO2 ABG O2 Saturation ABG Base Excess Oxygen Liter Flow FiO2 Sodium 136 Potassium 2.8 L* Chloride 96 L Carbon Dioxide 32.1 H Anion Gap 7.9 BUN 35 H Creatinine 1.4 H Estimated GFR/1.73 m2 36.56 Glucose 191 H Calcium 7.8 L Magnesium Iron TIBC Transferrin % Sat Ferritin C-Reactive Protein NT-Pro-B Natriuret Pep 4236 H Vitamin B12 Folate
--- NOTE | 2021-08-19 08:00 | DI.US_ITS ---
APPROVED REPORT EXAM: Comprehensive 2D, Doppler, and color-flow Echocardiogram Patient Location: In-Patient Room/Bed: [id number] Distillation Operator Helper: Nancy Holm RDCS (AE) Indications: CHF, CAD, Evaluate RV and LV function Other Information Study Quality: Adequate. Technically limited study due to inability to position patient exam done sup [facility] bedside ICU. Conclusion Normal left ventricular wall thickness and chamber size. Estimated ejection fraction is 60 to 65%. Wall motion is consistent with right ventricular pressure and volume overload The right ventricle is severely dilated and hypokinetic The left atrium is normal in size The right atrium is severely dilated The aortic valve is sclerotic without stenosis or regurgitation Mitral annular calcification, trace mitral regurgitation Normal tricuspid valve with moderate regurgitation. Estimated right ventricular systolic pressure is 74 mmHg Wall motion Left Ventricle The left ventricle is normal size. The left ventricular systolic function is normal. The left ventric ular ejection fraction is within the normal range. There is normal left ventricular wall thickness. T here is normal LV segmental wall motion. Flattened septum consistent with right ventricular volume an d pressure overload. There is no ventricular septal defect visualized. LVEF is 60-65%. Right Ventricle Right ventricle is severely dilated. Right ventricle is hypokinetic. The RVSP is 73.7mmHg. Atria The left atrium size is normal. Right atrium is severely dilated. The interatrial septum is intact wi th no evidence for an atrial septal defect. Aortic Valve The Aortic valve is sclerotic. Aortic valve is trileaflet. There is no aortic valvular stenosis. No a ortic regurgitation is present. Mitral Valve Mild mitral annular calcification. No evidence of mitral valve stenosis. Trace mitral regurgitation. Tricuspid Valve The tricuspid valve is normal in structure. There is no tricuspid valve stenosis. moderate tricuspid regurgitation. Pulmonic Valve The pulmonary valve is normal in structure. There is no pulmonic valvular stenosis. Trace pulmonic re gurgitation. Great Vessels The aortic root is normal in size. The ascending aorta is normal in size. Aortic arch is not well vis ualized. IVC is normal in size and collapses >50% with inspiration. Pericardium There is no pericardial effusion. 2D Dimensions IVSD d PLAX 0.86 cm F: 0.6-1.0 LV Vol A2C d MOD 57.2 mL LVPW d PLAX 0.80 cm F: 0.6 - 1.0 LV Vol A4C d MOD 36.6 mL LVID d PLAX 4.01 cm F: 3.8 - 5.2 LA vol/ BSA A2C s A-L 33.9 mL/m2 LVDs 2.60 cm F: 2.2 - 3.5 LA Area A2C s MOD 17.99 cm2 Ao Root d 2.67 cm F: 2.7 - 3.3 LV EF A4C MOD 60.3 % RA Area A4C 15.19 cm2 LV EF A2C MOD 55.5 % RA Vol/ BSA A4C s A-L 30.4 mL/m2 LV EF Biplane MOD 59.3 % Ao Asc Diam d 2.84 cm F: 2.3 - 3.1 SV 27.82 mL LV EF Teichholz 63.9 % SV Index 19.60 mL/m2 LVEF (Rossi's) 59.30 % F: 54 - 74 LV Volume 39.99 mL F: 46 - 106 LV Volume Index 28.16 mL/m2 F: 29 - 61 LV Vol Biplane MOD 46.9 mL FS 34.25 % M-Mode TAPSE 1.37 cm (M/F) >1.7 LV Diastology MV E' medial 0.039 (>0.07 m/s) E/A Ratio 0.4 LV E/e MED 17.30 (<14) MV E Vmax 0.68 (0.4-1.3 m/s) MV E' lateral 0.056 (>0.1 m/s) MV A Vmax 1.60 (0.4-1.3 m/s) LV E/e LAT 12.00 (<14) MV E/A Ratio 0.42 MV E/E' medial 17.32 MV E/E' lateral 12.05 Aortic Valve LVOT Area 3.03 cm2 AoV Area Vmax 2.26 cm2 LVOT Vmax 1.28 m/s AoV Area/ BSA (Vmax) 1.59 cm2/m2 LVOT Mean Rigo. 0.75 m/s TYE Mean Rigo. 1.75 cm2 LVOT Peak Grad 6.5 mmHg TYE Mean Rigo. Index 1.23 cm2/m2 LVOT Mean Grad 2.7 mmHg LVOT VTI 0.216 m LVOT Diam s 1.95 cm AoV Vmax 1.71 m/s Velocity Ratio 0.74 AoV Mean Rigo. 1.30 m/s AoV Peak Grad 11.7 mmHg LVOT SV 65.63 mL AoV Mean Grad 7.2 mmHg AoV VTI 0.290 m AoV Area VTI 2.26 cm2 AoV Area/ BSA (VTI) 1.59 cm/m2 Mitral Valve MV DT 612 (160-240 msec) MV PHT 177 msec MV Area PHT 1.24 cm2 MV VTI 0.317 m MV VTI Annulus 0.345 m MV Area VTI 2.27 (4.0-6.0 cm2) Pulmonary Valve PV Vmax 0.91 (0.5-1.5 m/s) RVOT Peak Gr. 1.34 mmHg PV Peak Grad 3.3 mmHg RVOT Mean Gr. 0.60 mmHg PV Mean Grad 1.9 mmHg RVOT VTI 0.084 m PV VTI 0.152 m RVOT Vmax 0.58 m/s Tricuspid Valve TR Peak Grad 70.7 mmHg TR Vmax 4.20 m/s RA Pressure 3.00 mmHg RVSP (TR) 73.7 mmHg
[2021-08-19] MEDS: Potassium Chloride 20 MEQ TABCR 40 MEQ PO (08:42)
[2021-08-19] MEDS: predniSONE 20 MG TAB PO (08:42)
[2021-08-19] MEDS: Cholecalciferol (Vitamin D3) 1,000 UNIT TAB 5000 UNITS PO (08:42)
[2021-08-19] MEDS: Pantoprazole 40 MG TABCR PO (08:43)
[2021-08-19] MEDS: Normal Saline 250 ML IV (08:44)
[2021-08-19] MEDS: Normal Saline Flush 10 ML SYR IVP ×2 (08:45→21:20)
[2021-08-19] MEDS: CEFEPIME 2 GM in Normal Saline 100 ML IVPB (08:46)
[2021-08-19] MEDS: Insulin Aspart 300 UNITS/3 ML PEN SC ×6 (09:12→21:44)
[2021-08-19] MEDS: Apixaban 2.5 MG TAB PO ×2 (09:22→20:03)
[2021-08-19] MEDS: Albuterol/Ipratropium 3 ML UPD VIAL UPD (09:44)
[2021-08-19] MEDS: Tiotropium/Olodaterol 10 PUFF INHALER 2 PUFF IH (09:45)
--- NOTE | 2021-08-19 09:47 | W.DIABETESNO ---
Date of service: 08/19/21 Time of Service: 09:47 Diabetes Note Reason for Visit: diabetes NOTE: Iza is following Diabetic Diet/low sodium with adequate intake. Meeting 100% macronutrient needs at this time. Weight has been stable. Blood sugars corrected prn. Not at nutritional risk at this time. Time Spent in Nutritional Counseling and Treatment: 0
[2021-08-19] MEDS: POTASSIUM CHLORIDE 20 MEQ/100 ML BAG 50 MEQ IVPB ×2 (09:59→15:02)
--- NOTE | 2021-08-19 10:34 | PGE_ITS ---
Date of Service Date of service: 08/19/21 Time of Service: 10:34 Assessment and Plan Assessment and plan (1) Acute and chronic respiratory failure with hypoxia: Status: Acute Assessment and plan: Multifactorial including pneumonia, COPD, pulmonary hypertension, chronic right ventricular failure. Continue systemic antibiotics for pneumonia, steroids for COPD, diuretics that were being given for her right heart failure now on hold as I feel that we have reached euvolemic state. Continue her maintenance Stiolto Respimat but I would change her DuoNeb treatments from scheduled 3 times daily to every 4 hours as needed acute wheezing. She does not seem to be having bronchospasm at present time and the scheduled duo nebs may be contributing to her tachycardia. (2) Acute on chronic right-sided congestive heart failure: Status: Acute Assessment and plan: Diuretics are on hold right now she is showing some prerenal azotemia and some mild hypotension and she shows no peripheral edema. Check echocardiogram tomorrow. Her last echocardiogram on file from [facility] was from March 14, 2021 showed normal global LV function with an EF of 60% however she does have known coronary artery disease and on her echo she had some regional wall motion abnormalities including hypokinesis of the basal/inferior septal wall as well as the basal/mid inferior wall. RV is moderately decreased in systolic function and she has moderate pulmonary h ypertension with a PASP of 52 mm and she has some significant valvular heart disease include mild to moderate mitral stenosis and MAC. I discussed the patient's case with Dr. Belen Andrade who indicated that she will try the patient on treprostinil. (3) Pneumonia: Status: Acute Assessment and plan: Continue cefepime empirically for HCAP as the patient was recently hospitalized at [facility]. I will repeat her inflammatory markers. Continue to encourage use of I-S and Acapella. Continue pulmonary treatment as listed above (4) COPD (chronic obstructive pulmonary disease): Status: Chronic Assessment and plan: Continue prednisone taper and Stiolto. Change Combivent i.e. DuoNeb to as needed rather than scheduled. (5) Pulmonary hypertension, unspecified: Status: Chronic Assessment and plan: As above. Treat right heart failure and check echocardiogram. Consider addition of an inhaled prostacyclin analog. Continue low-dose amlodipine as her systolic blood pressure will allow. Continue metoprolol (6) Type II diabetes mellitus: Status: Chronic Assessment and plan: Patient initially presented in DKA which is since resolved. She is now on basal bolus insulin along with carbohydrate coverage. Yesterday she had hypoglycemia and I reduced her Lantus by 25%. This morning her blood sugars up to 300. I have adjusted her nighttime Lantus. I will asked that she get 30 g snack at bedtime to ensure that she does not develop nocturnal hypoglycemia. (7) JACKLYN (acute kidney injury): Status: Acute Assessment and plan: Resolving with treatment of her acute on chronic heart failure. Continue to monitor BMP (8) Microcytic anemia: Status: Acute Assessment and plan: patient has been started on GI prophylaxis w/ protonix. B12 and folate levels normal. Serum iron and transferrin saturation are low. ferritin is on the low end of normal at 22 (should be higher given her acute phase inflammation from her pneumonia). I will put her on Venofer as she has chronic constipation issues and would not tolerate po iron. (9) Chronic anticoagulation: Status: Acute Assessment and plan: Chronically on apixaban for PAD. We will continue her apixaban unless she has acute GI bleeding. (10) CAD (coronary artery disease): Status: Chronic Assessment and plan: Patient has known coronary artery disease. Last echocardiogram showed some regional wall motion abnormalities as outlined above. She had a transient rise in her troponin that was felt to be secondary to demand ischemia from her hypoxemia. Her troponin level peaked at 93 ng/L but was never rechecked to confirm that it decline. (11) PAD (peripheral artery disease): Status: Chronic Assessment and plan: Continue apixaban as above (12) DKA (diabetic ketoacidosis): Status: Resolved Assessment and plan: Resolved. Now on basal bolus insulin along with carbohydrate coverage (13) DVT prophylaxis: Status: Acute Assessment and plan: On chronic apixaban (14) Discharge planning issues: Status: Acute Assessment and plan: We will discharge home when medically stable with home health services including nursing and PT. Patient continues to require ICU monitoring while on high flow oxygen. 30 minutes critical care time spent with the patient. Case discussed with patient's primary nurse. Subjective Subjective Interval history since last seen: Patient has no acute complaints. She has noticed some improvement in her dyspnea and she is tolerating transfers in and out of bed better than when she first presented. Blood pressures have been soft this morning but she remains asymptomatic from this. She denies any dizziness or chest pain. I have held her Lasix and given her small fluid bolus of normal saline 250 mL. She is also hypokalemic and she is receiving IV and oral replacement of her potassium. Her oxygen requirements continue to improve. She is now down to 30 L/min high flow nasal cannula. Dr. Andrade's going to try to set her up with an Oxymizer as she feels that she has been getting excess oxygen over the weekend. Exam Narrative Exam Narrative: Petite elderly white female sitting up in her chair able to converse in complete paragraphs without getting dyspneic. Neck without noticeable JVD. Lungs are clear to auscultation. No wheezes rales or rhonchi Heart is regular but slightly tachycardic. Rhythm monitor telemetry sinus tachycardia. Abdomen soft and nontender nondistended normal bowel sounds Lower extremities without peripheral edema. Objective Last Vital Signs Temp 37.3 C 08/19/21 04:00 Pulse 88 08/19/21 10:10 Resp 20 08/19/21 10:10 BP 91/59 L 08/19/21 10:10 Pulse Ox 89 L 08/19/21 10:10 Laboratory Results - last 24 hr 08/15/21 08/18/21 08/18/21 15:58 11:00 11:00 WBC 24.69 H RBC 5.22 Hgb 11.3 Hct 39.4 MCV 75.5 L MCH 21.6 L MCHC 28.7 L RDW 17.5 H Plt Count 391 MPV 10.7 Immature Gran % 0.0 Neutrophils % 89.0 Lymphocytes % 1.0 Monocytes % 9.0 Eosinophils % 1.0 Basophils % 0.0 Nucleated RBC % 0 Absolute Neutrophils 21.97 H Absolute Lymphocytes 0.25 L Absolute Monocytes 2.22 H Absolute Eosinophils 0.25 Absolute Basophils 0.00 Polychromasia Present Hypochromasia 1+ ABG Sample Site Cancelled ABG pH Cancelled ABG pCO2 Cancelled ABG pO2 Cancelled ABG HCO3 Cancelled ABG Total CO2 Cancelled ABG O2 Saturation Cancelled ABG Base Excess Cancelled Oxygen Liter Flow Cancelled FiO2 Cancelled Sodium 132 L Potassium 3.5 Chloride 94 L Carbon Dioxide 28.9 Anion Gap 9.1 BUN 39 H Creatinine 1.3 H Estimated GFR/1.73 m2 39.82 Glucose 234 H Calcium 7.5 L Magnesium 1.8 Iron TIBC Transferrin % Sat Ferritin Cancelled C-Reactive Protein 2.42 H NT-Pro-B Natriuret Pep Vitamin B12 Folate 08/18/21 08/18/21 08/18/21 11:00 11:00 11:00 WBC RBC Hgb Hct MCV MCH MCHC RDW Plt Count MPV Immature Gran % Neutrophils % Lymphocytes % Monocytes % Eosinophils % Basophils % Nucleated RBC % Absolute Neutrophils Absolute Lymphocytes Absolute Monocytes Absolute Eosinophils Absolute Basophils Polychromasia Hypochromasia ABG Sample Site ABG pH ABG pCO2 ABG pO2 ABG HCO3 ABG Total CO2 ABG O2 Saturation ABG Base Excess Oxygen Liter Flow FiO2 Sodium Potassium Chloride Carbon Dioxide Anion Gap BUN Creatinine Estimated GFR/1.73 m2 Glucose Calcium Magnesium Iron 23 L TIBC 416 Transferrin % Sat 6 L Ferritin 22 C-Reactive Protein NT-Pro-B Natriuret Pep Vitamin B12 514 Folate 17.4 08/19/21 08/19/21 06:15 06:15 WBC 16.78 H D RBC 5.37 H Hgb 11.7 Hct 40.0 MCV 74.5 L MCH 21.8 L MCHC 29.3 L RDW 17.4 H Plt Count 346 MPV 10.8 Immature Gran % 1.3 Neutrophils % 79.9 Lymphocytes % 8.9 Monocytes % 8.3 Eosinophils % 1.5 Basophils % 0.1 Nucleated RBC % 0 Absolute Neutrophils 13.41 H Absolute Lymphocytes 1.49 Absolute Monocytes 1.39 H Absolute Eosinophils 0.25 Absolute Basophils 0.02 Polychromasia Hypochromasia ABG Sample Site ABG pH ABG pCO2 ABG pO2 ABG HCO3 ABG Total CO2 ABG O2 Saturation ABG Base Excess Oxygen Liter Flow FiO2 Sodium 136 Potassium 2.8 L* Chloride 96 L Carbon Dioxide 32.1 H Anion Gap 7.9 BUN 35 H Creatinine 1.4 H Estimated GFR/1.73 m2 36.56 Glucose 191 H Calcium 7.8 L Magnesium Iron TIBC Transferrin % Sat Ferritin C-Reactive Protein NT-Pro-B Natriuret Pep 4236 H Vitamin B12 Folate
[2021-08-19] MEDS: Metoprolol CR 25 MG TABCR PO (10:48)
--- NOTE | 2021-08-19 10:53 | W.PULMCC ---
General Date of Service Date of service: 08/19/21 Time of Service: 08:30 Reason for Admission to ICU: Hypoxic respiratory failure Acute on chronic RV failure Assessment and Plan Assessment and plan (1) Acute and chronic respiratory failure with hypoxia: Status: Acute (2) Acute on chronic right-sided congestive heart failure: Status: Acute (3) Pneumonia: Status: Acute (4) Elevated troponin: Status: Acute (5) Abnormal PET scan of lung: Status: Acute (6) Mild cognitive impairment: Status: Acute (7) COPD (chronic obstructive pulmonary disease): Status: Chronic (8) Pulmonary hypertension, unspecified: Status: Chronic (9) Type II diabetes mellitus: Status: Chronic (10) DKA (diabetic ketoacidosis): Status: Resolved (11) Lactic acidosis: Status: Acute (12) JACKLYN (acute kidney injury): Status: Acute Assessment and plan: This is a 76 yo female with a complex medical history including diabetes, pulmonary hypertension and right heart failure who is admitted to the ICU for acute on chronic hypoxic respiratory failure. 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 She is stable on HFNC but seems as though there was not adequate oxygen titration of her O2 over the weekend. I will trial her on an oxymizer to see if she can tolerate this. Additionally, restarting Tyvaso on her may be indicated - even though Tyvaso is technically for ILD related PH, it may provide some benefit. The risk with this is that due to COPD it may worsen VQ matching by vasodilating vessel serving emphysematous lung. She had been trialed on Tyvaso previously at [facility] so I do have evidence that it is safe in her. Her DKA is resolved. She will be covered for HAP with cefepime (negative MRSA nares) given her recent hospital stay at [facility]. She is currently on 20mg prednisone, but will work on decreasing this as well to help with both her diabetes and fluid retention. Recommendations Pulmonary: Acute on chronic hypoxic respiratory failure - HFNC for sats 88-92% - will try her on oxymizer today - Incentive spirometry when able - out of bed to chair COPD - not in exacerbation currently - continue home Stiolto and prn albuterol - Duonebs prn - Taper prednisone: 20mg for 4 days, 10mg for 4 days, 5mg for 4 days Cardiac: RV Failure - seems to now be euvolemic - will hold further diuresis - trops are down trending, no need to continue trending - BNP has decreased significantly - will work on getting her Tyvaso 18mcg inhalation QID s/p fem-fem bypass - continue Eliquis h/o HTN - continue home BP meds Renal: JACKLYN - strict I/O's - holding further diuresis I&O: Intake & Output 08/16/21 08/17/21 08/18/21 08/19/21 23:59 23:59 23:59 23:59 Intake Total 1554.858 / 1554.858 760 / 760 700 / 700 610 / 610 Output Total 3150 / 3150 3350 / 3350 1700 / 1700 1500 / 1500 Balance -1595.142 / -1595.142 -2590 / -2590 -1000 / -1000 -890 / -890 Weight 48.6 kg 48.2 kg 48 kg Daily Fluid Goal:: Even GI Nutrition: continue diet Date of Last Bowel Movement: 08/18/21 Infectious Disease: Pneumonia, concern for HAP - on cefepime - continue for total of 7 day course - f/u blood cultures - negative MRSA nares Hematologic: No acute concerns - on Eliquis Neurologic: No acute concerns Endocrine: DKA, resolved - continue home Lantus and sliding scale Prophylaxis: on Eliquis no PPI ppx indicated currently Code Status: Resuscitation Status DNR/DNI Subjective Critical and life-threatening events over the past 24 hours: She remained on HFNC throughout the weekend despite being -5L cumulatively during her stay. Today she feels about the same. She has a good appetite. She has a worsening JACKLYN, but did receive some fluid back due to concern for over diuresis. Her potassium is very low. BNP has significantly decreased. Exam Narrative Exam Narrative: Bedside POCUS 08/16/21: All 4 cardiac views seen will good windows LV appears to be underfilled and almost hyperdynamic. The IVC is of normal size and collapses >50% with inspiration. There are B-lines bilaterally. The RV is dilated and and significantly reduced function. The RA is enlarged as well. Const General: cooperative Nutritional Appearance: average body habitus HENMT Head: normal to inspection Mouth: oral mucosae normal Eyes Pupils: PERRL Neck Neck: normal visual inspection Resp Effort & Inspection: respiratory distress Auscultation: rales and no wheezes Cardio Rate: regular rate Rhythm: regular rhythm GI Inspection: normal to inspection Skin General skin exam: no rashes or lesions noted Neuro General: patient alert and patient awake Extrem General: normal to inspection Psych Mental Status: mental status grossly normal Most Recent VS/Results Last Vital Signs Temp 37.3 C 08/19/21 04:00 Pulse 88 08/19/21 10:10 Resp 20 08/19/21 10:10 BP 91/59 L 08/19/21 10:10 Pulse Ox 89 L 08/19/21 10:10 Laboratory Results - last 24 hr 08/15/21 08/18/21 08/18/21 15:58 11:00 11:00 WBC 24.69 H RBC 5.22 Hgb 11.3 Hct 39.4 MCV 75.5 L MCH 21.6 L MCHC 28.7 L RDW 17.5 H Plt Count 391 MPV 10.7 Immature Gran % 0.0 Neutrophils % 89.0 Lymphocytes % 1.0 Monocytes % 9.0 Eosinophils % 1.0 Basophils % 0.0 Nucleated RBC % 0 Absolute Neutrophils 21.97 H Absolute Lymphocytes 0.25 L Absolute Monocytes 2.22 H Absolute Eosinophils 0.25 Absolute Basophils 0.00 Polychromasia Present Hypochromasia 1+ ABG Sample Site Cancelled ABG pH Cancelled ABG pCO2 Cancelled ABG pO2 Cancelled ABG HCO3 Cancelled ABG Total CO2 Cancelled ABG O2 Saturation Cancelled ABG Base Excess Cancelled Oxygen Liter Flow Cancelled FiO2 Cancelled Sodium 132 L Potassium 3.5 Chloride 94 L Carbon Dioxide 28.9 Anion Gap 9.1 BUN 39 H Creatinine 1.3 H Estimated GFR/1.73 m2 39.82 Glucose 234 H Calcium 7.5 L Magnesium 1.8 Iron TIBC Transferrin % Sat Ferritin Cancelled C-Reactive Protein 2.42 H NT-Pro-B Natriuret Pep Vitamin B12 Folate 08/18/21 08/18/21 08/18/21 11:00 11:00 11:00 WBC RBC Hgb Hct MCV MCH MCHC RDW Plt Count MPV Immature Gran % Neutrophils % Lymphocytes % Monocytes % Eosinophils % Basophils % Nucleated RBC % Absolute Neutrophils Absolute Lymphocytes Absolute Monocytes Absolute Eosinophils Absolute Basophils Polychromasia Hypochromasia ABG Sample Site ABG pH ABG pCO2 ABG pO2 ABG HCO3 ABG Total CO2 ABG O2 Saturation ABG Base Excess Oxygen Liter Flow FiO2 Sodium Potassium Chloride Carbon Dioxide Anion Gap BUN Creatinine Estimated GFR/1.73 m2 Glucose Calcium Magnesium Iron 23 L TIBC 416 Transferrin % Sat 6 L Ferritin 22 C-Reactive Protein NT-Pro-B Natriuret Pep Vitamin B12 514 Folate 17.4 08/19/21 08/19/21 06:15 06:15 WBC 16.78 H D RBC 5.37 H Hgb 11.7 Hct 40.0 MCV 74.5 L MCH 21.8 L MCHC 29.3 L RDW 17.4 H Plt Count 346 MPV 10.8 Immature Gran % 1.3 Neutrophils % 79.9 Lymphocytes % 8.9 Monocytes % 8.3 Eosinophils % 1.5 Basophils % 0.1 Nucleated RBC % 0 Absolute Neutrophils 13.41 H Absolute Lymphocytes 1.49 Absolute Monocytes 1.39 H Absolute Eosinophils 0.25 Absolute Basophils 0.02 Polychromasia Hypochromasia ABG Sample Site ABG pH ABG pCO2 ABG pO2 ABG HCO3 ABG Total CO2 ABG O2 Saturation ABG Base Excess Oxygen Liter Flow FiO2 Sodium 136 Potassium 2.8 L* Chloride 96 L Carbon Dioxide 32.1 H Anion Gap 7.9 BUN 35 H Creatinine 1.4 H Estimated GFR/1.73 m2 36.56 Glucose 191 H Calcium 7.8 L Magnesium Iron TIBC Transferrin % Sat Ferritin C-Reactive Protein NT-Pro-B Natriuret Pep 4236 H Vitamin B12 Folate Review of Systems All systems reviewed & are unremarkable except as noted in HPI and below Time spent with patient Time spent in Critical Care: 45 Time spent in Critical care included: Coordination of care, Chart review, Documenting critically ill care, Time at immediate bedside and Discussing critically ill care with other medical staff
[2021-08-19 11:17] LABS: Lab Add On Test DONE
--- NOTE | 2021-08-19 11:50 | PT.INTREAT ---
PT Notes Visit Reasons: Diabetic Keto Acidosis,Respiratory failure 08/19/2021 SUBJECTIVE: Iza stating she is doing pretty good today. She slept well. OBJECTIVE: Nursing present majority of treatment monitoring her BP as it was on the low side. Not symptomatic. TRANSFERS Supine to sit: CGA Sit to stand: CGA Stand to sit: CGA GAIT Device: FWW Weight bearing: Full Assist: CGA Distance: 10' Deviation: gait limited by low Sa02 and high flow O2 VITALS: 79-82% with gait, resting back to 90%. THEREX: Seated LE strengthening exercises as noted on flow sheet. Requires rest breaks between sets due to SOB. ASSESSMENT: No LOB or path deviations with short distance ambulation. Her Sa02 drops quickly limiting her gait distance. PLAN: Continue current POC. Treatment time: 25 minutes Total time: 25 minutes Barbara George PTA Clinic location: [facility] [place], [place]
[2021-08-19 12:53] LABS: Magnesium 1.9 mg/dL (1.8-2.4)
[2021-08-19] MEDS: IRON SUCROSE COMPLEX 200 MG in Normal Saline 100 ML 400 MG IVPB (13:38)
[2021-08-19 15:39] LABS: C Diff PCR Negative (Negative)
--- NOTE | 2021-08-19 16:10 | PT.INTREAT ---
PT Notes Visit Reasons: Diabetic Keto Acidosis,Respiratory failure Inpatient Physical Therapy Treatment Note [facility] Date: 08/19/21 OBJECTIVE: Sit-stand: CGA Stand-sit: CGA GAIT Assistive Device: FWW Weight bearing: Full Assist: CGA Distance: Marching in place x 2 to fatigue. Pt had 2 visitors and not much room for walking in the room so we chose walking in place. THEREX: Pt completed UE and LE strengthening ther ex as per flow sheet. Pt's oxygen was 79%-87% during her session today. ASSESSMENT: Pt tolerated today's session fairly well. Pt was fatigued during her session and did require rest periods for SOB low oxygen and fatigue. Pt was very motivated to complete PT today. PLAN: Cont as per Pt POC. TREATMENT CODE/TIME: 3:45-4:05 (20) TP
[2021-08-19 17:37] LABS: Potassium 4.9 mmol/L (3.5-5.1)
--- NOTE | 2021-08-19 18:43 | PDOC.CMPRO ---
- If Service Date Differs Date of service: 08/19/21 Time of Service: 18:43 Care Management Progress Note S/O: Iza continues to be treated, and be followed by pulmonary. CM continues to follow. A: 76 year old admitted 08/15/21 diabetic keto acidosis, respiratory failure P: Anticipate Iza will discharge home with new VNA orders through [facility] ([place]) when ready per MD. She will follow up with her PCP and plan of care as prescribed. CM continues to follow.
[2021-08-19] MEDS: Potassium Chloride 10 MEQ CAPCR 20 MEQ PO (20:03)
[2021-08-19] MEDS: Melatonin 3 MG TAB 9 MG PO (21:20)
[2021-08-19] MEDS: Insulin Glargine 300 UNITS/3 ML PEN 20 UNITS SC (21:43)
[2021-08-19] MEDS: LORazepam 2 MG/ML VIAL 0.5 MG IVP (23:24)
[2021-08-20] VITALS (20 sets, daily range): BP systolic 93–115; BP diastolic 56–67; PULSE 58–105; RESP 11–26; TEMP 36.3–36.8; O2SAT 78–98
[2021-08-20] MEDS: Normal Saline Flush 10 ML SYR IVP ×2 (05:43→13:08)
[2021-08-20] MEDS: Levothyroxine 100 MCG TAB PO (05:43)
[2021-08-20 07:22] LABS: Anion Gap 8.7 mmol/L (3-11); BUN 34 mg/dL (7-18); CO2 27.3 mmol/L (21.0-32.0); CREATININE 1.1 mg/dL (0.55-1.02); Calcium 7.8 mg/dL (8.5-10.1); Chloride 103 mmol/L (98-107); Estimated GFR 48.29 (mL/min/1.73m2); Glucose 211 mg/dL (74-106); Potassium 4.3 mmol/L (3.5-5.1); Sodium 139 mmol/L (136-145)
[2021-08-20] MEDS: Tiotropium/Olodaterol 10 PUFF INHALER 2 PUFF IH (07:38)
[2021-08-20] MEDS: predniSONE 10 MG TAB PO (08:43)
[2021-08-20] MEDS: Cholecalciferol (Vitamin D3) 1,000 UNIT TAB 5000 UNITS PO (08:43)
[2021-08-20] MEDS: Pantoprazole 40 MG TABCR PO (08:44)
[2021-08-20] MEDS: Metoprolol CR 25 MG TABCR PO (08:45)
[2021-08-20] MEDS: Apixaban 2.5 MG TAB PO ×2 (08:46→20:10)
[2021-08-20] MEDS: amLODIPine 2.5 MG TAB PO (08:46)
[2021-08-20] MEDS: CEFEPIME 2 GM in Normal Saline 100 ML IVPB (09:04)
--- NOTE | 2021-08-20 09:07 | W.PULMPROG ---
Assessment and Plan Assessment and plan (1) Acute and chronic respiratory failure with hypoxia: Status: Acute (2) Acute on chronic right-sided congestive heart failure: Status: Acute (3) COPD (chronic obstructive pulmonary disease): Status: Chronic (4) Pneumonia: Status: Acute Assessment and plan: This is a 76 yo female with a complex medical history including diabetes, pulmonary hypertension and right heart failure who is admitted to the ICU for acute on chronic hypoxic respiratory failure. 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 She is stable on oxymizer now. As she has improved we will hold off on Tyvaso (particularly as it is very cumbersome to get as an inpatient). She will be covered for HAP with cefepime (negative MRSA nares) given her recent hospital stay at [place]. She will be fine for discharge on Levaquin for the remainder of her course. She will also continue the prednisone taper. Acute on chronic hypoxic respiratory failure - HFNC for sats 88-92% - will try her on oxymizer today - Incentive spirometry when able - out of bed to chair COPD - not in exacerbation currently - continue home Stiolto and prn albuterol - Duonebs prn - Taper prednisone: 20mg for 4 days, 10mg for 4 days, 5mg for 4 days RV Failure - seems to now be euvolemic - would have her on Lasix 40mg PO daily (home dose is 20mg but would increase this) - trops are down trending, no need to continue trending - BNP has decreased significantly - I will arrange follow up with me as an outpatient Pneumonia, concern for HAP - on cefepime - can switch to Levaquin for the remainder of her 7 day course - blood cultures with no growth - negative MRSA nares General Date Of Service Date of service: 08/20/21 Time of Service: 07:45 Reason for Consult: Hypoxic respiratory failure Acute on Chronic RV failure Subjective Note Note: Iza is looking great this morning in the chair. She says she is feeling much better. She has been tolerating the oxymizer at 6-8LPM. Her JACKLYN has also improved. Exam Narrative Exam Narrative: Bedside POCUS 08/16/21: All 4 cardiac views seen will good windows LV appears to be underfilled and almost hyperdynamic. The IVC is of normal size and collapses >50% with inspiration. There are B-lines bilaterally. The RV is dilated and and significantly reduced function. The RA is enlarged as well. Const General: cooperative Nutritional Appearance: average body habitus HENMT Head: normal to inspection Mouth: oral mucosae normal Eyes Pupils: PERRL Neck Neck: normal visual inspection Resp Effort & Inspection: respiratory distress Auscultation: rales and no wheezes Cardio Rate: regular rate Rhythm: regular rhythm GI Inspection: normal to inspection Skin General skin exam: no rashes or lesions noted Neuro General: patient alert and patient awake Extrem General: normal to inspection Psych Mental Status: mental status grossly normal Objective Last Vital Signs Temp 36.7 C 08/19/21 15:00 Pulse 103 H 08/20/21 06:28 Resp 18 08/20/21 08:00 BP 115/67 08/20/21 08:11 Pulse Ox 92 08/20/21 08:08 Laboratory Results - last 24 hr 08/19/21 08/19/21 08/19/21 06:15 06:15 13:00 Sodium Potassium Chloride Carbon Dioxide Anion Gap BUN Creatinine Estimated GFR/1.73 m2 Glucose Calcium Magnesium 1.9 Stl C.difficile Tox PCR Negative Add-On Test Request DONE 08/19/21 08/20/21 17:05 06:30 Sodium 139 Potassium 4.9 D 4.3 Chloride 103 Carbon Dioxide 27.3 Anion Gap 8.7 BUN 34 H Creatinine 1.1 H Estimated GFR/1.73 m2 48.29 Glucose 211 H Calcium 7.8 L Magnesium Stl C.difficile Tox PCR Add-On Test Request Results Medications Medications: Active Medications Generic Name Dose Route Start Last Admin Trade Name Freq PRN Reason Stop Dose Admin Acetaminophen 325 - 650 mg 08/15/21 19:38 Acetaminophen 325 Mg Tab PO Q4H PRN PRN Albuterol Sulfate 2.5 mg 08/15/21 19:33 Albuterol 2.5 Mg/3 Ml Inh Soln Vial UPD Q2H PRN PRN Albuterol/Ipratropium 3 ml 08/19/21 10:52 Albuterol/Ipratropium 3 Ml Upd Vial UPD Q4H PRN PRN Wheezing Amlodipine Besylate 2.5 mg 08/16/21 08:30 08/20/21 08:46 Amlodipine 2.5 Mg Tab PO 2.5 mg DAILY STAN Administration Apixaban 2.5 mg 08/15/21 22:00 08/20/21 08:46 Apixaban 2.5 Mg Tab PO 2.5 mg BID STAN Administration Cholecalciferol 5,000 units 08/16/21 08:30 08/20/21 08:43 Cholecalciferol (Vitamin D3) 1,000 Unit Tab PO 5,000 units DAILY STAN Administration Device 1 each 08/15/21 20:00 Inhaler, Assist Device MC DIRECTED STAN Dextrose 0 gm 08/16/21 08:17 Glucose 40% Oral Solution 15 Gm/37.5 Gm Tube PO DIRECTED PRN Dextrose/Water 0 gm 08/16/21 08:17 Dextrose 50%-Water 25 Gm/50 Ml Syr IVP DIRECTED PRN Dimethicone/Zinc Oxide 0 gm 08/15/21 19:33 Lanie Protect Cream 142 Gm Tube TP PRN PRN Furosemide 40 mg 08/18/21 16:00 08/18/21 16:10 Furosemide 40 Mg Tab PO 40 mg BID@0830,1600 [facility] Administration Cefepime HCl 2 gm/ Sodium 100 mls @ 200 mls/hr 08/18/21 08:00 08/20/21 09:04 Chloride IVPB 200 mls/hr Q24H [facility] Administration IV Miscellaneous Supplies 1 each 08/15/21 15:45 Iv Access IV DIRECTED [facility] Insulin Aspart 0 units 08/16/21 12:00 08/19/21 21:44 Insulin Aspart 300 Units/3 Ml Pen SC 9 unit 0800,1200,1700,2200 [facility] Administration Protocol Insulin Aspart 0 units 08/18/21 08:00 08/19/21 17:58 Insulin Aspart 300 Units/3 Ml Pen SC 3 units 0800,1200,1700 [facility] Administration Insulin Glargine 20 units 08/19/21 22:00 08/19/21 21:43 Insulin Glargine 300 Units/3 Ml Pen SC 20 units HS [facility] Administration Levothyroxine Sodium 100 mcg 08/16/21 06:00 08/20/21 05:43 Levothyroxine 100 Mcg Tab PO 100 mcg 0600 STAN Administration Lorazepam 0.5 mg 08/16/21 10:36 08/19/21 23:24 Lorazepam 2 Mg/Ml Vial IVP 0.5 mg Q6H PRN PRN Administration Melatonin 9 mg 08/16/21 22:00 08/19/21 21:20 Melatonin 3 Mg Tab PO 9 mg HS STAN Administration Metoprolol Succinate 25 mg 08/16/21 08:30 08/20/21 08:45 Metoprolol Cr 25 Mg Tabcr PO 25 mg DAILY STAN Administration Morphine Sulfate 5 mg 08/16/21 11:30 08/18/21 03:17 Morphine 10 Mg/5ml Soln. 5ml Cup PO 5 mg Q2H PRN PRN Administration dyspnea Pantoprazole Sodium 40 mg 08/19/21 07:30 08/20/21 08:44 Pantoprazole 40 Mg Tabcr PO 40 mg DAILY@0730 STAN Administration Polyethylene Glycol 17 gm 08/19/21 12:52 Polyethylene Glycol 3350 17 Gm Packet PO DAILY PRN PRN constipation Potassium Chloride 20 meq 08/19/21 20:00 08/19/21 20:03 Potassium Chloride 10 Meq Capcr PO 20 meq BID STAN Administration Prednisone 10 mg 08/20/21 08:30 08/20/21 08:43 Prednisone 10 Mg Tab PO 08/23/21 09:00 10 mg DAILY STAN Administration Sodium Chloride 0 ml 08/15/21 18:23 08/20/21 05:43 Normal Saline Flush 10 Ml Syr IVP 40 ml PRN PRN Administration Tiotropium [place]/Olodaterol 2 puff 08/16/21 08:30 08/20/21 07:38 Tiotropium/Olodaterol 10 Puff Inhaler IH 2 puff DAILY STAN Administration Allergies Penicillins Allergy (Unknown, Verified 08/13/21 14:14) Influenza Virus Vaccines Adverse Reaction (Mild, Verified 07/10/21 08:49) cellulitis Labs Result Diagrams: 08/19/21 06:15 08/20/21 06:30 Labs: 08/15/21 17:00 Blood Blood Culture - Preliminary NO GROWTH 96 HOURS 08/15/21 17:00 Blood Blood Culture - Preliminary NO GROWTH 96 HOURS 08/19/21 13:00 Stool Lactoferrin Latex Agglutination - Final 08/16/21 18:45 Nose MRSA Screen - Final Laboratory Tests Range/Units 08/15/21 08/15/21 08/15/21 15:50 15:50 15:50 WBC (4.4-10.8) 10^3/uL RBC (3.93-5.22) 10^6/uL Hgb (11.2-15.7) g/dL Hct (36.0-46.0) % MCV (80-95) fL MCH (27.0-33.0) pg MCHC (32.0-36.0) % RDW (11.7-14.6) % Plt Count (130-400) 10^3/uL MPV (8.0-11.0) fL Immature Gran % Neutrophils % Lymphocytes % Monocytes % Eosinophils % Basophils % Nucleated RBC % % Absolute Neutrophils (1.2-6.7) 10^3/uL Absolute Lymphocytes (1.2-3.4) 10^3/uL Absolute Monocytes (0.1-0.8) 10^3/uL Absolute Eosinophils (0.0-0.7) 10^3/uL Absolute Basophils (0.0-0.2) 10^3/uL RBC Morphology Polychromasia Hypochromasia Poikilocytosis Anisocytosis Microcytosis PT (9.3-11.0) sec 11.0 INR (0.9-1.1) 1.1 APTT (21.0-27.5) sec 23.0 D-Dimer (<500) ng/mlFEU 826 H ABG Sample Site ABG pH ABG pCO2 ABG pO2 ABG HCO3 ABG Total CO2 ABG O2 Saturation ABG Base Excess VBG Lactate (0.6-1.4) mmol/L Oxygen Liter Flow FiO2 Sodium (136-145) mmol/L 132 L Potassium (3.5-5.1) mmol/L 5.7 H Chloride (98-107) mmol/L 99 Carbon Dioxide (21.0-32.0) mmol/L 16.5 L Anion Gap (3-11) mmol/L 16.5 H BUN (7-18) mg/dL 29 H Creatinine (0.55-1.02) mg/dL 1.7 H Estimated GFR/1.73 m2 (mL/min/1.73m2) 29.22 Glucose (74-106) mg/dL 550 H* Hemoglobin A1c (<5.7) % Calcium (8.5-10.1) mg/dL 8.4 L Phosphorus (2.6-4.7) mg/dL Magnesium (1.8-2.4) mg/dL 2.1 Iron (50-170) ug/dL TIBC (250-450) ug/dL Transferrin % Sat (15-50) % Ferritin Total Bilirubin (0.2-1.0) mg/dL 0.4 AST (15-37) U/L 36 ALT (14-59) U/L 85 H Alkaline Phosphatase (46-116) U/L 62 Troponin I (<or=60) ng/L 56 C-Reactive Protein (0.0-0.3) mg/dL NT-Pro-B Natriuret Pep (<300) pg/mL 14241 H Total Protein (6.4-8.2) g/dL 6.8 Albumin (3.4-5.0) g/dL 3.3 L Vitamin B12 (193-986) pg/mL Folate (8.6-20.0) ng/mL Procalcitonin ng/mL Urine Color (Yellow) Urine Clarity (Clear) Urine pH (5-8) Ur Specific [place] (1.005-1.025) Urine Protein (Negative) mg/dL Urine Ketones (Negative) mg/dL Urine Blood (Negative) Urine Nitrite (Negative) Urine Bilirubin (Negative) Urine Urobilinogen (Up TO 0.2) EU/dL Ur Leukocyte Esterase (Negative) Urine RBC (0-2) HPF Urine WBC (0-5) HPF Ur Epithelial Cells (Negative) HPF Urine Crystals (Negative) HPF Urine Bacteria (Negative) HPF Urine Casts (Negative) LPF Urine Mucus (Negative) Urine Other (Negative) Ur Culture Indicated? Urine Glucose (Negative) mg/dL Stl C.difficile Tox PCR (Negative) COVID-19 Source SARS-CoV-2 (PCR) (Negative) Influenza Type A (PCR) (Negative) Influenza Type B (PCR) (Negative) RSV (PCR) (Negative) Add-On Test Request Range/Units 08/15/21 08/15/21 08/15/21 15:50 15:50 15:58 WBC (4.4-10.8) 10^3/uL 18.63 H RBC (3.93-5.22) 10^6/uL 5.32 H Hgb (11.2-15.7) g/dL 11.6 Hct (36.0-46.0) % 42.2 MCV (80-95) fL 79.3 L MCH (27.0-33.0) pg 21.8 L MCHC (32.0-36.0) % 27.5 L RDW (11.7-14.6) % 18.3 H Plt Count (130-400) 10^3/uL 434 H MPV (8.0-11.0) fL 10.6 Immature Gran % 1.1 Neutrophils % 93.4 Lymphocytes % 3.2 Monocytes % 2.1 Eosinophils % 0.0 Basophils % 0.2 Nucleated RBC % % 0 Absolute Neutrophils (1.2-6.7) 10^3/uL 17.40 H Absolute Lymphocytes (1.2-3.4) 10^3/uL 0.60 L Absolute Monocytes (0.1-0.8) 10^3/uL 0.39 Absolute Eosinophils (0.0-0.7) 10^3/uL 0.00 Absolute Basophils (0.0-0.2) 10^3/uL 0.04 RBC Morphology See Below Polychromasia Present Hypochromasia 1+ Poikilocytosis 1+ Anisocytosis 1+ Microcytosis 1+ PT (9.3-11.0) sec INR (0.9-1.1) APTT (21.0-27.5) sec D-Dimer (<500) ng/mlFEU ABG Sample Site Cancelled ABG pH Cancelled ABG pCO2 Cancelled ABG pO2 Cancelled ABG HCO3 Cancelled ABG Total CO2 Cancelled ABG O2 Saturation Cancelled ABG Base Excess Cancelled VBG Lactate (0.6-1.4) mmol/L 9.9 H* Oxygen Liter Flow Cancelled FiO2 Cancelled Sodium (136-145) mmol/L Potassium (3.5-5.1) mmol/L Chloride (98-107) mmol/L Carbon Dioxide (21.0-32.0) mmol/L Anion Gap (3-11) mmol/L BUN (7-18) mg/dL Creatinine (0.55-1.02) mg/dL Estimated GFR/1.73 m2 (mL/min/1.73m2) Glucose (74-106) mg/dL Hemoglobin A1c (<5.7) % Calcium (8.5-10.1) mg/dL Phosphorus (2.6-4.7) mg/dL Magnesium (1.8-2.4) mg/dL Iron (50-170) ug/dL TIBC (250-450) ug/dL Transferrin % Sat (15-50) % Ferritin Total Bilirubin (0.2-1.0) mg/dL AST (15-37) U/L ALT (14-59) U/L Alkaline Phosphatase (46-116) U/L Troponin I (<or=60) ng/L C-Reactive Protein (0.0-0.3) mg/dL NT-Pro-B Natriuret Pep (<300) pg/mL Total Protein (6.4-8.2) g/dL Albumin (3.4-5.0) g/dL Vitamin B12 (193-986) pg/mL Folate (8.6-20.0) ng/mL Procalcitonin ng/mL 0.3 Urine Color (Yellow) Urine Clarity (Clear) Urine pH (5-8) Ur Specific [place] (1.005-1.025) Urine Protein (Negative) mg/dL Urine Ketones (Negative) mg/dL Urine Blood (Negative) Urine Nitrite (Negative) Urine Bilirubin (Negative) Urine Urobilinogen (Up TO 0.2) EU/dL Ur Leukocyte Esterase (Negative) Urine RBC (0-2) HPF Urine WBC (0-5) HPF Ur Epithelial Cells (Negative) HPF Urine Crystals (Negative) HPF Urine Bacteria (Negative) HPF Urine Casts (Negative) LPF Urine Mucus (Negative) Urine Other (Negative) Ur Culture Indicated? Urine Glucose (Negative) mg/dL Stl C.difficile Tox PCR (Negative) COVID-19 Source SARS-CoV-2 (PCR) (Negative) Influenza Type A (PCR) (Negative) Influenza Type B (PCR) (Negative) RSV (PCR) (Negative) Add-On Test Request Range/Units 08/15/21 08/15/21 08/15/21 16:00 18:40 19:25 WBC (4.4-10.8) 10^3/uL RBC (3.93-5.22) 10^6/uL Hgb (11.2-15.7) g/dL Hct (36.0-46.0) % MCV (80-95) fL MCH (27.0-33.0) pg MCHC (32.0-36.0) % RDW (11.7-14.6) % Plt Count (130-400) 10^3/uL MPV (8.0-11.0) fL Immature Gran % Neutrophils % Lymphocytes % Monocytes % Eosinophils % Basophils % Nucleated RBC % % Absolute Neutrophils (1.2-6.7) 10^3/uL Absolute Lymphocytes (1.2-3.4) 10^3/uL Absolute Monocytes (0.1-0.8) 10^3/uL Absolute Eosinophils (0.0-0.7) 10^3/uL Absolute Basophils (0.0-0.2) 10^3/uL RBC Morphology Polychromasia Hypochromasia Poikilocytosis Anisocytosis Microcytosis PT (9.3-11.0) sec INR (0.9-1.1) APTT (21.0-27.5) sec D-Dimer (<500) ng/mlFEU ABG Sample Site ABG pH ABG pCO2 ABG pO2 ABG HCO3 ABG Total CO2 ABG O2 Saturation ABG Base Excess VBG Lactate (0.6-1.4) mmol/L Oxygen Liter Flow FiO2 Sodium (136-145) mmol/L Potassium (3.5-5.1) mmol/L Chloride (98-107) mmol/L Carbon Dioxide (21.0-32.0) mmol/L Anion Gap (3-11) mmol/L BUN (7-18) mg/dL Creatinine (0.55-1.02) mg/dL Estimated GFR/1.73 m2 (mL/min/1.73m2) Glucose (74-106) mg/dL Hemoglobin A1c (<5.7) % Calcium (8.5-10.1) mg/dL Phosphorus (2.6-4.7) mg/dL Magnesium (1.8-2.4) mg/dL Iron (50-170) ug/dL TIBC (250-450) ug/dL Transferrin % Sat (15-50) % Ferritin Total Bilirubin (0.2-1.0) mg/dL AST (15-37) U/L ALT (14-59) U/L Alkaline Phosphatase (46-116) U/L Troponin I (<or=60) ng/L 75 H* C-Reactive Protein (0.0-0.3) mg/dL NT-Pro-B Natriuret Pep (<300) pg/mL Total Protein (6.4-8.2) g/dL Albumin (3.4-5.0) g/dL Vitamin B12 (193-986) pg/mL Folate (8.6-20.0) ng/mL Procalcitonin ng/mL Urine Color (Yellow) Yellow Urine Clarity (Clear) Clear Urine pH (5-8) 5.5 Ur Specific [place] (1.005-1.025) 1.015 Urine Protein (Negative) mg/dL Negative Urine Ketones (Negative) mg/dL Negative Urine Blood (Negative) Moderate H Urine Nitrite (Negative) Negative Urine Bilirubin (Negative) Negative Urine Urobilinogen (Up TO 0.2) EU/dL 0.2 Ur Leukocyte Esterase (Negative) Negative Urine RBC (0-2) HPF 10-20 H Urine WBC (0-5) HPF 0-2 Ur Epithelial Cells (Negative) HPF Few Urine Crystals (Negative) HPF Negative Urine Bacteria (Negative) HPF Negative Urine Casts (Negative) LPF Negative Urine Mucus (Negative) Negative Urine Other (Negative) Negative Ur Culture Indicated? No Urine Glucose (Negative) mg/dL >=1000 H Stl C.difficile Tox PCR (Negative) COVID-19 Source Nasopharynx SARS-CoV-2 (PCR) (Negative) Negative Influenza Type A (PCR) (Negative) Negative Influenza Type B (PCR) (Negative) Negative RSV (PCR) (Negative) Negative Add-On Test Request Range/Units 08/15/21 08/16/21 08/16/21 21:15 01:00 01:00 WBC (4.4-10.8) 10^3/uL RBC (3.93-5.22) 10^6/uL Hgb (11.2-15.7) g/dL Hct (36.0-46.0) % MCV (80-95) fL MCH (27.0-33.0) pg MCHC (32.0-36.0) % RDW (11.7-14.6) % Plt Count (130-400) 10^3/uL MPV (8.0-11.0) fL Immature Gran % Neutrophils % Lymphocytes % Monocytes % Eosinophils % Basophils % Nucleated RBC % % Absolute Neutrophils (1.2-6.7) 10^3/uL Absolute Lymphocytes (1.2-3.4) 10^3/uL Absolute Monocytes (0.1-0.8) 10^3/uL Absolute Eosinophils (0.0-0.7) 10^3/uL Absolute Basophils (0.0-0.2) 10^3/uL RBC Morphology Polychromasia Hypochromasia Poikilocytosis Anisocytosis Microcytosis PT (9.3-11.0) sec INR (0.9-1.1) APTT (21.0-27.5) sec D-Dimer (<500) ng/mlFEU ABG Sample Site ABG pH ABG pCO2 ABG pO2 ABG HCO3 ABG Total CO2 ABG O2 Saturation ABG Base Excess VBG Lactate (0.6-1.4) mmol/L 2.1 H Oxygen Liter Flow FiO2 Sodium (136-145) mmol/L 137 137 Potassium (3.5-5.1) mmol/L 4.5 D 4.4 Chloride (98-107) mmol/L 107 107 Carbon Dioxide (21.0-32.0) mmol/L 21.4 21.1 Anion Gap (3-11) mmol/L 8.6 8.9 BUN (7-18) mg/dL 22 H D 22 H Creatinine (0.55-1.02) mg/dL 1.0 D 1.0 Estimated GFR/1.73 m2 (mL/min/1.73m2) 53.91 53.91 Glucose (74-106) mg/dL 137 H D 116 H Hemoglobin A1c (<5.7) % Calcium (8.5-10.1) mg/dL 7.5 L 7.5 L Phosphorus (2.6-4.7) mg/dL Magnesium (1.8-2.4) mg/dL Iron (50-170) ug/dL TIBC (250-450) ug/dL Transferrin % Sat (15-50) % Ferritin Total Bilirubin (0.2-1.0) mg/dL AST (15-37) U/L ALT (14-59) U/L Alkaline Phosphatase (46-116) U/L Troponin I (<or=60) ng/L C-Reactive Protein (0.0-0.3) mg/dL NT-Pro-B Natriuret Pep (<300) pg/mL Total Protein (6.4-8.2) g/dL Albumin (3.4-5.0) g/dL Vitamin B12 (193-986) pg/mL Folate (8.6-20.0) ng/mL Procalcitonin ng/mL Urine Color (Yellow) Urine Clarity (Clear) Urine pH (5-8) Ur Specific [place] (1.005-1.025) Urine Protein (Negative) mg/dL Urine Ketones (Negative) mg/dL Urine Blood (Negative) Urine Nitrite (Negative) Urine Bilirubin (Negative) Urine Urobilinogen (Up TO 0.2) EU/dL Ur Leukocyte Esterase (Negative) Urine RBC (0-2) HPF Urine WBC (0-5) HPF Ur Epithelial Cells (Negative) HPF Urine Crystals (Negative) HPF Urine Bacteria (Negative) HPF Urine Casts (Negative) LPF Urine Mucus (Negative) Urine Other (Negative) Ur Culture Indicated? Urine Glucose (Negative) mg/dL Stl C.difficile Tox PCR (Negative) COVID-19 Source SARS-CoV-2 (PCR) (Negative) Influenza Type A (PCR) (Negative) Influenza Type B (PCR) (Negative) RSV (PCR) (Negative) Add-On Test Request Range/Units 08/16/21 08/16/21 08/16/21 06:15 06:15 06:15 WBC (4.4-10.8) 10^3/uL 17.62 H RBC (3.93-5.22) 10^6/uL 4.59 Hgb (11.2-15.7) g/dL 10.0 L Hct (36.0-46.0) % 35.6 L MCV (80-95) fL 77.6 L MCH (27.0-33.0) pg 21.8 L MCHC (32.0-36.0) % 28.1 L RDW (11.7-14.6) % 17.9 H Plt Count (130-400) 10^3/uL 308 D MPV (8.0-11.0) fL 10.1 Immature Gran % 1.1 Neutrophils % 90.5 Lymphocytes % 4.3 Monocytes % 4.0 Eosinophils % 0.0 Basophils % 0.1 Nucleated RBC % % 0 Absolute Neutrophils (1.2-6.7) 10^3/uL 15.95 H Absolute Lymphocytes (1.2-3.4) 10^3/uL 0.76 L Absolute Monocytes (0.1-0.8) 10^3/uL 0.70 Absolute Eosinophils (0.0-0.7) 10^3/uL 0.00 Absolute Basophils (0.0-0.2) 10^3/uL 0.02 RBC Morphology Polychromasia Hypochromasia Poikilocytosis Anisocytosis Microcytosis PT (9.3-11.0) sec INR (0.9-1.1) APTT (21.0-27.5) sec D-Dimer (<500) ng/mlFEU ABG Sample Site ABG pH ABG pCO2 ABG pO2 ABG HCO3 ABG Total CO2 ABG O2 Saturation ABG Base Excess VBG Lactate (0.6-1.4) mmol/L Oxygen Liter Flow FiO2 Sodium (136-145) mmol/L 140 Potassium (3.5-5.1) mmol/L 4.6 Chloride (98-107) mmol/L 107 Carbon Dioxide (21.0-32.0) mmol/L 23.0 Anion Gap (3-11) mmol/L 10.0 BUN (7-18) mg/dL 19 H Creatinine (0.55-1.02) mg/dL 1.0 Estimated GFR/1.73 m2 (mL/min/1.73m2) 53.91 Glucose (74-106) mg/dL 104 Hemoglobin A1c (<5.7) % 9.6 H Calcium (8.5-10.1) mg/dL 7.6 L Phosphorus (2.6-4.7) mg/dL Magnesium (1.8-2.4) mg/dL Iron (50-170) ug/dL TIBC (250-450) ug/dL Transferrin % Sat (15-50) % Ferritin Total Bilirubin (0.2-1.0) mg/dL AST (15-37) U/L ALT (14-59) U/L Alkaline Phosphatase (46-116) U/L Troponin I (<or=60) ng/L 96 H* C-Reactive Protein (0.0-0.3) mg/dL NT-Pro-B Natriuret Pep (<300) pg/mL Total Protein (6.4-8.2) g/dL Albumin (3.4-5.0) g/dL Vitamin B12 (193-986) pg/mL Folate (8.6-20.0) ng/mL Procalcitonin ng/mL Urine Color (Yellow) Urine Clarity (Clear) Urine pH (5-8) Ur Specific [place] (1.005-1.025) Urine Protein (Negative) mg/dL Urine Ketones (Negative) mg/dL Urine Blood (Negative) Urine Nitrite (Negative) Urine Bilirubin (Negative) Urine Urobilinogen (Up TO 0.2) EU/dL Ur Leukocyte Esterase (Negative) Urine RBC (0-2) HPF Urine WBC (0-5) HPF Ur Epithelial Cells (Negative) HPF Urine Crystals (Negative) HPF Urine Bacteria (Negative) HPF Urine Casts (Negative) LPF Urine Mucus (Negative) Urine Other (Negative) Ur Culture Indicated? Urine Glucose (Negative) mg/dL Stl C.difficile Tox PCR (Negative) COVID-19 Source SARS-CoV-2 (PCR) (Negative) Influenza Type A (PCR) (Negative) Influenza Type B (PCR) (Negative) RSV (PCR) (Negative) Add-On Test Request Range/Units 08/16/21 08/16/21 08/17/21 12:00 12:00 06:11 WBC (4.4-10.8) 10^3/uL RBC (3.93-5.22) 10^6/uL Hgb (11.2-15.7) g/dL Hct (36.0-46.0) % MCV (80-95) fL MCH (27.0-33.0) pg MCHC (32.0-36.0) % RDW (11.7-14.6) % Plt Count (130-400) 10^3/uL MPV (8.0-11.0) fL Immature Gran % Neutrophils % Lymphocytes % Monocytes % Eosinophils % Basophils % Nucleated RBC % % Absolute Neutrophils (1.2-6.7) 10^3/uL Absolute Lymphocytes (1.2-3.4) 10^3/uL Absolute Monocytes (0.1-0.8) 10^3/uL Absolute Eosinophils (0.0-0.7) 10^3/uL Absolute Basophils (0.0-0.2) 10^3/uL RBC Morphology Polychromasia Hypochromasia Poikilocytosis Anisocytosis Microcytosis PT (9.3-11.0) sec INR (0.9-1.1) APTT (21.0-27.5) sec D-Dimer (<500) ng/mlFEU ABG Sample Site ABG pH ABG pCO2 ABG pO2 ABG HCO3 ABG Total CO2 ABG O2 Saturation ABG Base Excess VBG Lactate (0.6-1.4) mmol/L Oxygen Liter Flow FiO2 Sodium (136-145) mmol/L 136 136 Potassium (3.5-5.1) mmol/L 4.4 3.8 Chloride (98-107) mmol/L 102 102 Carbon Dioxide (21.0-32.0) mmol/L 24.1 28.4 Anion Gap (3-11) mmol/L 9.9 5.6 BUN (7-18) mg/dL 22 H 31 H D Creatinine (0.55-1.02) mg/dL 1.2 H 1.3 H Estimated GFR/1.73 m2 (mL/min/1.73m2) 43.68 39.82 Glucose (74-106) mg/dL 193 H D 166 H Hemoglobin A1c (<5.7) % Calcium (8.5-10.1) mg/dL 7.9 L 7.5 L Phosphorus (2.6-4.7) mg/dL 3.9 Magnesium (1.8-2.4) mg/dL 2.0 1.9 Iron (50-170) ug/dL TIBC (250-450) ug/dL Transferrin % Sat (15-50) % Ferritin Total Bilirubin (0.2-1.0) mg/dL AST (15-37) U/L ALT (14-59) U/L Alkaline Phosphatase (46-116) U/L Troponin I (<or=60) ng/L 93 H* C-Reactive Protein (0.0-0.3) mg/dL NT-Pro-B Natriuret Pep (<300) pg/mL Total Protein (6.4-8.2) g/dL Albumin (3.4-5.0) g/dL Vitamin B12 (193-986) pg/mL Folate (8.6-20.0) ng/mL Procalcitonin ng/mL Urine Color (Yellow) Urine Clarity (Clear) Urine pH (5-8) Ur Specific [place] (1.005-1.025) Urine Protein (Negative) mg/dL Urine Ketones (Negative) mg/dL Urine Blood (Negative) Urine Nitrite (Negative) Urine Bilirubin (Negative) Urine Urobilinogen (Up TO 0.2) EU/dL Ur Leukocyte Esterase (Negative) Urine RBC (0-2) HPF Urine WBC (0-5) HPF Ur Epithelial Cells (Negative) HPF Urine Crystals (Negative) HPF Urine Bacteria (Negative) HPF Urine Casts (Negative) LPF Urine Mucus (Negative) Urine Other (Negative) Ur Culture Indicated? Urine Glucose (Negative) mg/dL Stl C.difficile Tox PCR (Negative) COVID-19 Source SARS-CoV-2 (PCR) (Negative) Influenza Type A (PCR) (Negative) Influenza Type B (PCR) (Negative) RSV (PCR) (Negative) Add-On Test Request Range/Units 08/17/21 08/18/21 08/18/21 06:11 11:00 11:00 WBC (4.4-10.8) 10^3/uL 16.64 H 24.69 H RBC (3.93-5.22) 10^6/uL 4.48 5.22 Hgb (11.2-15.7) g/dL 9.8 L 11.3 Hct (36.0-46.0) % 33.8 L 39.4 MCV (80-95) fL 75.4 L 75.5 L MCH (27.0-33.0) pg 21.9 L 21.6 L MCHC (32.0-36.0) % 29.0 L 28.7 L RDW (11.7-14.6) % 17.7 H 17.5 H Plt Count (130-400) 10^3/uL 299 391 MPV (8.0-11.0) fL 10.3 10.7 Immature Gran % 1.0 0.0 Neutrophils % 80.7 89.0 Lymphocytes % 11.2 1.0 Monocytes % 6.6 9.0 Eosinophils % 0.4 1.0 Basophils % 0.1 0.0 Nucleated RBC % % 0 0 Absolute Neutrophils (1.2-6.7) 10^3/uL 13.43 H 21.97 H Absolute Lymphocytes (1.2-3.4) 10^3/uL 1.86 0.25 L Absolute Monocytes (0.1-0.8) 10^3/uL 1.10 H 2.22 H Absolute Eosinophils (0.0-0.7) 10^3/uL 0.07 0.25 Absolute Basophils (0.0-0.2) 10^3/uL 0.02 0.00 RBC Morphology Polychromasia Present Hypochromasia 1+ Poikilocytosis Anisocytosis Microcytosis PT (9.3-11.0) sec INR (0.9-1.1) APTT (21.0-27.5) sec D-Dimer (<500) ng/mlFEU ABG Sample Site ABG pH ABG pCO2 ABG pO2 ABG HCO3 ABG Total CO2 ABG O2 Saturation ABG Base Excess VBG Lactate (0.6-1.4) mmol/L Oxygen Liter Flow FiO2 Sodium (136-145) mmol/L 132 L Potassium (3.5-5.1) mmol/L 3.5 Chloride (98-107) mmol/L 94 L Carbon Dioxide (21.0-32.0) mmol/L 28.9 Anion Gap (3-11) mmol/L 9.1 BUN (7-18) mg/dL 39 H Creatinine (0.55-1.02) mg/dL 1.3 H Estimated GFR/1.73 m2 (mL/min/1.73m2) 39.82 Glucose (74-106) mg/dL 234 H Hemoglobin A1c (<5.7) % Calcium (8.5-10.1) mg/dL 7.5 L Phosphorus (2.6-4.7) mg/dL Magnesium (1.8-2.4) mg/dL 1.8 Iron (50-170) ug/dL TIBC (250-450) ug/dL Transferrin % Sat (15-50) % Ferritin Cancelled Total Bilirubin (0.2-1.0) mg/dL AST (15-37) U/L ALT (14-59) U/L Alkaline Phosphatase (46-116) U/L Troponin I (<or=60) ng/L C-Reactive Protein (0.0-0.3) mg/dL 2.42 H NT-Pro-B Natriuret Pep (<300) pg/mL Total Protein (6.4-8.2) g/dL Albumin (3.4-5.0) g/dL Vitamin B12 (193-986) pg/mL Folate (8.6-20.0) ng/mL Procalcitonin ng/mL Urine Color (Yellow) Urine Clarity (Clear) Urine pH (5-8) Ur Specific [place] (1.005-1.025) Urine Protein (Negative) mg/dL Urine Ketones (Negative) mg/dL Urine Blood (Negative) Urine Nitrite (Negative) Urine Bilirubin (Negative) Urine Urobilinogen (Up TO 0.2) EU/dL Ur Leukocyte Esterase (Negative) Urine RBC (0-2) HPF Urine WBC (0-5) HPF Ur Epithelial Cells (Negative) HPF Urine Crystals (Negative) HPF Urine Bacteria (Negative) HPF Urine Casts (Negative) LPF Urine Mucus (Negative) Urine Other (Negative) Ur Culture Indicated? Urine Glucose (Negative) mg/dL Stl C.difficile Tox PCR (Negative) COVID-19 Source SARS-CoV-2 (PCR) (Negative) Influenza Type A (PCR) (Negative) Influenza Type B (PCR) (Negative) RSV (PCR) (Negative) Add-On Test Request Range/Units 08/18/21 08/18/21 08/18/21 11:00 11:00 11:00 WBC (4.4-10.8) 10^3/uL RBC (3.93-5.22) 10^6/uL Hgb (11.2-15.7) g/dL Hct (36.0-46.0) % MCV (80-95) fL MCH (27.0-33.0) pg MCHC (32.0-36.0) % RDW (11.7-14.6) % Plt Count (130-400) 10^3/uL MPV (8.0-11.0) fL Immature Gran % Neutrophils % Lymphocytes % Monocytes % Eosinophils % Basophils % Nucleated RBC % % Absolute Neutrophils (1.2-6.7) 10^3/uL Absolute Lymphocytes (1.2-3.4) 10^3/uL Absolute Monocytes (0.1-0.8) 10^3/uL Absolute Eosinophils (0.0-0.7) 10^3/uL Absolute Basophils (0.0-0.2) 10^3/uL RBC Morphology Polychromasia Hypochromasia Poikilocytosis Anisocytosis Microcytosis PT (9.3-11.0) sec INR (0.9-1.1) APTT (21.0-27.5) sec D-Dimer (<500) ng/mlFEU ABG Sample Site ABG pH ABG pCO2 ABG pO2 ABG HCO3 ABG Total CO2 ABG O2 Saturation ABG Base Excess VBG Lactate (0.6-1.4) mmol/L Oxygen Liter Flow FiO2 Sodium (136-145) mmol/L Potassium (3.5-5.1) mmol/L Chloride (98-107) mmol/L Carbon Dioxide (21.0-32.0) mmol/L Anion Gap (3-11) mmol/L BUN (7-18) mg/dL Creatinine (0.55-1.02) mg/dL Estimated GFR/1.73 m2 (mL/min/1.73m2) Glucose (74-106) mg/dL Hemoglobin A1c (<5.7) % Calcium (8.5-10.1) mg/dL Phosphorus (2.6-4.7) mg/dL Magnesium (1.8-2.4) mg/dL Iron (50-170) ug/dL 23 L TIBC (250-450) ug/dL 416 Transferrin % Sat (15-50) % 6 L Ferritin 22 Total Bilirubin (0.2-1.0) mg/dL AST (15-37) U/L ALT (14-59) U/L Alkaline Phosphatase (46-116) U/L Troponin I (<or=60) ng/L C-Reactive Protein (0.0-0.3) mg/dL NT-Pro-B Natriuret Pep (<300) pg/mL Total Protein (6.4-8.2) g/dL Albumin (3.4-5.0) g/dL Vitamin B12 (193-986) pg/mL 514 Folate (8.6-20.0) ng/mL 17.4 Procalcitonin ng/mL Urine Color (Yellow) Urine Clarity (Clear) Urine pH (5-8) Ur Specific [place] (1.005-1.025) Urine Protein (Negative) mg/dL Urine Ketones (Negative) mg/dL Urine Blood (Negative) Urine Nitrite (Negative) Urine Bilirubin (Negative) Urine Urobilinogen (Up TO 0.2) EU/dL Ur Leukocyte Esterase (Negative) Urine RBC (0-2) HPF Urine WBC (0-5) HPF Ur Epithelial Cells (Negative) HPF Urine Crystals (Negative) HPF Urine Bacteria (Negative) HPF Urine Casts (Negative) LPF Urine Mucus (Negative) Urine Other (Negative) Ur Culture Indicated? Urine Glucose (Negative) mg/dL Stl C.difficile Tox PCR (Negative) COVID-19 Source SARS-CoV-2 (PCR) (Negative) Influenza Type A (PCR) (Negative) Influenza Type B (PCR) (Negative) RSV (PCR) (Negative) Add-On Test Request Range/Units 08/19/21 08/19/21 08/19/21 06:15 06:15 06:15 WBC (4.4-10.8) 10^3/uL 16.78 H D RBC (3.93-5.22) 10^6/uL 5.37 H Hgb (11.2-15.7) g/dL 11.7 Hct (36.0-46.0) % 40.0 MCV (80-95) fL 74.5 L MCH (27.0-33.0) pg 21.8 L MCHC (32.0-36.0) % 29.3 L RDW (11.7-14.6) % 17.4 H Plt Count (130-400) 10^3/uL 346 MPV (8.0-11.0) fL 10.8 Immature Gran % 1.3 Neutrophils % 79.9 Lymphocytes % 8.9 Monocytes % 8.3 Eosinophils % 1.5 Basophils % 0.1 Nucleated RBC % % 0 Absolute Neutrophils (1.2-6.7) 10^3/uL 13.41 H Absolute Lymphocytes (1.2-3.4) 10^3/uL 1.49 Absolute Monocytes (0.1-0.8) 10^3/uL 1.39 H Absolute Eosinophils (0.0-0.7) 10^3/uL 0.25 Absolute Basophils (0.0-0.2) 10^3/uL 0.02 RBC Morphology Polychromasia Hypochromasia Poikilocytosis Anisocytosis Microcytosis PT (9.3-11.0) sec INR (0.9-1.1) APTT (21.0-27.5) sec D-Dimer (<500) ng/mlFEU ABG Sample Site ABG pH ABG pCO2 ABG pO2 ABG HCO3 ABG Total CO2 ABG O2 Saturation ABG Base Excess VBG Lactate (0.6-1.4) mmol/L Oxygen Liter Flow FiO2 Sodium (136-145) mmol/L 136 Potassium (3.5-5.1) mmol/L 2.8 L* Chloride (98-107) mmol/L 96 L Carbon Dioxide (21.0-32.0) mmol/L 32.1 H Anion Gap (3-11) mmol/L 7.9 BUN (7-18) mg/dL 35 H Creatinine (0.55-1.02) mg/dL 1.4 H Estimated GFR/1.73 m2 (mL/min/1.73m2) 36.56 Glucose (74-106) mg/dL 191 H Hemoglobin A1c (<5.7) % Calcium (8.5-10.1) mg/dL 7.8 L Phosphorus (2.6-4.7) mg/dL Magnesium (1.8-2.4) mg/dL Iron (50-170) ug/dL TIBC (250-450) ug/dL Transferrin % Sat (15-50) % Ferritin Total Bilirubin (0.2-1.0) mg/dL AST (15-37) U/L ALT (14-59) U/L Alkaline Phosphatase (46-116) U/L Troponin I (<or=60) ng/L C-Reactive Protein (0.0-0.3) mg/dL NT-Pro-B Natriuret Pep (<300) pg/mL 4236 H Total Protein (6.4-8.2) g/dL Albumin (3.4-5.0) g/dL Vitamin B12 (193-986) pg/mL Folate (8.6-20.0) ng/mL Procalcitonin ng/mL Urine Color (Yellow) Urine Clarity (Clear) Urine pH (5-8) Ur Specific [place] (1.005-1.025) Urine Protein (Negative) mg/dL Urine Ketones (Negative) mg/dL Urine Blood (Negative) Urine Nitrite (Negative) Urine Bilirubin (Negative) Urine Urobilinogen (Up TO 0.2) EU/dL Ur Leukocyte Esterase (Negative) Urine RBC (0-2) HPF Urine WBC (0-5) HPF Ur Epithelial Cells (Negative) HPF Urine Crystals (Negative) HPF Urine Bacteria (Negative) HPF Urine Casts (Negative) LPF Urine Mucus (Negative) Urine Other (Negative) Ur Culture Indicated? Urine Glucose (Negative) mg/dL Stl C.difficile Tox PCR (Negative) COVID-19 Source SARS-CoV-2 (PCR) (Negative) Influenza Type A (PCR) (Negative) Influenza Type B (PCR) (Negative) RSV (PCR) (Negative) Add-On Test Request DONE Range/Units 08/19/21 08/19/21 08/19/21 06:15 13:00 17:05 WBC (4.4-10.8) 10^3/uL RBC (3.93-5.22) 10^6/uL Hgb (11.2-15.7) g/dL Hct (36.0-46.0) % MCV (80-95) fL MCH (27.0-33.0) pg MCHC (32.0-36.0) % RDW (11.7-14.6) % Plt Count (130-400) 10^3/uL MPV (8.0-11.0) fL Immature Gran % Neutrophils % Lymphocytes % Monocytes % Eosinophils % Basophils % Nucleated RBC % % Absolute Neutrophils (1.2-6.7) 10^3/uL Absolute Lymphocytes (1.2-3.4) 10^3/uL Absolute Monocytes (0.1-0.8) 10^3/uL Absolute Eosinophils (0.0-0.7) 10^3/uL Absolute Basophils (0.0-0.2) 10^3/uL RBC Morphology Polychromasia Hypochromasia Poikilocytosis Anisocytosis Microcytosis PT (9.3-11.0) sec INR (0.9-1.1) APTT (21.0-27.5) sec D-Dimer (<500) ng/mlFEU ABG Sample Site ABG pH ABG pCO2 ABG pO2 ABG HCO3 ABG Total CO2 ABG O2 Saturation ABG Base Excess VBG Lactate (0.6-1.4) mmol/L Oxygen Liter Flow FiO2 Sodium (136-145) mmol/L Potassium (3.5-5.1) mmol/L 4.9 D Chloride (98-107) mmol/L Carbon Dioxide (21.0-32.0) mmol/L Anion Gap (3-11) mmol/L BUN (7-18) mg/dL Creatinine (0.55-1.02) mg/dL Estimated GFR/1.73 m2 (mL/min/1.73m2) Glucose (74-106) mg/dL Hemoglobin A1c (<5.7) % Calcium (8.5-10.1) mg/dL Phosphorus (2.6-4.7) mg/dL Magnesium (1.8-2.4) mg/dL 1.9 Iron (50-170) ug/dL TIBC (250-450) ug/dL Transferrin % Sat (15-50) % Ferritin Total Bilirubin (0.2-1.0) mg/dL AST (15-37) U/L ALT (14-59) U/L Alkaline Phosphatase (46-116) U/L Troponin I (<or=60) ng/L C-Reactive Protein (0.0-0.3) mg/dL NT-Pro-B Natriuret Pep (<300) pg/mL Total Protein (6.4-8.2) g/dL Albumin (3.4-5.0) g/dL Vitamin B12 (193-986) pg/mL Folate (8.6-20.0) ng/mL Procalcitonin ng/mL Urine Color (Yellow) Urine Clarity (Clear) Urine pH (5-8) Ur Specific [place] (1.005-1.025) Urine Protein (Negative) mg/dL Urine Ketones (Negative) mg/dL Urine Blood (Negative) Urine Nitrite (Negative) Urine Bilirubin (Negative) Urine Urobilinogen (Up TO 0.2) EU/dL Ur Leukocyte Esterase (Negative) Urine RBC (0-2) HPF Urine WBC (0-5) HPF Ur Epithelial Cells (Negative) HPF Urine Crystals (Negative) HPF Urine Bacteria (Negative) HPF Urine Casts (Negative) LPF Urine Mucus (Negative) Urine Other (Negative) Ur Culture Indicated? Urine Glucose (Negative) mg/dL Stl C.difficile Tox PCR (Negative) Negative COVID-19 Source SARS-CoV-2 (PCR) (Negative) Influenza Type A (PCR) (Negative) Influenza Type B (PCR) (Negative) RSV (PCR) (Negative) Add-On Test Request Range/Units 08/20/21 06:30 WBC (4.4-10.8) 10^3/uL RBC (3.93-5.22) 10^6/uL Hgb (11.2-15.7) g/dL Hct (36.0-46.0) % MCV (80-95) fL MCH (27.0-33.0) pg MCHC (32.0-36.0) % RDW (11.7-14.6) % Plt Count (130-400) 10^3/uL MPV (8.0-11.0) fL Immature Gran % Neutrophils % Lymphocytes % Monocytes % Eosinophils % Basophils % Nucleated RBC % % Absolute Neutrophils (1.2-6.7) 10^3/uL Absolute Lymphocytes (1.2-3.4) 10^3/uL Absolute Monocytes (0.1-0.8) 10^3/uL Absolute Eosinophils (0.0-0.7) 10^3/uL Absolute Basophils (0.0-0.2) 10^3/uL RBC Morphology Polychromasia Hypochromasia Poikilocytosis Anisocytosis Microcytosis PT (9.3-11.0) sec INR (0.9-1.1) APTT (21.0-27.5) sec D-Dimer (<500) ng/mlFEU ABG Sample Site ABG pH ABG pCO2 ABG pO2 ABG HCO3 ABG Total CO2 ABG O2 Saturation ABG Base Excess VBG Lactate (0.6-1.4) mmol/L Oxygen Liter Flow FiO2 Sodium (136-145) mmol/L 139 Potassium (3.5-5.1) mmol/L 4.3 Chloride (98-107) mmol/L 103 Carbon Dioxide (21.0-32.0) mmol/L 27.3 Anion Gap (3-11) mmol/L 8.7 BUN (7-18) mg/dL 34 H Creatinine (0.55-1.02) mg/dL 1.1 H Estimated GFR/1.73 m2 (mL/min/1.73m2) 48.29 Glucose (74-106) mg/dL 211 H Hemoglobin A1c (<5.7) % Calcium (8.5-10.1) mg/dL 7.8 L Phosphorus (2.6-4.7) mg/dL Magnesium (1.8-2.4) mg/dL Iron (50-170) ug/dL TIBC (250-450) ug/dL Transferrin % Sat (15-50) % Ferritin Total Bilirubin (0.2-1.0) mg/dL AST (15-37) U/L ALT (14-59) U/L Alkaline Phosphatase (46-116) U/L Troponin I (<or=60) ng/L C-Reactive Protein (0.0-0.3) mg/dL NT-Pro-B Natriuret Pep (<300) pg/mL Total Protein (6.4-8.2) g/dL Albumin (3.4-5.0) g/dL Vitamin B12 (193-986) pg/mL Folate (8.6-20.0) ng/mL Procalcitonin ng/mL Urine Color (Yellow) Urine Clarity (Clear) Urine pH (5-8) Ur Specific [place] (1.005-1.025) Urine Protein (Negative) mg/dL Urine Ketones (Negative) mg/dL Urine Blood (Negative) Urine Nitrite (Negative) Urine Bilirubin (Negative) Urine Urobilinogen (Up TO 0.2) EU/dL Ur Leukocyte Esterase (Negative) Urine RBC (0-2) HPF Urine WBC (0-5) HPF Ur Epithelial Cells (Negative) HPF Urine Crystals (Negative) HPF Urine Bacteria (Negative) HPF Urine Casts (Negative) LPF Urine Mucus (Negative) Urine Other (Negative) Ur Culture Indicated? Urine Glucose (Negative) mg/dL Stl C.difficile Tox PCR (Negative) COVID-19 Source SARS-CoV-2 (PCR) (Negative) Influenza Type A (PCR) (Negative) Influenza Type B (PCR) (Negative) RSV (PCR) (Negative) Add-On Test Request
--- NOTE | 2021-08-20 09:20 | PDOC.CMPRO ---
- If Service Date Differs Date of service: 08/20/21 Time of Service: 09:20 Care Management Progress Note S/O: Iza was sitting up in a chair when CM met with her. She was pleasant and agreeable to conversation. Marlen talked a bit about her family today. She has a daughter and a son and grandson who live close by. She describes her children as very supportive and helpful. She shared that sometimes her daughter will call out of the blue and tell her that she is ordering dinner out for them so that she doesn't need to cook. At other times she will bring meals and eat with her. Marlen stated that since Covid began she has hardly been out at all. She doesn't think she has been to the store in over 6 months because of her respiratory issues. She confirmed that she uses 6L of oxygen at home. A: 76 year old admitted 08/15/21 diabetic keto acidosis, respiratory failure P: Anticipate Iza will discharge home with new VNA orders through [facility] ([place]) when ready per MD. She will resume her home oxygen which is delivered through [facility]. Iza will follow up with her PCP and plan of care as prescribed and trasnsport with family .CM continues to follow.
[2021-08-20] MEDS: Insulin Aspart 300 UNITS/3 ML PEN SC ×7 (09:31→22:35)
--- NOTE | 2021-08-20 11:41 | PTTR_ITS ---
Date of service: 08/20/21 Time of Service: 11:41 PT Notes Visit Reasons: Diabetic Keto Acidosis,Respiratory failure PT Inpatient Treatment Note 08/20/2021 SUBJECTIVE: Agreeable to session. Did not initially want to use the FWW but reported momentary dizziness during the first three steps and needed to hold onto door. Patient was then agreeable to using the FWW for the rest of the walk. Looking forward to going home tomorrow. OBJECTIVE: Oxygen supplementation at 6L/min via NC. TRANSFERS: Rolling: Supervision Supine to sit: Supervision with HOB at 30 degrees Sit to stand: Standby assist STand to sit: Standby assist GAIT device: FWW Weight bearing: Full Assist: Contact-guard assist Distance: 40 feet +40 feet Deviation: Decreased morena. Initially dizzy. Bumped up oxygen supplementation from 6 L to 8 L/min via NC as patient desaturated to the high 80s but desaturated back to the 95% with rest. ASSESSMENT: Patient at this time requires the use of front wheeled walker to increase activity tolerance, conserve energy, reduce fall risk, and maximize independence. DISCHARGE RECOMMENDATIONS: [] Home with no services [] [X] Home with services. Patient will benefit from home health PT services in order to progress mobility level using least restrictive assistive ambulatory device, assess home safety, identify additional equipment needs, and establish a functional maintenance program that will increase ability of patient to remain at home. [] Home with outpatient PT [] [] SNF for continued rehabilitation [] [] Engineering Research Manager Care [] [] SNF versus LTC based on ability to participate and progress [] Treatment time: [id number] x 23 minutes beginning at 11:41 AM.
--- NOTE | 2021-08-20 12:20 | STREC_ITS ---
Date of service: 08/20/21 Time of Service: 12:20 Speech Therapy Recommendations Report ST Recommendations: Time spent: 10 minutes FLAT BREAKDOWN PROCESSOR NON-TREATMENT DISCHARGE NOTE SUBJECTIVE/OBJECTIVE/ASSESSEMENT: Contacted patient briefly to observe lunch intake. She was upgraded to regular/thins over the weekend as her pulmonary status improved, as outlined in prior FLAT BREAKDOWN PROCESSOR note. Patient without s/sx dyspnea with lunch meal this date, and reports her meals have felt more relaxed, less labored. Per RN, no observed or reported s/sx dyspnea or aspiration with PO intake. Patient has been given oxymizer, likely to d/c home with this, 6-8 L fdc. Reviewed prior recommendations as below, especially for increased frequency of oral care in setting of increased risk of aspiration-related pulmonary complication given her respiratory status. Patient confirms and is agreeable. Provided education re: when to contact FLAT BREAKDOWN PROCESSOR (as outpatient) if swallow symptoms increase (i.e., s/sx aspiration). Patient is agreeable. Given patient has met goals below and is currently tolerating diet without s/sx dyspnea or aspiration, no further FLAT BREAKDOWN PROCESSOR follow-up necessary. Please reconsult if status changes. GOALS: 1. Patient will tolerate least restrictive diet without increased s/sx dyspnea, aspiration. GOAL MET 2. Patient/caregivers will report increased frequency of oral care to BID & before/after PO intake to reduce pulmonary risks of aspiration. GOAL MET RECOMMENDATIONS: Diet Texture Modification(s): IDDSI Level(s) 7-Regular Solids 0-Thin Liquids Medication Intake: Whole with 0-Thin Liquids or 4-Extremely Thick Liquids Alter medications only as advised by MD or Pharmacist RISK MANAGEMENT: Oral hygiene BID/2x per day, and before/after PO intake using friction with toothbrush on all oral structures as tolerated HOB upright as tolerated; upright for all PO intake. Encourage physical mobility as tolerated. ? Level of Assistance/Supervision: Distant/intermittent supervision for all PO intake PO intake only when awake/alert? ? Strategies/Adaptations/Assistive Equipment: Reduce auditory and/or visual distractions when eating, Provide verbal and/or visual cues to use recommended strategies PRN, Small sips and bites when eating, Slow rate of intake ? Posture/Positioning Needs: Maintain upright position at least 30 minutes after meals ? PLAN: Discharge patient from FLAT BREAKDOWN PROCESSOR service at this time, no further FLAT BREAKDOWN PROCESSOR follow-up necessary. Patient is welcome to seek outpatient FLAT BREAKDOWN PROCESSOR referral as needed. Coding
--- NOTE | 2021-08-20 13:10 | NUR.NOTE ---
Nursing Note: Bedside ultrasound Echo in progress
--- NOTE | 2021-08-20 14:10 | PTTR_ITS ---
PT Notes Visit Reasons: Diabetic Keto Acidosis,Respiratory failure 08/20/2021 SUBJECTIVE: Feeling better than yesterday. She is hoping she can go home tomorrow. OBJECTIVE: TRANSFERS Sit to stand: SBA STand to sit: SBA GAIT device: FWW Weight bearing: Full Assist: SBA Distance: 20'x2 VITALS: 82-88% throughout of 8 L NC ASSESSMENT: Tolerates PT well today. She does feel more comfortable with the walker and I do encourage her to use her walker at home for at least a few days until she feels a little stronger, especially when she gets up to go to the bathroom in the night. She is in agreement with this. PLAN: Continue per POC. Treatment time: 15 minutes [id number] Barbara George PTA Clinic location: [facility] [place], [place]
--- NOTE | 2021-08-20 14:32 | W.PM.PROGNOT ---
Date of Service Date of service: 08/20/21 Time of Service: 14:32 Assessment and Plan Assessment and plan (1) Acute and chronic respiratory failure with hypoxia: Status: Acute Assessment and plan: Multifactorial including pneumonia, COPD, pulmonary hypertension, chronic right ventricular failure. Continue systemic antibiotics for pneumonia, steroids for COPD. diuretics that were being given for her right heart failure now remain on hold as she is now euvolemic. Continue her maintenance Stiolto Respimat however her DuoNeb was changed yesterday to prn because she does not have wheezing and this contributed to her tachycardia Case discussed w/ Dr. Dubon this morning and later her care was reviewed w/ her family while they were visiting her this afternoon. (2) Acute on chronic right-sided congestive heart failure: Status: Acute Assessment and plan: Diuretics remain on hold. At home she was on lasix 20 mg bid (not daily as listed). here she was receiving lasix 40 mg iv bid and then was changed to 40 mg po bid however she developed azotemia and orthostasis. I have kept her diuretics on hold as she seems to be euvolemic. Tomorrow, I will resume her home dose. Dr. Dubon talked about putting her on trial of treprostinil however her family believes that she was tried on this and did not tolerate d/t hypotension. Echocardiogram demonstrated the following: Conclusion Normal left ventricular wall thickness and chamber size.? Estimated ejection fraction is 60 to 65%.? Wall motion is consistent with right ventricular pressure and volume overload The right ventricle is severely dilated and hypokinetic The left atrium is normal in size The right atrium is severely dilated The aortic valve is sclerotic without stenosis or regurgitation Mitral annular calcification, trace mitral regurgitation Normal tricuspid valve with moderate regurgitation.? Estimated right ventricular systolic pressure is 74 mmHg (3) Pneumonia: Status: Acute Assessment and plan: Continue cefepime empirically for HCAP as the patient was recently hospitalized at [facility]. However will switch to oral Levaquin upon discharge to complete her course of antibiotics. I will repeat her inflammatory markers. Continue to encourage use of I-S and Acapella. Continue pulmonary treatment as listed above (4) COPD (chronic obstructive pulmonary disease): Status: Chronic Assessment and plan: Continue prednisone taper and Stiolto, and prn albuterol. (5) Pulmonary hypertension, unspecified: Status: Chronic Assessment and plan: As above. Treat right heart failure and check echocardiogram. Consider addition of an inhaled prostacyclin analog. Continue low-dose amlodipine as her systolic blood pressure will allow. Continue metoprolol Echocardiogram was done w/ above results, normal LV but severe RV dilatation and failure w/ severe PHTN. (6) Type II diabetes mellitus: Status: Chronic Assessment and plan: Patient initially presented in DKA which is since resolved. She is now on basal bolus insulin along with carbohydrate coverage. Yesterday she had hypoglycemia and I reduced her Lantus by 25%. This morning her blood sugars up to 300. I have adjusted her nighttime Lantus. I will asked that she get 30 g snack at bedtime to ensure that she does not develop nocturnal hypoglycemia. (7) JACKLYN (acute kidney injury): Status: Acute Assessment and plan: Resolving with treatment of her acute on chronic heart failure. Continue to monitor BMP (8) Microcytic anemia: Status: Acute Assessment and plan: patient has been started on GI prophylaxis w/ protonix. B12 and folate levels normal. Serum iron and transferrin saturation are low. ferritin is on the low end of normal at 22 (should be higher given her acute phase inflammation from her pneumonia). I will put her on Venofer as she has chronic constipation issues and would not tolerate po iron. (9) Chronic anticoagulation: Status: Acute Assessment and plan: Chronically on apixaban for PAD. We will continue her apixaban unless she has acute GI bleeding. (10) CAD (coronary artery disease): Status: Chronic Assessment and plan: Patient has known coronary artery disease. Last echocardiogram showed some regional wall motion abnormalities as outlined above. She had a transient rise in her troponin that was felt to be secondary to demand ischemia from her hypoxemia. Her troponin level peaked at 93 ng/L but was never rechecked to confirm that it decline. (11) PAD (peripheral artery disease): Status: Chronic Assessment and plan: Continue apixaban as above (12) DKA (diabetic ketoacidosis): Status: Resolved Assessment and plan: Resolved. Now on basal bolus insulin along with carbohydrate coverage (13) DVT prophylaxis: Status: Acute Assessment and plan: On chronic apixaban (14) Discharge planning issues: Status: Acute Assessment and plan: We will discharge home when medically stable with home health services including nursing and PT. Patient no longer needing ICU care. She was written for transfer to medical/surgical floor. Will plan for dc home tomorrow after she has her morning venofer infusion Subjective Subjective Interval history since last seen: Marlen has no acute complaints. Her breathing is much improved. No significant cough. Dyspnea is better. She is tolerating transfers and short walks around the room and around the nursing unit walking 40 ft w/ FWW. She did require increase of her oxygen from 6 lpm oxymyzer to 8 lpm Exam Narrative Exam Narrative: Elderly female sitting up in her chair visiting her son and [id number] She is alert/oriented Lungs: clear except some faint bibasilar rales Heart: regular to slightly tachycardic Abdomen: soft, nontender Legs: no edema Objective Last Vital Signs Temp 36.3 C L 08/20/21 13:02 Pulse 97 H 08/20/21 13:54 Resp 18 08/20/21 13:02 BP 93/56 L 08/20/21 13:54 Pulse Ox 88 L 08/20/21 13:55 Laboratory Results - last 24 hr 08/19/21 08/19/21 08/20/21 13:00 17:05 06:30 Sodium 139 Potassium 4.9 D 4.3 Chloride 103 Carbon Dioxide 27.3 Anion Gap 8.7 BUN 34 H Creatinine 1.1 H Estimated GFR/1.73 m2 48.29 Glucose 211 H Calcium 7.8 L Stl C.difficile Tox PCR Negative
--- NOTE | 2021-08-20 15:56 | CHAPLAIN ---
Iza was up in the chair when I visited. She was very pleasant. Her concern today is that her daughter how lives in [place] has traveled up to visit Iza, and her daughter, the the grandchildren traveling with her, are not vaccinated. They're staying with relatives in [place] right now, but plan to visit Iza in [place], where she lives. Iza said her son does not want his sister to visit because of concerns for Iza getting COVID. Iza said she doesn't know what to tell her daughter about visiting, but may let her son impose the restrictions.
[2021-08-20] MEDS: Insulin Glargine 300 UNITS/3 ML PEN 20 UNITS SC (22:34)
[2021-08-20] MEDS: Melatonin 3 MG TAB 9 MG PO (22:35)
[2021-08-21] MEDS: LORazepam 2 MG/ML VIAL 0.5 MG IVP (00:31)
[2021-08-21] MEDS: Normal Saline Flush 10 ML SYR IVP ×2 (00:32→11:02)
[2021-08-21 03:40] VITALS: BP 96/61; PULSE 94; RESP 18; TEMP 36.2; O2SAT 92
[2021-08-21] MEDS: Levothyroxine 100 MCG TAB PO (06:38)
[2021-08-21 07:11] VITALS: BP 99/64; PULSE 100; RESP 16; TEMP 36.3; O2SAT 95
[2021-08-21] MEDS: CEFEPIME 2 GM in Normal Saline 100 ML IVPB (08:36)
[2021-08-21] MEDS: Tiotropium/Olodaterol 10 PUFF INHALER 2 PUFF IH (08:36)
[2021-08-21] MEDS: Insulin Aspart 300 UNITS/3 ML PEN SC ×2 (08:37)
[2021-08-21] MEDS: amLODIPine 2.5 MG TAB PO (08:38)
[2021-08-21] MEDS: Metoprolol CR 25 MG TABCR PO (08:38)
[2021-08-21] MEDS: Apixaban 2.5 MG TAB PO (08:38)
[2021-08-21] MEDS: Cholecalciferol (Vitamin D3) 1,000 UNIT TAB 5000 UNITS PO (08:38)
[2021-08-21] MEDS: Pantoprazole 40 MG TABCR PO (08:38)
[2021-08-21] MEDS: predniSONE 10 MG TAB PO (08:38)
[2021-08-21] MEDS: Furosemide 20 MG TAB PO (08:48)
[2021-08-21] MEDS: IRON SUCROSE COMPLEX 200 MG in Normal Saline 100 ML 400 MG IVPB (09:46)
--- NOTE | 2021-08-21 10:13 | W.PM.DS.N ---
Date of service: 08/21/21 Time of Service: 10:13 DS: Diagnosis Discharge Diagnosis (1) Acute and chronic respiratory failure with hypoxia: Status: Acute Asessment and Plan: Multifactorial including COPD, HCAP, acute on chronic right heart failure. Primary etiology was felt to be acute on chronic right heart failure. Patient was kept on her Stiolto and placed on scheduled DuoNeb treatments and was given a steroid burst and taper however she never really had significant bronchospasm. CT scan of the chest showed no pulmonary embolism but suggested infiltrate in the right base. Sputum was never obtained for culture. Blood cultures came back no growth. Inflammatory markers were elevated consistent with an acute pulmonary infection with a CRP of 2.42 and a elevated white count of 18,000 and a procalcitonin of 0.3. She was treated empirically with cefepime throughout her hospital course and will be discharged on 5 days of Levaquin. Acute on chronic right heart failure was treated with IV Lasix and she was kept on her home dose of amlodipine and Toprol-XL. proBNP on admission was elevated 16,002 days prior to discharge it dropped down to 4200. Echocardiogram imaging was obtained and showed normal left ventricular size and function but showed severe RV dilatation and RV dysfunction with markedly elevated right ventricular systolic pressures of 74 mm. Patient has moderate tricuspid regurgitation and severe right atrial dilatation. Patient was initially treated with BiPAP and then transition over to high flow nasal cannula at the time of discharge was transitioned to an Oxymizer at 6 to 8 L/min. Patient was tolerating short walks for physical therapy up to 20 feet at a time with the use of a front wheel walker. Dyspnea had improved and clinical signs of right heart failure had improved to the point where she was no longer having any peripheral leg edema. Lasix had to be held for couple of days towards the end of her stay because of orthostasis. Lasix will be resumed at 20 mg twice a day. (2) Acute on chronic right-sided congestive heart failure: Status: Acute Asessment and Plan: As above. Dr. Andrade is looking into reinstituting Tyvaso. (3) Pneumonia: Status: Acute Asessment and Plan: Patient felt to have HCAP as she had a recent hospital stay at [facility]. MRSA was negative. Sputum culture was never able to be obtained. Blood cultures were no growth. Patient was treated with cefepime for 5 complete days. She will receive 5 more days of Levaquin. (4) COPD (chronic obstructive pulmonary disease): Status: Chronic Asessment and Plan: Patient will continue her home dose of Stiolto and as needed use of her leave albuterol (5) Pulmonary hypertension, unspecified: Status: Chronic (6) Type II diabetes mellitus: Status: Chronic Asessment and Plan: Patient presented in diabetic ketoacidosis which quickly resolved with IV insulin. She was switched to basal bolus insulin. Upon discharge she will resume her home dose of insulin along with her Jardiance and her Metformin. (7) JACKLYN (acute kidney injury): Status: Resolved Asessment and Plan: Acute kidney failure resolved with treatment of her acute heart failure. (8) Microcytic anemia: Status: Acute Asessment and Plan: Patient was found to have an iron deficiency microcytic anemia. She was treated with IV venofer. She will get a follow-up CBC in a week. It is recommended that she have outpatient iron infusions as needed with monitoring of her iron levels and CBCs. Patient's been intolerant of oral iron due to chronic constipation issues. Treatment of her iron deficiency anemia but maintain a hemoglobin of 10 g or greater will help with her oxygen delivery (9) Chronic anticoagulation: Status: Acute Asessment and Plan: Patient will be kept on her apixaban. 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 PT and OT are needed to improve her generalized strength that she has become weakened due to her acute illness. OT is needed to improve her ADL performance. Nursing will be needed to monitor her cardiopulmonary response to her medication changes and to assist with medication education and monitoring of labs and coordination of any order changes from her PCP or from the patient's specialist. Discharge Plan Disposition Patient Disposition: HOME W/HOME HEALTH SERVICE Condition: Improving Discharge Details Reason For Visit: Diabetic Keto Acidosis,Respiratory failure Admit Date/Time: 08/15/21 19:34 Admit Provider: Alejandro Ramesh Attending Provider: Alejandro Ramesh Primary Care Provider: Trang Blanton Hospital Course Hospital Course: 76-year-old female with history of emphysema/COPD, pulmonary hypertension, right heart failure, coronary artery disease, chronic anticoagulation, peripheral vascular disease with previous extremity bypass graft, thyroid disease, diabetes mellitus who was recently hospitalized at [facility] presented [facility] emergency department in acute respiratory distress. Patient required noninvasive positive pressure ventilation with BiPAP and was found to be in acute on chronic heart failure with a proBNP of 13,000 and also possible healthcare acquired pneumonia with an elevated lactate level of 9.9 and a procalcitonin of 0.3 she also had acute kidney injury with a creatinine 1.7. She was in diabetic ketoacidosis with a glucose of 550 and an anion gap of 16.5 and a urinalysis that showed ketones and glucose greater than 1000 mg/dL. CT of her chest showed moderate right pleural effusion severe emphysema but was negative for pulmonary embolus. She was found to have evidence of basilar pneumonia. Blood cultures were obtained and she was admitted to the intensive care unit put on cefepime, aerosolized bronchodilators and BiPAP started on insulin drip. Patient was started on diuretics for her acute on chronic heart failure and was given IV Lasix. Patient was found to have demand ischemia with elevated troponin levels that peaked at 96 ng/L. EKG demonstrated sinus tachycardia with a right bundle branch block. Echocardiogram was performed and showed normal left ventricular size and function with ejection fraction of 60 to 65%. Septal wall motion was consistent with right ventricular pressure and volume overload. RV was severely dilated and hypokinetic with an RVSP of 74 mm. Patient has severe right atrial dilatation. She has moderate tricuspid regurgitation. IVC size was normal and collapses greater than 50% with inspiration. Pulmonary consultation was obtained with Dr. Belen Andrade who saw the patient on August 16, 2021 and followed up again with the patient on 08/19/2021. See her notes for details. In essence Dr. Andrade felt that the patient's primary problem was acute on chronic heart failure from RV failure recommended diuresis to 1 to 2 L negative over 24-hour period. She agreed w/ treatment for potential HCAP as the patient had just been hospitalized in [facility]. Patient's DKA quickly resolved and patient was switched over to basal bolus insulin therapy. Patient was able to be weaned from CPAP to high flow nasal cannula although attempts were made to place her on CPAP at night. Because of anxiety issues she had trouble struggling with keeping the CPAP on. She did well with the high flow nasal cannula and eventually was weaned to an Oxymizer at 6 L/min which is her baseline oxygen requirement. Her acute kidney injury resolved although because of aggressive IV fluid hydration the patient had some mild orthostasis as well as prerenal azotemia. Her BUN and creatinine on admission had been elevated 29 and 1.7 and then resolved to a BUN of 19 and creatinine 1.0 but with further aggressive diuresis began to climb to 35-1.4. At one point she required a fluid bolus of 250 mL to treat her orthostasis. Her Lasix was placed on hold and her BUN and creatinine corrected to 34 and 1.1 prior to discharge. On discharge her lasix was resumed at 20 mg bid.Her pro-BNP which was elevated at 16,000 on admission came down to 4200 prior to discharge. Physical therapy was consulted to work w/ the patient and she was ambulating up to 20 ft x 2 sets at a time but needed 8 lpm oxygen to maintain her SPO2 at 88%. It is recommended that she continue w/ home P.T. upon discharge. With respect to her pneumonia she was kept on cefepime the entire hospital stay. Her blood cultures were no growth and her nasal swab for MRSA was negative. We never obtained a sputum culture. For her COPD she was treated w/ aerosolized bronchodilators and initially was given iv solumedrol but was then tapered on prednisone. At discharge she was on prednisone 20 mg daily for 4 days w/ 2 more days to complete at that dose before going to 10 mg daily x 4days. With respect to her pulmonary hypertension, she was kept on her amlodipine and diuretics except for a couple days at the end of her stay when diuretics were put on hold. Dr. Dubon discussed with the patient putting her on Tyvaso but will arrange this as outpatient. Home Meds and New Rx's Prescriptions: New levofloxacin 750 mg tablet 750 mg PO DAILY 5 Days Qty: 5 0RF prednisone 10 mg tablet See Rx Instructions .ROUTE .COMPLEX Qty: 8 0RF Rx Instructions: 10 mg orally 2 tabs daily x 2 days then 1 tab daily x 4days Continued acetaminophen 325 mg tablet 650 mg PO BID PRN0RF melatonin 5 mg tablet 10 mg PO HS 0RF levalbuterol tartrate [Xopenex HFA] 45 mcg/actuation HFA aerosol inhaler 2 inh inhalation Q6H Qty: 15 8RF (DME) Wheelchair light-weight, if possible See Rx Instructions .Route .MEDSUPPLY Qty: 1 0RF Rx Instructions: As directed (DME) Oxygen Tank See Rx Instructions .ROUTE .MEDSUPPLY Qty: 1 0RF Rx Instructions: Portable oxygen concentrator to administer 2ML flow (Dx J44.1, R09.02, Z99.81) cholecalciferol (vitamin D3) 125 mcg (5,000 unit) tablet 125 mcg PO DAILY 0RF metformin 500 mg tablet 500 mg PO BID Qty: 180 3RF levothyroxine 100 mcg tablet 100 mcg PO DAILY Qty: 90 3RF potassium chloride 20 mEq tablet extended release 20 meq PO DAILY Qty: 90 3RF (DME) pen needle, diabetic [BD Ultra-Fine Mini Pen Needle] 31 gauge x 3/16 needle See Rx Instructions .ROUTE .MEDSUPPLY Qty: 100 3RF Rx Instructions: for Qam Lantus injection morphine 10 mg/5 mL solution 2 mg PO Q4H MDD 10mg PRN (Reason: dyspnea) Qty: 100 0RF Rx Instructions: Trial for air hunger .. slow titration prn. Basaglar KwikPen U-100 Insulin 100 unit/mL (3 mL) insulin pen 24 unit subcut DAILY 0RF Rx Instructions: INCREASE daily insulin by 1unit each morning until fasting blood sugar consistently 100 to 150mg/dl, or you reach a maximum dose of 25units. If fasting blood sugar consistently LESS THAN 100mg/dl DECREASE dose by 1 unit each day until back in target. loperamide-simethicone 2-125 mg tablet 1 tab PO Q3H PRN0RF (DME) Oxygen Titration Qty: 1 0RF Rx Instructions: Titrate to maintain oxygen > 88% metoprolol succinate 25 mg tablet extended release 24 hr 25 mg PO DAILY 0RF nitroglycerin [Nitrostat] 0.4 mg tablet, sublingual 0.4 mg sublingual Q5M PRN0RF Rx Instructions: do not exceed 3 doses per episode Eliquis 2.5 mg tablet 2.5 mg PO BID Qty: 180 3RF Rx Instructions: Started post fem-fem bypass, [facility] (DME) lancets [Accu-Chek Softclix Lancets] Misc See Rx Instructions .ROUTE .MEDSUPPLY Qty: 100 3RF Rx Instructions: As directed, for QD blood sugar monitoring to achieve A1C under 8% (DME) lancing device with lancets [Accu-Chek Soft Dev Lancets] Kit See Rx Instructions .ROUTE .MEDSUPPLY Qty: 1 0RF Rx Instructions: As directed, for QD BS monitoring to achieve A1C under 8% (DME) blood-glucose meter Kit See Rx Instructions .ROUTE .MEDSUPPLY Qty: 1 0RF Rx Instructions: Dispense One Touch Ultra to check BS daily for DM11 E11.9 to keep A1c at or below 8 Pt not insulin dependent (DME) blood sugar diagnostic Strip See Rx Instructions .ROUTE .MEDSUPPLY Qty: 100 3RF Rx Instructions: Dispense one touch strips to check BS daily; DM 11, E11.9 to keep a1c at or under 8. Not insulin dependent Stiolto Respimat 2.5-2.5 mcg/actuation mist 2 puff inhalation DAILY Qty: 4 8RF ipratropium-albuterol 0.5 mg-3 mg(2.5 mg base)/3 mL solution for nebulization 3 ml inhalation .COMPLEX Qty: 540 12RF Hold Instructions: Patient Refused Rx Instructions: 3 mL inhalation-TAKE TWICE DAILY AND Q 4H PRN Dx J44.9 amlodipine 2.5 mg tablet See Rx Instructions .ROUTE .COMPLEX Qty: 90 3RF Dose Instruction: TAKE ONE TABLET BY MOUTH ONCE DAILY Rx Instructions: TAKE ONE TABLET BY MOUTH ONCE DAILY Jardiance 10 mg tablet See Rx Instructions .ROUTE .COMPLEX Qty: 90 1RF Dose Instruction: TAKE ONE TABLET BY MOUTH ONCE DAILY Rx Instructions: TAKE ONE TABLET BY MOUTH ONCE DAILY Changed prednisone 20 mg tablet 10 mg PO DAILY 2 Days Qty: 30 1RF Rx Instructions: for taper after [facility] ED 40mg Rx furosemide 20 mg tablet 20 mg PO BID Qty: 30 0RF Rx Instructions: Trial for fluid overload, re-check BMP ~ Apr 2021 Discontinued prednisone 10 mg tablet 10 mg PO DAILY Qty: 30 1RF Rx Instructions: For continued taper Discharge Instructions Instructions: Cor Pulmonale (DC), Bacterial Pneumonia (GEN), Chronic Lung Disease and Infection Prevention (DC), Energy Conservation Techniques (DC), Dyspnea Scale and Exercise (DC), Nutrition Guidelines for People with COPD (DC), High Flow Nasal Cannula (DC) Additional Instructions: You have an appointment on September 17 at 3:30PM with Dr. Belen Dubon at the [facility]. Please contact the clinic if you need to change this appointment [phone] You have been prescribed 5 days of Levaquin, an antibiotic. You should take this on an empty stomach (avoid dairy or antacids or yogurt within a 4 hour window before or after taking the Levaquin). You should finish all of this. You are also on a steroid taper. You are currently scheduled to take prednisone 20 mg daily for two more days then go on prednisone 10 mg daily for 4 days. Stand Alone Forms: Nursing Discharge Form Referrals: Belen Dubon MD [ [facility] STAFF PHYSICIAN] - 09/17/21 3:30 pm Trang Blanton DO [Primary Care Provider] - 08/30/21 9:00 am Activity:: Activity as Tolerated Equipment/Supplies:: No Equipment Needed Diet:: Carb Counting Discharge Orders Discharge Orders: Discharge Order (Routine); Ordered 08/21/21 Ordered By: Carter Braden Other Ambulatory Orders: Basic Metabolic Panel (Routine) Timeframe: 1 Week Facility: [facility] - Location: Laboratory Outpatient Ordered By: Carter Braden Complete Blood Count w/Diff (Routine) Timeframe: 1 Week Facility: [facility] - Location: Laboratory Outpatient Ordered By: Carter Braden DS: Summary Time Spent with Patient providing and/or coordinating discharge services: Greater than 30 minutes Specific discharge activities: Rx, education, arranging follow up tests Status at Discharge Functional status at discharge: uses cane/walker Overall status at discharge: patient is progressing back to baseline Mental Status: mental status grossly normal Speech and Movement: speech and movement normal Mood: congruent mood Affect: normal affect Exam Narrative Exam Narrative: Elderly female sitting up in her bed She is alert/oriented Lungs: clear Heart: regular to slightly tachycardic Abdomen: soft, nontender Legs: no edema Psych Mental Status: mental status grossly normal Speech and Movement: speech and movement normal Mood: congruent mood Affect: normal affect DS: Data Vitals/I&O Vitals and I&O: Vital Signs Temperature 36.3 C L 08/21/21 07:11 Temperature Source Tympanic 08/21/21 07:11 Pulse 100 H 08/21/21 07:11 Pulse Rhythm Regular 08/21/21 09:20 Pulse 102 H 08/20/21 10:00 Respiratory Rate 16 08/21/21 07:11 Respiratory Effort Short of Breath 08/21/21 09:20 Respiratory Depth Shallow 08/21/21 09:20 Respiratory Pattern Normal 08/21/21 09:20 Blood Pressure 99/64 L 08/21/21 07:11 Blood Pressure Mean 68 08/20/21 18:21 Blood Pressure Position Sitting 08/19/21 15:00 Pulse Oximetry 95 08/21/21 07:11 Oxygen Delivery Method Room Air 08/21/21 07:11 Oxygen Flow Rate 0 08/21/21 07:11 Fraction of Inspired Oxygen (FIO2) 50 08/19/21 09:44 Pain Level 0 08/20/21 23:02 Comment 08/20/21 18:25 Intake & Output 08/20/21 08/20/21 08/21/21 11:59 23:59 11:59 Intake Total 460 / 1170 710 / 1170 280 / 280 Output Total 450 / 650 200 / 650 800 / 800 Balance 10 / 520 510 / 520 -520 / -520 Weight 47.4 kg Intake: IV 100 / 130 30 / 130 100 / 100 Oral 360 / 1040 680 / 1040 180 / 180 Output: Urine 450 / 650 200 / 650 500 / 500 Stool 300 / 300 Other: Urine Color Light Melanie Yellow Urine Appearance Clear Clear Clear Urine Odor None Normal Comment Pt voiding to commode COuld not measure was mixed with stool Stool Size Large Moderate Stool Characteristics Soft Soft Voiding Methods Bedside Commode Bedside Commode Bedside Commode [facility] All Active Problems (Updated 08/21/21 @ 12:33 by Carter Braden) Medication monitoring encounter (Acute) Palliative care patient (Acute) Microcytic anemia (Acute) Lactic acidosis (Acute) Acute and chronic respiratory failure with hypoxia (Acute) Discharge planning issues (Acute) DVT prophylaxis (Acute) Pneumonia (Acute) Acute on chronic right-sided congestive heart failure (Acute) Acute respiratory distress (Acute) Elevated troponin (Acute) Abnormal PET scan of lung (Acute) (+) lung nodules, serosal implants, possible pancreatic mass 07/19/21. 2mo review by [facility] oncology to decide on chemo for possible metastatic condition. Mild cognitive impairment (Acute) Memory changes (Acute) Acute, possibly 2' steroids .. but she and family have noticed changes x months .. [ ] Neuro Pulmonary nodule (Acute) Mobility impaired (Acute) Due to SOB, Ox Dependence, Deconditioning (incl muscle loss) .. ADL are becomin glimited which is terrible for her .. she needs to return to work, errands, etc .. CAD (coronary artery disease) (Chronic) ASA Class IV per Cardio notes .. mild diffuse stenosis per [facility], 02/2021 (no stenting).. COPD (chronic obstructive pulmonary disease) (Chronic) Non-ST elevation myocardial infarction (NSTEMI) in recovery phase (Acute) Adenocarcinoma, appendix (Acute ~02/2021) Per [facility] Hem Onc note from 03/13/21 Chronic respiratory failure with hypoxia (Acute) Met w/ [facility] Pul, XXX .... Hx [facility] Pulm Cough with hemoptysis (Acute) Wedge compression fracture of first lumbar vertebra, sequela (Acute) Age-related osteoporosis with current pathological fracture, unspecified site, sequela (Acute) Myalgia (Acute) 06/12/20 [facility] Rheum Edema leg (Acute) Arteriovenous malformation (Acute 11/16/19) recommend pulmonary angiography and embolization Ray Minor MD Tinea unguium (Acute) 11/08/19 Dr Young Pulmonary hypertension, unspecified (Chronic 10/11/19) [facility]20 Echo at [facility] Hypoxia (Acute 09/06/19) Chronic anticoagulation (Acute) Supplemental oxygen dependent (Acute) Oxygen desaturation (Acute) Serious desaturations occurring with little exertion. Recomm oxygen with exertion as well as overnight, 07/2019. PAD (peripheral artery disease) (Chronic) 10/2019, [facility]. 06/17/19 [facility] Vascular, s/p fem-fem+. Numbness in right leg (Acute) Diarrhea (Acute) Improved, 05/02/21! Seems increased since chemo, but possibly due to Metformin and/or Januvia? 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 s/p surgery; chemotherapy starting 12/10/18. Elevated CEA Thrombosis (Acute) s/p fem-fem bypass graft; on eliquis Emphysema lung (Chronic) Elevated white blood cell count (Acute) Hypoglycemia (Acute) Bilateral hearing loss (Chronic) Joint disorder (Chronic) Mixed hyperlipidemia (Chronic) Hypothyroidism (Chronic) Essential hypertension (Chronic) Good BP, 10/2018. Acceptable BP off lisinopril, risk of dizziness and low BP higher than elevated BP, so monitor w/o ACEi at the moment. As health improves, hope to re-start ACEi for renal-protection as much as BP control. 12/09/18. Type II diabetes mellitus (Chronic) Medical History Cataract Chronic obstructive pulmonary disease with (acute) exacerbation 07/20/19-[facility] Hem Onc progress note.Dr. Smith (Hospitalized @ [facility], 07/04-07/07/19). [ ] APpt with [facility] Pulm (per Luis's referral). 09/06/19 [facility] Pulm - COPD Gold Stage 1 Category B 09/06/19 Echo at [facility] Diverticulitis Hospitalization or health care facility admission within last 6 months 02/2021 ([facility]?).. 03/2021 (2D ICU [facility]), then 6D [facility], d/c 04/15, reviewing in [facility], 03/17/21... Hx of fluid overload Each hospitalization has notable fluid, with use of diuretics. No LE Edema! Positive MECCA (antinuclear antibody) 06/12/20 [facility] Rheum Surgical History H/O extremity bypass graft (09/2018) Fem-Fem Bypass followed by thrombosis of graft History of fasciotomy thrombosis while in OR for appendectomy requiring thrombectomy and fasciotomy to rle. 10/07/18 [facility] History of left cataract surgery (~12/02/16) History of right cataract surgery (~2005) Family History Daughter Anemia Diabetes Hypertension Father COPD (chronic obstructive pulmonary disease) Son Diabetes Heart disease Mother CAD (coronary artery disease) Social History Smoking/Tobacco Use Status: Never Smoking risk assessment performed?: Yes Alcohol Intake: never Drug use: Never Substance use type: does not use current occupation: [employer] Do you feel safe at home: Yes Do you feel safe in your relationship?: Yes
--- NOTE | 2021-08-21 10:20 | W.PULMPROG ---
Assessment and Plan Assessment and plan (1) Acute and chronic respiratory failure with hypoxia: Status: Acute (2) Acute on chronic right-sided congestive heart failure: Status: Acute (3) COPD (chronic obstructive pulmonary disease): Status: Chronic (4) Pneumonia: Status: Acute Assessment and plan: This is a 76 yo female with a complex medical history including diabetes, pulmonary hypertension and right heart failure who was admitted to the ICU for acute on chronic hypoxic respiratory failure. 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 She is stable on oxymizer now and on her home support amount. As she has improved we will hold off on Tyvaso (particularly as it is very cumbersome to get as an inpatient). She will be covered for HAP with cefepime (negative MRSA nares) given her recent hospital stay at [place]. She will be fine for discharge on Levaquin for the remainder of her course. She will also continue the prednisone taper. Acute on chronic hypoxic respiratory failure - HFNC for sats 88-92% - will try her on oxymizer today - Incentive spirometry when able COPD - not in exacerbation currently - continue home Stiolto and prn albuterol - Duonebs prn - Taper prednisone: 20mg for 4 days, 10mg for 4 days, 5mg for 4 days RV Failure - seems to now be euvolemic - would have her on Lasix 40mg PO daily (home dose is 20mg but would increase this) - trops are down trending, no need to continue trending - BNP has decreased significantly - I will arrange follow up with me as an outpatient Pneumonia, concern for HAP - on cefepime - can switch to Levaquin for the remainder of her 7 day course - blood cultures with no growth - negative MRSA nares General Date Of Service Date of service: 08/21/21 Time of Service: 08:40 Reason for Consult: RV Failure Subjective Note Note: Iza states that she is feeling better today. Her breathing has improved. She is looking forward to going home. Exam Narrative Exam Narrative: Bedside POCUS 08/16/21: All 4 cardiac views seen will good windows LV appears to be underfilled and almost hyperdynamic. The IVC is of normal size and collapses >50% with inspiration. There are B-lines bilaterally. The RV is dilated and and significantly reduced function. The RA is enlarged as well. Const General: cooperative Nutritional Appearance: average body habitus HENMT Head: normal to inspection Mouth: oral mucosae normal Eyes Pupils: PERRL Neck Neck: normal visual inspection Resp Effort & Inspection: respiratory distress Auscultation: rales and no wheezes Cardio Rate: regular rate Rhythm: regular rhythm GI Inspection: normal to inspection Skin General skin exam: no rashes or lesions noted Neuro General: patient alert and patient awake Extrem General: normal to inspection Psych Mental Status: mental status grossly normal Objective Last Vital Signs Temp 36.3 C L 08/21/21 07:11 Pulse 100 H 08/21/21 07:11 Resp 16 08/21/21 07:11 BP 99/64 L 08/21/21 07:11 Pulse Ox 95 08/21/21 07:11 Results Medications Medications: Active Medications Generic Name Dose Route Start Last Admin Trade Name Freq PRN Reason Stop Dose Admin Acetaminophen 325 - 650 mg 08/15/21 19:38 Acetaminophen 325 Mg Tab PO Q4H PRN PRN Albuterol Sulfate 2.5 mg 08/15/21 19:33 Albuterol 2.5 Mg/3 Ml Inh Soln Vial UPD Q2H PRN PRN Albuterol/Ipratropium 3 ml 08/19/21 10:52 Albuterol/Ipratropium 3 Ml Upd Vial UPD Q4H PRN PRN Wheezing Amlodipine Besylate 2.5 mg 08/16/21 08:30 08/21/21 08:38 Amlodipine 2.5 Mg Tab PO 2.5 mg DAILY STAN Administration Apixaban 2.5 mg 08/15/21 22:00 08/21/21 08:38 Apixaban 2.5 Mg Tab PO 2.5 mg BID STAN Administration Cholecalciferol 5,000 units 08/16/21 08:30 08/21/21 08:38 Cholecalciferol (Vitamin D3) 1,000 Unit Tab PO 5,000 units DAILY STAN Administration Device 1 each 08/15/21 20:00 Inhaler, Assist Device MC DIRECTED STAN Dextrose 0 gm 08/16/21 08:17 Glucose 40% Oral Solution 15 Gm/37.5 Gm Tube PO DIRECTED PRN Dextrose/Water 0 gm 08/16/21 08:17 Dextrose 50%-Water 25 Gm/50 Ml Syr IVP DIRECTED PRN Dimethicone/Zinc Oxide 0 gm 08/15/21 19:33 Lanie Protect Cream 142 Gm Tube TP PRN PRN Furosemide 20 mg 08/21/21 08:30 08/21/21 08:48 Furosemide 20 Mg Tab PO 20 mg BID@0830,1600 [facility] Administration Heparin Sodium (Porcine) 500 units 08/21/21 10:30 Heparin 500 Units/5 Ml Syringe IVP .PER PROTOCOL [facility] Cefepime HCl 2 gm/ Sodium 100 mls @ 200 mls/hr 08/18/21 08:00 08/21/21 09:57 Chloride IVPB Infused Q24H [facility] Infusion IV Miscellaneous Supplies 1 each 08/15/21 15:45 Iv Access IV DIRECTED [facility] Insulin Aspart 0 units 08/16/21 12:00 08/21/21 08:37 Insulin Aspart 300 Units/3 Ml Pen SC 6 unit 0800,1200,1700,2200 [facility] Administration Protocol Insulin Aspart 0 units 08/18/21 08:00 08/21/21 08:37 Insulin Aspart 300 Units/3 Ml Pen SC 5 units 0800,1200,1700 [facility] Administration Insulin Glargine 20 units 08/19/21 22:00 08/20/21 22:34 Insulin Glargine 300 Units/3 Ml Pen SC 20 units HS [facility] Administration Levothyroxine Sodium 100 mcg 08/16/21 06:00 08/21/21 06:38 Levothyroxine 100 Mcg Tab PO 100 mcg 0600 [facility] Administration Lorazepam 0.5 mg 08/16/21 10:36 08/21/21 00:31 Lorazepam 2 Mg/Ml Vial IVP 0.5 mg Q6H PRN PRN Administration Melatonin 9 mg 08/16/21 22:00 08/20/21 22:35 Melatonin 3 Mg Tab PO 9 mg HS [facility] Administration Metoprolol Succinate 25 mg 08/16/21 08:30 08/21/21 08:38 Metoprolol Cr 25 Mg Tabcr PO 25 mg DAILY [facility] Administration Morphine Sulfate 5 mg 08/16/21 11:30 08/18/21 03:17 Morphine 10 Mg/5ml Soln. 5ml Cup PO 5 mg Q2H PRN PRN Administration dyspnea Pantoprazole Sodium 40 mg 08/19/21 07:30 08/21/21 08:38 Pantoprazole 40 Mg Tabcr PO 40 mg DAILY@0730 STAN Administration Polyethylene Glycol 17 gm 08/19/21 12:52 Polyethylene Glycol 3350 17 Gm Packet PO DAILY PRN PRN constipation Potassium Chloride 20 meq 08/19/21 20:00 08/19/21 20:03 Potassium Chloride 10 Meq Capcr PO 20 meq BID STAN Administration Prednisone 10 mg 08/20/21 08:30 08/21/21 08:38 Prednisone 10 Mg Tab PO 08/23/21 09:00 10 mg DAILY STAN Administration Sodium Chloride 0 ml 08/15/21 18:23 08/21/21 00:32 Normal Saline Flush 10 Ml Syr IVP 10 ml PRN PRN Administration Tiotropium [place]/Olodaterol 2 puff 08/16/21 08:30 08/21/21 08:36 Tiotropium/Olodaterol 10 Puff Inhaler IH 2 puff DAILY STAN Administration Allergies Penicillins Allergy (Unknown, Verified 08/13/21 14:14) Influenza Virus Vaccines Adverse Reaction (Mild, Verified 07/10/21 08:49) cellulitis Labs Result Diagrams: 08/19/21 06:15 08/20/21 06:30 Labs: 08/15/21 17:00 Blood Blood Culture - Final NO GROWTH 120 HOURS 08/15/21 17:00 Blood Blood Culture - Final NO GROWTH 120 HOURS 08/19/21 13:00 Stool Lactoferrin Latex Agglutination - Final 08/16/21 18:45 Nose MRSA Screen - Final Laboratory Tests Range/Units 08/15/21 08/15/21 08/15/21 15:50 15:50 15:50 WBC (4.4-10.8) 10^3/uL RBC (3.93-5.22) 10^6/uL Hgb (11.2-15.7) g/dL Hct (36.0-46.0) % MCV (80-95) fL MCH (27.0-33.0) pg MCHC (32.0-36.0) % RDW (11.7-14.6) % Plt Count (130-400) 10^3/uL MPV (8.0-11.0) fL Immature Gran % Neutrophils % Lymphocytes % Monocytes % Eosinophils % Basophils % Nucleated RBC % % Absolute Neutrophils (1.2-6.7) 10^3/uL Absolute Lymphocytes (1.2-3.4) 10^3/uL Absolute Monocytes (0.1-0.8) 10^3/uL Absolute Eosinophils (0.0-0.7) 10^3/uL Absolute Basophils (0.0-0.2) 10^3/uL RBC Morphology Polychromasia Hypochromasia Poikilocytosis Anisocytosis Microcytosis PT (9.3-11.0) sec 11.0 INR (0.9-1.1) 1.1 APTT (21.0-27.5) sec 23.0 D-Dimer (<500) ng/mlFEU 826 H ABG Sample Site ABG pH ABG pCO2 ABG pO2 ABG HCO3 ABG Total CO2 ABG O2 Saturation ABG Base Excess VBG Lactate (0.6-1.4) mmol/L Oxygen Liter Flow FiO2 Sodium (136-145) mmol/L 132 L Potassium (3.5-5.1) mmol/L 5.7 H Chloride (98-107) mmol/L 99 Carbon Dioxide (21.0-32.0) mmol/L 16.5 L Anion Gap (3-11) mmol/L 16.5 H BUN (7-18) mg/dL 29 H Creatinine (0.55-1.02) mg/dL 1.7 H Estimated GFR/1.73 m2 (mL/min/1.73m2) 29.22 Glucose (74-106) mg/dL 550 H* Hemoglobin A1c (<5.7) % Calcium (8.5-10.1) mg/dL 8.4 L Phosphorus (2.6-4.7) mg/dL Magnesium (1.8-2.4) mg/dL 2.1 Iron (50-170) ug/dL TIBC (250-450) ug/dL Transferrin % Sat (15-50) % Ferritin Total Bilirubin (0.2-1.0) mg/dL 0.4 AST (15-37) U/L 36 ALT (14-59) U/L 85 H Alkaline Phosphatase (46-116) U/L 62 Troponin I (<or=60) ng/L 56 C-Reactive Protein (0.0-0.3) mg/dL NT-Pro-B Natriuret Pep (<300) pg/mL 46928 H Total Protein (6.4-8.2) g/dL 6.8 Albumin (3.4-5.0) g/dL 3.3 L Vitamin B12 (193-986) pg/mL Folate (8.6-20.0) ng/mL Procalcitonin ng/mL Urine Color (Yellow) Urine Clarity (Clear) Urine pH (5-8) Ur Specific [place] (1.005-1.025) Urine Protein (Negative) mg/dL Urine Ketones (Negative) mg/dL Urine Blood (Negative) Urine Nitrite (Negative) Urine Bilirubin (Negative) Urine Urobilinogen (Up TO 0.2) EU/dL Ur Leukocyte Esterase (Negative) Urine RBC (0-2) HPF Urine WBC (0-5) HPF Ur Epithelial Cells (Negative) HPF Urine Crystals (Negative) HPF Urine Bacteria (Negative) HPF Urine Casts (Negative) LPF Urine Mucus (Negative) Urine Other (Negative) Ur Culture Indicated? Urine Glucose (Negative) mg/dL Stl C.difficile Tox PCR (Negative) COVID-19 Source SARS-CoV-2 (PCR) (Negative) Influenza Type A (PCR) (Negative) Influenza Type B (PCR) (Negative) RSV (PCR) (Negative) Add-On Test Request Range/Units 08/15/21 08/15/21 08/15/21 15:50 15:50 15:58 WBC (4.4-10.8) 10^3/uL 18.63 H RBC (3.93-5.22) 10^6/uL 5.32 H Hgb (11.2-15.7) g/dL 11.6 Hct (36.0-46.0) % 42.2 MCV (80-95) fL 79.3 L MCH (27.0-33.0) pg 21.8 L MCHC (32.0-36.0) % 27.5 L RDW (11.7-14.6) % 18.3 H Plt Count (130-400) 10^3/uL 434 H MPV (8.0-11.0) fL 10.6 Immature Gran % 1.1 Neutrophils % 93.4 Lymphocytes % 3.2 Monocytes % 2.1 Eosinophils % 0.0 Basophils % 0.2 Nucleated RBC % % 0 Absolute Neutrophils (1.2-6.7) 10^3/uL 17.40 H Absolute Lymphocytes (1.2-3.4) 10^3/uL 0.60 L Absolute Monocytes (0.1-0.8) 10^3/uL 0.39 Absolute Eosinophils (0.0-0.7) 10^3/uL 0.00 Absolute Basophils (0.0-0.2) 10^3/uL 0.04 RBC Morphology See Below Polychromasia Present Hypochromasia 1+ Poikilocytosis 1+ Anisocytosis 1+ Microcytosis 1+ PT (9.3-11.0) sec INR (0.9-1.1) APTT (21.0-27.5) sec D-Dimer (<500) ng/mlFEU ABG Sample Site Cancelled ABG pH Cancelled ABG pCO2 Cancelled ABG pO2 Cancelled ABG HCO3 Cancelled ABG Total CO2 Cancelled ABG O2 Saturation Cancelled ABG Base Excess Cancelled VBG Lactate (0.6-1.4) mmol/L 9.9 H* Oxygen Liter Flow Cancelled FiO2 Cancelled Sodium (136-145) mmol/L Potassium (3.5-5.1) mmol/L Chloride (98-107) mmol/L Carbon Dioxide (21.0-32.0) mmol/L Anion Gap (3-11) mmol/L BUN (7-18) mg/dL Creatinine (0.55-1.02) mg/dL Estimated GFR/1.73 m2 (mL/min/1.73m2) Glucose (74-106) mg/dL Hemoglobin A1c (<5.7) % Calcium (8.5-10.1) mg/dL Phosphorus (2.6-4.7) mg/dL Magnesium (1.8-2.4) mg/dL Iron (50-170) ug/dL TIBC (250-450) ug/dL Transferrin % Sat (15-50) % Ferritin Total Bilirubin (0.2-1.0) mg/dL AST (15-37) U/L ALT (14-59) U/L Alkaline Phosphatase (46-116) U/L Troponin I (<or=60) ng/L C-Reactive Protein (0.0-0.3) mg/dL NT-Pro-B Natriuret Pep (<300) pg/mL Total Protein (6.4-8.2) g/dL Albumin (3.4-5.0) g/dL Vitamin B12 (193-986) pg/mL Folate (8.6-20.0) ng/mL Procalcitonin ng/mL 0.3 Urine Color (Yellow) Urine Clarity (Clear) Urine pH (5-8) Ur Specific [place] (1.005-1.025) Urine Protein (Negative) mg/dL Urine Ketones (Negative) mg/dL Urine Blood (Negative) Urine Nitrite (Negative) Urine Bilirubin (Negative) Urine Urobilinogen (Up TO 0.2) EU/dL Ur Leukocyte Esterase (Negative) Urine RBC (0-2) HPF Urine WBC (0-5) HPF Ur Epithelial Cells (Negative) HPF Urine Crystals (Negative) HPF Urine Bacteria (Negative) HPF Urine Casts (Negative) LPF Urine Mucus (Negative) Urine Other (Negative) Ur Culture Indicated? Urine Glucose (Negative) mg/dL Stl C.difficile Tox PCR (Negative) COVID-19 Source SARS-CoV-2 (PCR) (Negative) Influenza Type A (PCR) (Negative) Influenza Type B (PCR) (Negative) RSV (PCR) (Negative) Add-On Test Request Range/Units 08/15/21 08/15/21 08/15/21 16:00 18:40 19:25 WBC (4.4-10.8) 10^3/uL RBC (3.93-5.22) 10^6/uL Hgb (11.2-15.7) g/dL Hct (36.0-46.0) % MCV (80-95) fL MCH (27.0-33.0) pg MCHC (32.0-36.0) % RDW (11.7-14.6) % Plt Count (130-400) 10^3/uL MPV (8.0-11.0) fL Immature Gran % Neutrophils % Lymphocytes % Monocytes % Eosinophils % Basophils % Nucleated RBC % % Absolute Neutrophils (1.2-6.7) 10^3/uL Absolute Lymphocytes (1.2-3.4) 10^3/uL Absolute Monocytes (0.1-0.8) 10^3/uL Absolute Eosinophils (0.0-0.7) 10^3/uL Absolute Basophils (0.0-0.2) 10^3/uL RBC Morphology Polychromasia Hypochromasia Poikilocytosis Anisocytosis Microcytosis PT (9.3-11.0) sec INR (0.9-1.1) APTT (21.0-27.5) sec D-Dimer (<500) ng/mlFEU ABG Sample Site ABG pH ABG pCO2 ABG pO2 ABG HCO3 ABG Total CO2 ABG O2 Saturation ABG Base Excess VBG Lactate (0.6-1.4) mmol/L Oxygen Liter Flow FiO2 Sodium (136-145) mmol/L Potassium (3.5-5.1) mmol/L Chloride (98-107) mmol/L Carbon Dioxide (21.0-32.0) mmol/L Anion Gap (3-11) mmol/L BUN (7-18) mg/dL Creatinine (0.55-1.02) mg/dL Estimated GFR/1.73 m2 (mL/min/1.73m2) Glucose (74-106) mg/dL Hemoglobin A1c (<5.7) % Calcium (8.5-10.1) mg/dL Phosphorus (2.6-4.7) mg/dL Magnesium (1.8-2.4) mg/dL Iron (50-170) ug/dL TIBC (250-450) ug/dL Transferrin % Sat (15-50) % Ferritin Total Bilirubin (0.2-1.0) mg/dL AST (15-37) U/L ALT (14-59) U/L Alkaline Phosphatase (46-116) U/L Troponin I (<or=60) ng/L 75 H* C-Reactive Protein (0.0-0.3) mg/dL NT-Pro-B Natriuret Pep (<300) pg/mL Total Protein (6.4-8.2) g/dL Albumin (3.4-5.0) g/dL Vitamin B12 (193-986) pg/mL Folate (8.6-20.0) ng/mL Procalcitonin ng/mL Urine Color (Yellow) Yellow Urine Clarity (Clear) Clear Urine pH (5-8) 5.5 Ur Specific [place] (1.005-1.025) 1.015 Urine Protein (Negative) mg/dL Negative Urine Ketones (Negative) mg/dL Negative Urine Blood (Negative) Moderate H Urine Nitrite (Negative) Negative Urine Bilirubin (Negative) Negative Urine Urobilinogen (Up TO 0.2) EU/dL 0.2 Ur Leukocyte Esterase (Negative) Negative Urine RBC (0-2) HPF 10-20 H Urine WBC (0-5) HPF 0-2 Ur Epithelial Cells (Negative) HPF Few Urine Crystals (Negative) HPF Negative Urine Bacteria (Negative) HPF Negative Urine Casts (Negative) LPF Negative Urine Mucus (Negative) Negative Urine Other (Negative) Negative Ur Culture Indicated? No Urine Glucose (Negative) mg/dL >=1000 H Stl C.difficile Tox PCR (Negative) COVID-19 Source Nasopharynx SARS-CoV-2 (PCR) (Negative) Negative Influenza Type A (PCR) (Negative) Negative Influenza Type B (PCR) (Negative) Negative RSV (PCR) (Negative) Negative Add-On Test Request Range/Units 08/15/21 08/16/21 08/16/21 21:15 01:00 01:00 WBC (4.4-10.8) 10^3/uL RBC (3.93-5.22) 10^6/uL Hgb (11.2-15.7) g/dL Hct (36.0-46.0) % MCV (80-95) fL MCH (27.0-33.0) pg MCHC (32.0-36.0) % RDW (11.7-14.6) % Plt Count (130-400) 10^3/uL MPV (8.0-11.0) fL Immature Gran % Neutrophils % Lymphocytes % Monocytes % Eosinophils % Basophils % Nucleated RBC % % Absolute Neutrophils (1.2-6.7) 10^3/uL Absolute Lymphocytes (1.2-3.4) 10^3/uL Absolute Monocytes (0.1-0.8) 10^3/uL Absolute Eosinophils (0.0-0.7) 10^3/uL Absolute Basophils (0.0-0.2) 10^3/uL RBC Morphology Polychromasia Hypochromasia Poikilocytosis Anisocytosis Microcytosis PT (9.3-11.0) sec INR (0.9-1.1) APTT (21.0-27.5) sec D-Dimer (<500) ng/mlFEU ABG Sample Site ABG pH ABG pCO2 ABG pO2 ABG HCO3 ABG Total CO2 ABG O2 Saturation ABG Base Excess VBG Lactate (0.6-1.4) mmol/L 2.1 H Oxygen Liter Flow FiO2 Sodium (136-145) mmol/L 137 137 Potassium (3.5-5.1) mmol/L 4.5 D 4.4 Chloride (98-107) mmol/L 107 107 Carbon Dioxide (21.0-32.0) mmol/L 21.4 21.1 Anion Gap (3-11) mmol/L 8.6 8.9 BUN (7-18) mg/dL 22 H D 22 H Creatinine (0.55-1.02) mg/dL 1.0 D 1.0 Estimated GFR/1.73 m2 (mL/min/1.73m2) 53.91 53.91 Glucose (74-106) mg/dL 137 H D 116 H Hemoglobin A1c (<5.7) % Calcium (8.5-10.1) mg/dL 7.5 L 7.5 L Phosphorus (2.6-4.7) mg/dL Magnesium (1.8-2.4) mg/dL Iron (50-170) ug/dL TIBC (250-450) ug/dL Transferrin % Sat (15-50) % Ferritin Total Bilirubin (0.2-1.0) mg/dL AST (15-37) U/L ALT (14-59) U/L Alkaline Phosphatase (46-116) U/L Troponin I (<or=60) ng/L C-Reactive Protein (0.0-0.3) mg/dL NT-Pro-B Natriuret Pep (<300) pg/mL Total Protein (6.4-8.2) g/dL Albumin (3.4-5.0) g/dL Vitamin B12 (193-986) pg/mL Folate (8.6-20.0) ng/mL Procalcitonin ng/mL Urine Color (Yellow) Urine Clarity (Clear) Urine pH (5-8) Ur Specific [place] (1.005-1.025) Urine Protein (Negative) mg/dL Urine Ketones (Negative) mg/dL Urine Blood (Negative) Urine Nitrite (Negative) Urine Bilirubin (Negative) Urine Urobilinogen (Up TO 0.2) EU/dL Ur Leukocyte Esterase (Negative) Urine RBC (0-2) HPF Urine WBC (0-5) HPF Ur Epithelial Cells (Negative) HPF Urine Crystals (Negative) HPF Urine Bacteria (Negative) HPF Urine Casts (Negative) LPF Urine Mucus (Negative) Urine Other (Negative) Ur Culture Indicated? Urine Glucose (Negative) mg/dL Stl C.difficile Tox PCR (Negative) COVID-19 Source SARS-CoV-2 (PCR) (Negative) Influenza Type A (PCR) (Negative) Influenza Type B (PCR) (Negative) RSV (PCR) (Negative) Add-On Test Request Range/Units 08/16/21 08/16/21 08/16/21 06:15 06:15 06:15 WBC (4.4-10.8) 10^3/uL 17.62 H RBC (3.93-5.22) 10^6/uL 4.59 Hgb (11.2-15.7) g/dL 10.0 L Hct (36.0-46.0) % 35.6 L MCV (80-95) fL 77.6 L MCH (27.0-33.0) pg 21.8 L MCHC (32.0-36.0) % 28.1 L RDW (11.7-14.6) % 17.9 H Plt Count (130-400) 10^3/uL 308 D MPV (8.0-11.0) fL 10.1 Immature Gran % 1.1 Neutrophils % 90.5 Lymphocytes % 4.3 Monocytes % 4.0 Eosinophils % 0.0 Basophils % 0.1 Nucleated RBC % % 0 Absolute Neutrophils (1.2-6.7) 10^3/uL 15.95 H Absolute Lymphocytes (1.2-3.4) 10^3/uL 0.76 L Absolute Monocytes (0.1-0.8) 10^3/uL 0.70 Absolute Eosinophils (0.0-0.7) 10^3/uL 0.00 Absolute Basophils (0.0-0.2) 10^3/uL 0.02 RBC Morphology Polychromasia Hypochromasia Poikilocytosis Anisocytosis Microcytosis PT (9.3-11.0) sec INR (0.9-1.1) APTT (21.0-27.5) sec D-Dimer (<500) ng/mlFEU ABG Sample Site ABG pH ABG pCO2 ABG pO2 ABG HCO3 ABG Total CO2 ABG O2 Saturation ABG Base Excess VBG Lactate (0.6-1.4) mmol/L Oxygen Liter Flow FiO2 Sodium (136-145) mmol/L 140 Potassium (3.5-5.1) mmol/L 4.6 Chloride (98-107) mmol/L 107 Carbon Dioxide (21.0-32.0) mmol/L 23.0 Anion Gap (3-11) mmol/L 10.0 BUN (7-18) mg/dL 19 H Creatinine (0.55-1.02) mg/dL 1.0 Estimated GFR/1.73 m2 (mL/min/1.73m2) 53.91 Glucose (74-106) mg/dL 104 Hemoglobin A1c (<5.7) % 9.6 H Calcium (8.5-10.1) mg/dL 7.6 L Phosphorus (2.6-4.7) mg/dL Magnesium (1.8-2.4) mg/dL Iron (50-170) ug/dL TIBC (250-450) ug/dL Transferrin % Sat (15-50) % Ferritin Total Bilirubin (0.2-1.0) mg/dL AST (15-37) U/L ALT (14-59) U/L Alkaline Phosphatase (46-116) U/L Troponin I (<or=60) ng/L 96 H* C-Reactive Protein (0.0-0.3) mg/dL NT-Pro-B Natriuret Pep (<300) pg/mL Total Protein (6.4-8.2) g/dL Albumin (3.4-5.0) g/dL Vitamin B12 (193-986) pg/mL Folate (8.6-20.0) ng/mL Procalcitonin ng/mL Urine Color (Yellow) Urine Clarity (Clear) Urine pH (5-8) Ur Specific [place] (1.005-1.025) Urine Protein (Negative) mg/dL Urine Ketones (Negative) mg/dL Urine Blood (Negative) Urine Nitrite (Negative) Urine Bilirubin (Negative) Urine Urobilinogen (Up TO 0.2) EU/dL Ur Leukocyte Esterase (Negative) Urine RBC (0-2) HPF Urine WBC (0-5) HPF Ur Epithelial Cells (Negative) HPF Urine Crystals (Negative) HPF Urine Bacteria (Negative) HPF Urine Casts (Negative) LPF Urine Mucus (Negative) Urine Other (Negative) Ur Culture Indicated? Urine Glucose (Negative) mg/dL Stl C.difficile Tox PCR (Negative) COVID-19 Source SARS-CoV-2 (PCR) (Negative) Influenza Type A (PCR) (Negative) Influenza Type B (PCR) (Negative) RSV (PCR) (Negative) Add-On Test Request Range/Units 08/16/21 08/16/21 08/17/21 12:00 12:00 06:11 WBC (4.4-10.8) 10^3/uL RBC (3.93-5.22) 10^6/uL Hgb (11.2-15.7) g/dL Hct (36.0-46.0) % MCV (80-95) fL MCH (27.0-33.0) pg MCHC (32.0-36.0) % RDW (11.7-14.6) % Plt Count (130-400) 10^3/uL MPV (8.0-11.0) fL Immature Gran % Neutrophils % Lymphocytes % Monocytes % Eosinophils % Basophils % Nucleated RBC % % Absolute Neutrophils (1.2-6.7) 10^3/uL Absolute Lymphocytes (1.2-3.4) 10^3/uL Absolute Monocytes (0.1-0.8) 10^3/uL Absolute Eosinophils (0.0-0.7) 10^3/uL Absolute Basophils (0.0-0.2) 10^3/uL RBC Morphology Polychromasia Hypochromasia Poikilocytosis Anisocytosis Microcytosis PT (9.3-11.0) sec INR (0.9-1.1) APTT (21.0-27.5) sec D-Dimer (<500) ng/mlFEU ABG Sample Site ABG pH ABG pCO2 ABG pO2 ABG HCO3 ABG Total CO2 ABG O2 Saturation ABG Base Excess VBG Lactate (0.6-1.4) mmol/L Oxygen Liter Flow FiO2 Sodium (136-145) mmol/L 136 136 Potassium (3.5-5.1) mmol/L 4.4 3.8 Chloride (98-107) mmol/L 102 102 Carbon Dioxide (21.0-32.0) mmol/L 24.1 28.4 Anion Gap (3-11) mmol/L 9.9 5.6 BUN (7-18) mg/dL 22 H 31 H D Creatinine (0.55-1.02) mg/dL 1.2 H 1.3 H Estimated GFR/1.73 m2 (mL/min/1.73m2) 43.68 39.82 Glucose (74-106) mg/dL 193 H D 166 H Hemoglobin A1c (<5.7) % Calcium (8.5-10.1) mg/dL 7.9 L 7.5 L Phosphorus (2.6-4.7) mg/dL 3.9 Magnesium (1.8-2.4) mg/dL 2.0 1.9 Iron (50-170) ug/dL TIBC (250-450) ug/dL Transferrin % Sat (15-50) % Ferritin Total Bilirubin (0.2-1.0) mg/dL AST (15-37) U/L ALT (14-59) U/L Alkaline Phosphatase (46-116) U/L Troponin I (<or=60) ng/L 93 H* C-Reactive Protein (0.0-0.3) mg/dL NT-Pro-B Natriuret Pep (<300) pg/mL Total Protein (6.4-8.2) g/dL Albumin (3.4-5.0) g/dL Vitamin B12 (193-986) pg/mL Folate (8.6-20.0) ng/mL Procalcitonin ng/mL Urine Color (Yellow) Urine Clarity (Clear) Urine pH (5-8) Ur Specific [place] (1.005-1.025) Urine Protein (Negative) mg/dL Urine Ketones (Negative) mg/dL Urine Blood (Negative) Urine Nitrite (Negative) Urine Bilirubin (Negative) Urine Urobilinogen (Up TO 0.2) EU/dL Ur Leukocyte Esterase (Negative) Urine RBC (0-2) HPF Urine WBC (0-5) HPF Ur Epithelial Cells (Negative) HPF Urine Crystals (Negative) HPF Urine Bacteria (Negative) HPF Urine Casts (Negative) LPF Urine Mucus (Negative) Urine Other (Negative) Ur Culture Indicated? Urine Glucose (Negative) mg/dL Stl C.difficile Tox PCR (Negative) COVID-19 Source SARS-CoV-2 (PCR) (Negative) Influenza Type A (PCR) (Negative) Influenza Type B (PCR) (Negative) RSV (PCR) (Negative) Add-On Test Request Range/Units 08/17/21 08/18/21 08/18/21 06:11 11:00 11:00 WBC (4.4-10.8) 10^3/uL 16.64 H 24.69 H RBC (3.93-5.22) 10^6/uL 4.48 5.22 Hgb (11.2-15.7) g/dL 9.8 L 11.3 Hct (36.0-46.0) % 33.8 L 39.4 MCV (80-95) fL 75.4 L 75.5 L MCH (27.0-33.0) pg 21.9 L 21.6 L MCHC (32.0-36.0) % 29.0 L 28.7 L RDW (11.7-14.6) % 17.7 H 17.5 H Plt Count (130-400) 10^3/uL 299 391 MPV (8.0-11.0) fL 10.3 10.7 Immature Gran % 1.0 0.0 Neutrophils % 80.7 89.0 Lymphocytes % 11.2 1.0 Monocytes % 6.6 9.0 Eosinophils % 0.4 1.0 Basophils % 0.1 0.0 Nucleated RBC % % 0 0 Absolute Neutrophils (1.2-6.7) 10^3/uL 13.43 H 21.97 H Absolute Lymphocytes (1.2-3.4) 10^3/uL 1.86 0.25 L Absolute Monocytes (0.1-0.8) 10^3/uL 1.10 H 2.22 H Absolute Eosinophils (0.0-0.7) 10^3/uL 0.07 0.25 Absolute Basophils (0.0-0.2) 10^3/uL 0.02 0.00 RBC Morphology Polychromasia Present Hypochromasia 1+ Poikilocytosis Anisocytosis Microcytosis PT (9.3-11.0) sec INR (0.9-1.1) APTT (21.0-27.5) sec D-Dimer (<500) ng/mlFEU ABG Sample Site ABG pH ABG pCO2 ABG pO2 ABG HCO3 ABG Total CO2 ABG O2 Saturation ABG Base Excess VBG Lactate (0.6-1.4) mmol/L Oxygen Liter Flow FiO2 Sodium (136-145) mmol/L 132 L Potassium (3.5-5.1) mmol/L 3.5 Chloride (98-107) mmol/L 94 L Carbon Dioxide (21.0-32.0) mmol/L 28.9 Anion Gap (3-11) mmol/L 9.1 BUN (7-18) mg/dL 39 H Creatinine (0.55-1.02) mg/dL 1.3 H Estimated GFR/1.73 m2 (mL/min/1.73m2) 39.82 Glucose (74-106) mg/dL 234 H Hemoglobin A1c (<5.7) % Calcium (8.5-10.1) mg/dL 7.5 L Phosphorus (2.6-4.7) mg/dL Magnesium (1.8-2.4) mg/dL 1.8 Iron (50-170) ug/dL TIBC (250-450) ug/dL Transferrin % Sat (15-50) % Ferritin Cancelled Total Bilirubin (0.2-1.0) mg/dL AST (15-37) U/L ALT (14-59) U/L Alkaline Phosphatase (46-116) U/L Troponin I (<or=60) ng/L C-Reactive Protein (0.0-0.3) mg/dL 2.42 H NT-Pro-B Natriuret Pep (<300) pg/mL Total Protein (6.4-8.2) g/dL Albumin (3.4-5.0) g/dL Vitamin B12 (193-986) pg/mL Folate (8.6-20.0) ng/mL Procalcitonin ng/mL Urine Color (Yellow) Urine Clarity (Clear) Urine pH (5-8) Ur Specific [place] (1.005-1.025) Urine Protein (Negative) mg/dL Urine Ketones (Negative) mg/dL Urine Blood (Negative) Urine Nitrite (Negative) Urine Bilirubin (Negative) Urine Urobilinogen (Up TO 0.2) EU/dL Ur Leukocyte Esterase (Negative) Urine RBC (0-2) HPF Urine WBC (0-5) HPF Ur Epithelial Cells (Negative) HPF Urine Crystals (Negative) HPF Urine Bacteria (Negative) HPF Urine Casts (Negative) LPF Urine Mucus (Negative) Urine Other (Negative) Ur Culture Indicated? Urine Glucose (Negative) mg/dL Stl C.difficile Tox PCR (Negative) COVID-19 Source SARS-CoV-2 (PCR) (Negative) Influenza Type A (PCR) (Negative) Influenza Type B (PCR) (Negative) RSV (PCR) (Negative) Add-On Test Request Range/Units 08/18/21 08/18/21 08/18/21 11:00 11:00 11:00 WBC (4.4-10.8) 10^3/uL RBC (3.93-5.22) 10^6/uL Hgb (11.2-15.7) g/dL Hct (36.0-46.0) % MCV (80-95) fL MCH (27.0-33.0) pg MCHC (32.0-36.0) % RDW (11.7-14.6) % Plt Count (130-400) 10^3/uL MPV (8.0-11.0) fL Immature Gran % Neutrophils % Lymphocytes % Monocytes % Eosinophils % Basophils % Nucleated RBC % % Absolute Neutrophils (1.2-6.7) 10^3/uL Absolute Lymphocytes (1.2-3.4) 10^3/uL Absolute Monocytes (0.1-0.8) 10^3/uL Absolute Eosinophils (0.0-0.7) 10^3/uL Absolute Basophils (0.0-0.2) 10^3/uL RBC Morphology Polychromasia Hypochromasia Poikilocytosis Anisocytosis Microcytosis PT (9.3-11.0) sec INR (0.9-1.1) APTT (21.0-27.5) sec D-Dimer (<500) ng/mlFEU ABG Sample Site ABG pH ABG pCO2 ABG pO2 ABG HCO3 ABG Total CO2 ABG O2 Saturation ABG Base Excess VBG Lactate (0.6-1.4) mmol/L Oxygen Liter Flow FiO2 Sodium (136-145) mmol/L Potassium (3.5-5.1) mmol/L Chloride (98-107) mmol/L Carbon Dioxide (21.0-32.0) mmol/L Anion Gap (3-11) mmol/L BUN (7-18) mg/dL Creatinine (0.55-1.02) mg/dL Estimated GFR/1.73 m2 (mL/min/1.73m2) Glucose (74-106) mg/dL Hemoglobin A1c (<5.7) % Calcium (8.5-10.1) mg/dL Phosphorus (2.6-4.7) mg/dL Magnesium (1.8-2.4) mg/dL Iron (50-170) ug/dL 23 L TIBC (250-450) ug/dL 416 Transferrin % Sat (15-50) % 6 L Ferritin 22 Total Bilirubin (0.2-1.0) mg/dL AST (15-37) U/L ALT (14-59) U/L Alkaline Phosphatase (46-116) U/L Troponin I (<or=60) ng/L C-Reactive Protein (0.0-0.3) mg/dL NT-Pro-B Natriuret Pep (<300) pg/mL Total Protein (6.4-8.2) g/dL Albumin (3.4-5.0) g/dL Vitamin B12 (193-986) pg/mL 514 Folate (8.6-20.0) ng/mL 17.4 Procalcitonin ng/mL Urine Color (Yellow) Urine Clarity (Clear) Urine pH (5-8) Ur Specific [place] (1.005-1.025) Urine Protein (Negative) mg/dL Urine Ketones (Negative) mg/dL Urine Blood (Negative) Urine Nitrite (Negative) Urine Bilirubin (Negative) Urine Urobilinogen (Up TO 0.2) EU/dL Ur Leukocyte Esterase (Negative) Urine RBC (0-2) HPF Urine WBC (0-5) HPF Ur Epithelial Cells (Negative) HPF Urine Crystals (Negative) HPF Urine Bacteria (Negative) HPF Urine Casts (Negative) LPF Urine Mucus (Negative) Urine Other (Negative) Ur Culture Indicated? Urine Glucose (Negative) mg/dL Stl C.difficile Tox PCR (Negative) COVID-19 Source SARS-CoV-2 (PCR) (Negative) Influenza Type A (PCR) (Negative) Influenza Type B (PCR) (Negative) RSV (PCR) (Negative) Add-On Test Request Range/Units 08/19/21 08/19/21 08/19/21 06:15 06:15 06:15 WBC (4.4-10.8) 10^3/uL 16.78 H D RBC (3.93-5.22) 10^6/uL 5.37 H Hgb (11.2-15.7) g/dL 11.7 Hct (36.0-46.0) % 40.0 MCV (80-95) fL 74.5 L MCH (27.0-33.0) pg 21.8 L MCHC (32.0-36.0) % 29.3 L RDW (11.7-14.6) % 17.4 H Plt Count (130-400) 10^3/uL 346 MPV (8.0-11.0) fL 10.8 Immature Gran % 1.3 Neutrophils % 79.9 Lymphocytes % 8.9 Monocytes % 8.3 Eosinophils % 1.5 Basophils % 0.1 Nucleated RBC % % 0 Absolute Neutrophils (1.2-6.7) 10^3/uL 13.41 H Absolute Lymphocytes (1.2-3.4) 10^3/uL 1.49 Absolute Monocytes (0.1-0.8) 10^3/uL 1.39 H Absolute Eosinophils (0.0-0.7) 10^3/uL 0.25 Absolute Basophils (0.0-0.2) 10^3/uL 0.02 RBC Morphology Polychromasia Hypochromasia Poikilocytosis Anisocytosis Microcytosis PT (9.3-11.0) sec INR (0.9-1.1) APTT (21.0-27.5) sec D-Dimer (<500) ng/mlFEU ABG Sample Site ABG pH ABG pCO2 ABG pO2 ABG HCO3 ABG Total CO2 ABG O2 Saturation ABG Base Excess VBG Lactate (0.6-1.4) mmol/L Oxygen Liter Flow FiO2 Sodium (136-145) mmol/L 136 Potassium (3.5-5.1) mmol/L 2.8 L* Chloride (98-107) mmol/L 96 L Carbon Dioxide (21.0-32.0) mmol/L 32.1 H Anion Gap (3-11) mmol/L 7.9 BUN (7-18) mg/dL 35 H Creatinine (0.55-1.02) mg/dL 1.4 H Estimated GFR/1.73 m2 (mL/min/1.73m2) 36.56 Glucose (74-106) mg/dL 191 H Hemoglobin A1c (<5.7) % Calcium (8.5-10.1) mg/dL 7.8 L Phosphorus (2.6-4.7) mg/dL Magnesium (1.8-2.4) mg/dL Iron (50-170) ug/dL TIBC (250-450) ug/dL Transferrin % Sat (15-50) % Ferritin Total Bilirubin (0.2-1.0) mg/dL AST (15-37) U/L ALT (14-59) U/L Alkaline Phosphatase (46-116) U/L Troponin I (<or=60) ng/L C-Reactive Protein (0.0-0.3) mg/dL NT-Pro-B Natriuret Pep (<300) pg/mL 4236 H Total Protein (6.4-8.2) g/dL Albumin (3.4-5.0) g/dL Vitamin B12 (193-986) pg/mL Folate (8.6-20.0) ng/mL Procalcitonin ng/mL Urine Color (Yellow) Urine Clarity (Clear) Urine pH (5-8) Ur Specific [place] (1.005-1.025) Urine Protein (Negative) mg/dL Urine Ketones (Negative) mg/dL Urine Blood (Negative) Urine Nitrite (Negative) Urine Bilirubin (Negative) Urine Urobilinogen (Up TO 0.2) EU/dL Ur Leukocyte Esterase (Negative) Urine RBC (0-2) HPF Urine WBC (0-5) HPF Ur Epithelial Cells (Negative) HPF Urine Crystals (Negative) HPF Urine Bacteria (Negative) HPF Urine Casts (Negative) LPF Urine Mucus (Negative) Urine Other (Negative) Ur Culture Indicated? Urine Glucose (Negative) mg/dL Stl C.difficile Tox PCR (Negative) COVID-19 Source SARS-CoV-2 (PCR) (Negative) Influenza Type A (PCR) (Negative) Influenza Type B (PCR) (Negative) RSV (PCR) (Negative) Add-On Test Request DONE Range/Units 08/19/21 08/19/2108/19/22 06:15 13:00 17:05 WBC (4.4-10.8) 10^3/uL RBC (3.93-5.22) 10^6/uL Hgb (11.2-15.7) g/dL Hct (36.0-46.0) % MCV (80-95) fL MCH (27.0-33.0) pg MCHC (32.0-36.0) % RDW (11.7-14.6) % Plt Count (130-400) 10^3/uL MPV (8.0-11.0) fL Immature Gran % Neutrophils % Lymphocytes % Monocytes % Eosinophils % Basophils % Nucleated RBC % % Absolute Neutrophils (1.2-6.7) 10^3/uL Absolute Lymphocytes (1.2-3.4) 10^3/uL Absolute Monocytes (0.1-0.8) 10^3/uL Absolute Eosinophils (0.0-0.7) 10^3/uL Absolute Basophils (0.0-0.2) 10^3/uL RBC Morphology Polychromasia Hypochromasia Poikilocytosis Anisocytosis Microcytosis PT (9.3-11.0) sec INR (0.9-1.1) APTT (21.0-27.5) sec D-Dimer (<500) ng/mlFEU ABG Sample Site ABG pH ABG pCO2 ABG pO2 ABG HCO3 ABG Total CO2 ABG O2 Saturation ABG Base Excess VBG Lactate (0.6-1.4) mmol/L Oxygen Liter Flow FiO2 Sodium (136-145) mmol/L Potassium (3.5-5.1) mmol/L 4.9 D Chloride (98-107) mmol/L Carbon Dioxide (21.0-32.0) mmol/L Anion Gap (3-11) mmol/L BUN (7-18) mg/dL Creatinine (0.55-1.02) mg/dL Estimated GFR/1.73 m2 (mL/min/1.73m2) Glucose (74-106) mg/dL Hemoglobin A1c (<5.7) % Calcium (8.5-10.1) mg/dL Phosphorus (2.6-4.7) mg/dL Magnesium (1.8-2.4) mg/dL 1.9 Iron (50-170) ug/dL TIBC (250-450) ug/dL Transferrin % Sat (15-50) % Ferritin Total Bilirubin (0.2-1.0) mg/dL AST (15-37) U/L ALT (14-59) U/L Alkaline Phosphatase (46-116) U/L Troponin I (<or=60) ng/L C-Reactive Protein (0.0-0.3) mg/dL NT-Pro-B Natriuret Pep (<300) pg/mL Total Protein (6.4-8.2) g/dL Albumin (3.4-5.0) g/dL Vitamin B12 (193-986) pg/mL Folate (8.6-20.0) ng/mL Procalcitonin ng/mL Urine Color (Yellow) Urine Clarity (Clear) Urine pH (5-8) Ur Specific [place] (1.005-1.025) Urine Protein (Negative) mg/dL Urine Ketones (Negative) mg/dL Urine Blood (Negative) Urine Nitrite (Negative) Urine Bilirubin (Negative) Urine Urobilinogen (Up TO 0.2) EU/dL Ur Leukocyte Esterase (Negative) Urine RBC (0-2) HPF Urine WBC (0-5) HPF Ur Epithelial Cells (Negative) HPF Urine Crystals (Negative) HPF Urine Bacteria (Negative) HPF Urine Casts (Negative) LPF Urine Mucus (Negative) Urine Other (Negative) Ur Culture Indicated? Urine Glucose (Negative) mg/dL Stl C.difficile Tox PCR (Negative) Negative COVID-19 Source SARS-CoV-2 (PCR) (Negative) Influenza Type A (PCR) (Negative) Influenza Type B (PCR) (Negative) RSV (PCR) (Negative) Add-On Test Request Range/Units 08/20/21 06:30 WBC (4.4-10.8) 10^3/uL RBC (3.93-5.22) 10^6/uL Hgb (11.2-15.7) g/dL Hct (36.0-46.0) % MCV (80-95) fL MCH (27.0-33.0) pg MCHC (32.0-36.0) % RDW (11.7-14.6) % Plt Count (130-400) 10^3/uL MPV (8.0-11.0) fL Immature Gran % Neutrophils % Lymphocytes % Monocytes % Eosinophils % Basophils % Nucleated RBC % % Absolute Neutrophils (1.2-6.7) 10^3/uL Absolute Lymphocytes (1.2-3.4) 10^3/uL Absolute Monocytes (0.1-0.8) 10^3/uL Absolute Eosinophils (0.0-0.7) 10^3/uL Absolute Basophils (0.0-0.2) 10^3/uL RBC Morphology Polychromasia Hypochromasia Poikilocytosis Anisocytosis Microcytosis PT (9.3-11.0) sec INR (0.9-1.1) APTT (21.0-27.5) sec D-Dimer (<500) ng/mlFEU ABG Sample Site ABG pH ABG pCO2 ABG pO2 ABG HCO3 ABG Total CO2 ABG O2 Saturation ABG Base Excess VBG Lactate (0.6-1.4) mmol/L Oxygen Liter Flow FiO2 Sodium (136-145) mmol/L 139 Potassium (3.5-5.1) mmol/L 4.3 Chloride (98-107) mmol/L 103 Carbon Dioxide (21.0-32.0) mmol/L 27.3 Anion Gap (3-11) mmol/L 8.7 BUN (7-18) mg/dL 34 H Creatinine (0.55-1.02) mg/dL 1.1 H Estimated GFR/1.73 m2 (mL/min/1.73m2) 48.29 Glucose (74-106) mg/dL 211 H Hemoglobin A1c (<5.7) % Calcium (8.5-10.1) mg/dL 7.8 L Phosphorus (2.6-4.7) mg/dL Magnesium (1.8-2.4) mg/dL Iron (50-170) ug/dL TIBC (250-450) ug/dL Transferrin % Sat (15-50) % Ferritin Total Bilirubin (0.2-1.0) mg/dL AST (15-37) U/L ALT (14-59) U/L Alkaline Phosphatase (46-116) U/L Troponin I (<or=60) ng/L C-Reactive Protein (0.0-0.3) mg/dL NT-Pro-B Natriuret Pep (<300) pg/mL Total Protein (6.4-8.2) g/dL Albumin (3.4-5.0) g/dL Vitamin B12 (193-986) pg/mL Folate (8.6-20.0) ng/mL Procalcitonin ng/mL Urine Color (Yellow) Urine Clarity (Clear) Urine pH (5-8) Ur Specific [place] (1.005-1.025) Urine Protein (Negative) mg/dL Urine Ketones (Negative) mg/dL Urine Blood (Negative) Urine Nitrite (Negative) Urine Bilirubin (Negative) Urine Urobilinogen (Up TO 0.2) EU/dL Ur Leukocyte Esterase (Negative) Urine RBC (0-2) HPF Urine WBC (0-5) HPF Ur Epithelial Cells (Negative) HPF Urine Crystals (Negative) HPF Urine Bacteria (Negative) HPF Urine Casts (Negative) LPF Urine Mucus (Negative) Urine Other (Negative) Ur Culture Indicated? Urine Glucose (Negative) mg/dL Stl C.difficile Tox PCR (Negative) COVID-19 Source SARS-CoV-2 (PCR) (Negative) Influenza Type A (PCR) (Negative) Influenza Type B (PCR) (Negative) RSV (PCR) (Negative) Add-On Test Request
[2021-08-21] MEDS: Heparin 500 UNITS/5 ML SYRINGE IVP (11:01)
--- NOTE | 2021-08-21 12:57 | PDOC.HHF2F ---
Home Health Certification Home Health Certification: 1. Encounter Date and Reason I certify that Iza Yañez was seen by Carter Braden on 08/21/21 and that I had a [id number] encounter with this patient that meets the physician face to face encounter requirements. 2. Clinical Findings Supporting Skilled Need and Homebound Status I certify that home health services are medically necessary, include either intermittent shelter and/or physical/speech therapy, and that this patient is homebound in that absences from the home require considerable and taxing effort and are infrequent or of short duration, or are attributable to the need to receive medical care. [X] (a) Attached documentation from encounter provides clinical findings supporting skilled need and homebound status (including what assistance patient requires to leave the home). The encounter with the patient was in whole, or in part, for the following medical condition, which is the primary reason for home health care: Diabetic Keto Acidosis,Respiratory failure Long-Term: Nursing to evaluate and treat for chronic respiratory failure and to coordinate any medication changes as well as provide medication education to patient and family. Nursing to coordinate any change in treatment requested by PCP or patient's specialty care Physical Therapy: Physical therapy and Occupational Therapy are consulted to evaluate and treat for the patient's generalized weakness and deconditioning secondary to her acute exacerbation of her chronic respiratory failure. Improved patient's gait and balance and ambulation as well as improve her gait independent performance of her ADLs Speech Therapy: Homebound: Patient's acute exacerbation of her chronic respiratory failure his cause significant compromise to the point where seeking medical care outside her home may jeopardize her health. Traveling out of her home is of sufficient difficulty that it jeopardizes her health. 3. Certification and Authentication I certify that I composed the above information based on my clinical judgement relating to this patient's medical condition and, if applicable, clinical findings communicated to me by the NPP or inpatient physician who performed the Home Health Referral. All further orders will be obtained through Dr. Trang Blanton (Community Based Physician - PCP)
--- NOTE | 2021-08-21 15:15 | CMDISCH_ITS ---
- If Service Date Differs Date of service: 08/21/21 Time of Service: 15:15 LACE Index Scoring Tool - Questions: Length of Stay (in days): 4 - 6 Acuity (Admit via E.D.?): Yes Comorbidities: Previous M.I., Diabetes w/o Complication, Chronic Pulmonary Disease, Any Tumor E.D. Visits: 1 - Answers: Total Score: 13 Risk of Readmission: High Risk Care Management Discharge Reason for Hospitalization: Diabetic keto acidosis, respiratory failure Discharge Plan: Iza will discharge home with [facility] RN, PT, OT, and INDIVIDUALIZED EDUCATION PLAN AIDE. She will resume her home oxygen which is delivered through [facility]. Iza will follow up with her PCP and plan of care as prescribed and transport with family. Patient/Family Education Needs: Review discharge instructions, limitations, activity, medications, follow up plan and discuss Ask Me Three.
--- NOTE | 2021-08-21 18:00 | PT.INDS ---
Date of service: 08/22/21 PT Notes Visit Reasons: Diabetic Keto Acidosis,Respiratory failure Physical Therapy Inpatient Discharge Summary Date: 08/21/2021 Dates of service: 08/16/2021 through 08/21/2021 This is a clinical summary of care provided for the duration of dates listed above. No charge was made in the completion of this documentation. Referring Doctor: Stefanie Brown MD PT Orders: PT CONSULT: Limited ability Precautions: Fall. Standard. Activity as tolerated. Patient Profile/Admitting Diagnosis: Marlen is a 76-year-old female who presented to the ED on 08/15/2021 due to acute respiratory distress.? Patient is diagnosed with acute respiratory distress, diabetic ketoacidosis, elevated troponin, mild cognitive impairment, coronary artery disease, and adenocarcinoma, pulmonary hypertension, and chronic respiratory failure with hypoxia. PMHX: All Active Problems? Acute respiratory distress (Acute) DKA (diabetic ketoacidosis) (Acute) Elevated troponin (Acute) Dehydration (Acute) Acute on chronic, with presumed affect on ADL. Considering gentle hydration to help with ADL, but close monitoring required due to high? risk of fluid overload 2' HF.Abnormal PET scan of lung (Acute) (+) lung nodules, serosal implants, possible pancreatic mass 07/19/21.? 2mo review by [facility] oncology to decide on chemo for possible? metastatic condition.Mild cognitive impairment (Acute) Memory changes (Acute) Acute, possibly 2' steroids .. but she and family have noticed changes x months .. ? NeuroPulmonary nodule (Acute) Mobility impaired (Acute) Due to SOB, Ox Dependence, Deconditioning (incl muscle loss) .. ADL are becomin glimited which is terrible for her .. she needs to return? to work, errands, etc ..CAD (coronary artery disease) (Chronic) ASA Class IV per Cardio notes .. mild diffuse stenosis per [employer], 02/2021 (no stenting)..Hx of fluid overload (Acute) Each hospitalization has notable fluid, with use of diuretics. No LE Edema!Hospitalization or health care facility admission within last 6? months (Acute) 02/2021 ([facility]?).. 03/2021 (2D ICU [facility]), then 6D [facility], d/c 04/15, reviewing in [facility], 03/17/21...COPD (chronic obstructive pulmonary disease) (Chronic) Non-ST elevation myocardial infarction (NSTEMI) in recovery phase (Acute) Adenocarcinoma, appendix (Acute ~02/2021) Per [facility] Hem Onc note from 03/13/21Chronic respiratory failure with hypoxia (Acute) Met w/ [facility] Pul, XXX .... Hx [facility] Pulough with hemoptysis (Acute) Wedge compression fracture of first lumbar vertebra, sequela (Acute) Age-related osteoporosis with current pathological fracture, unspecified site, sequela (Acute) Myalgia (Acute) 06/12/20 [facility] RheumEdema leg (Acute) Arteriovenous malformation (Acute 11/16/19) recommend pulmonary angiography and embolization Ray Noriega ungrickum (Acute) 11/08/19 Dr PlataagnePulmonary hypertension, unspecified (Chronic 10/11/19) [facility] 09/06/19) Chronic anticoagulation (Acute) Supplemental oxygen dependent (Acute) Oxygen desaturation (Acute) Serious desaturations occurring with little exertion. Recomm oxygen with exertion as well as overnight, 07/2019.Chronic obstructive? pulmonary disease with (acute) exacerbation (Acute) 07/20/19-[facility] Hem Onc progress note.Dr. Smith (Hospitalized @ [facility], 07/04-07/07/19). [ ] APpt with [facility] Pulm (per Luis's referral). 09/06/19 [facility] Pulm - COPD Gold Stage 1 Category B 09/06/19 [facility] (peripheral artery disease) (Chronic) 10/2019, [facility]. 06/17/19 [facility] Vascular, s/p fem-fem+.Numbness in right leg (Acute) Diverticulitis (Chronic) Diarrhea (Acute) Improved, 05/02/21! 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 s/p surgery; chemotherapy starting 12/10/18. Elevated CEAThrombosis (Acute) s/p fem-fem bypass graft; on eliquisEmphysema lung (Chronic) Elevated white blood cell count (Acute) Hypoglycemia (Acute) Bilateral hearing loss (Chronic) Joint disorder (Chronic) Mixed hyperlipidemia (Chronic) Hypothyroidism (Chronic) Essential hypertension (Chronic) Good BP, 10/2018. Acceptable BP off lisinopril, risk of dizziness and low BP higher than elevated BP, so monitor w/o ACEi at the moment. As? health improves, hope to re-start ACEi for renal-protection as much as BP control. 12/09/18.Type II diabetes mellitus (Chronic) Medical History? Cataract Positive MECCA (antinuclear antibody) 06/12/20 [facility] Rheum Surgical History? History of fasciotomy thrombosis while in OR for appendectomy requiring thrombectomy and fasciotomy to rle. [facility]07[facility]? (~12/02/16) History of right cataract surgery (~2005) Social History/Home Situation: Lives alone in a private home with 2 steps to enter.? Has a very good neighbor and family support.? Has been on chronic oxygen supplementation.? Has front-wheeled walker and SPC but states that she does not use them. Equipment Owned/DME: FWW, SPC Subjective: NT. See most recent MAINTENANCE PIPEFITTER notes. Objective: General Observation: NT. See most recent MAINTENANCE PIPEFITTER notes. Mental Status: NT. See most recent MAINTENANCE PIPEFITTER notes. Pain: NT. See most recent MAINTENANCE PIPEFITTER notes. Vital Signs: NT. See most recent MAINTENANCE PIPEFITTER notes. ROM: Right Upper Extremity: ? Shoulder Flexion WFL. Shoulder abduction WFL. Elbow flexion WFL. Wrist flexion WFL. Functional opening and closing of hand WFL. Left Upper Extremity:? Shoulder Flexion WFL. Shoulder abduction WFL. Elbow flexion WFL. Wrist flexion WFL. Functional opening and closing of hand WFL. Right Lower Extremity: Hip flexion WFL. Hip abduction WFL. Knee flexion WFL. Ankle dorsiflexion WFL. Ankle plantarflexion WFL. Left Lower Extremity: Hip flexion WFL. Hip abduction WFL. Knee flexion WFL. Ankle dorsiflexion WFL. Ankle plantarflexion WFL. Strength: Right Upper Extremity: Shoulder flexors 3+/5. Shoulder abductors 3+/5. Elbow flexors 4-/5. Elbow extensors 4-/5. [employer] strong. Left Upper Extremity: Shoulder flexors 3+/5. Shoulder abductors 3+/5. Elbow flexors 4-/5. Elbow extensors 4-/5. [employer] strong. Right Lower Extremity: Hip flexors 3+/5. Hip abductors 3+/5. Knee flexors 4-/5. Knee extensors 4-/5. Ankle dorsiflexors 3/5. Ankle plantarflexors 3/5. Left Lower Extremity: Hip flexors 3+/5. Hip abductors 3+/5. Knee flexors 4-/5. Knee extensors 4-/5. Ankle dorsiflexors 3/5. Ankle plantarflexors 3/5. Bed Mobility/Transfers: Supine to sit supervision Sit to stand standby assist Stand to sit standby assist Bed to bedside standby assist Bedside commode to bed standby assist Gait: Instructed patient with level surface ambulation of 20 feet x 2 requiring standby assist. Britt improved. Step height decreased. Step length decreased.? Saturation level of 82 to 88% during ambulation activity. Balance: Static Sitting: Good Dynamic Sitting: Good Static Standing: Fair Dynamic Standing: Fair Assessment: Ventilatory threshold increasing with patient requiring 8 L of oxygen supplementation via NC with saturation level of 82 to 88% during ambulation activity. ? Patient requires the use of a front wheeled walker to conserve energy, reduce fall risk, and maximize functional independence.? Patient presents with clinical signs and symptoms consistent with current/admitting diagnoses that have resulted to mobility limitations, gait instability, generalized weakness, and overall ADL decline as demonstrated by the following impairment level findings: 1.? Decreased strength to B UE/LE major muscle groups 2.? Impaired sitting/standing balance 3.? Impaired activity tolerance 4.? Significant dyspnea 5.? Swelling Impairments are contributing to the following functional limitations: 1.? Decline in bed mobility skills 2.? Decline in transfer skills 3.? Difficulty with ambulation without assistive device and physical assistance 4.? Increased completion time for mobility ADL performance 5.? Increased risk for falls 6.? Difficulty with managing steps alone safely Goals: Goals X1 week 1. Supine-Sit independent NOT MET 2. Sit-Supine independent NOT MET 3. Sit-Stand independent NOT MET 4. Stand-Sit independent with FWW NOT MET 5. Bed-Chair independent with FWW NOT MET 6. Chair-Bed independent with FWW NOT MET 7. Independent gait on level surface with use of FWW for at least 75 feet without report of pain nor dyspnea NOT MET 8. Independent stair negotiation while holding onto B rails for at least 5 steps without report of pain nor dyspnea NOT MET 9. Independent with home exercise program NOT MET 10. Good static and dynamic standing balance/tolerance NOT MET DISCHARGE RECOMMENDATIONS: SNF vs. PT depending on functional progress.? Will update porter sample case as needed for safe discharge destination. TREATMENT CODE/TIME: RI Thank you for the opportunity to participate in the care of this patient. Dulce Solorio PT, DPT, CLT [facility] [place], [place]
== END 2021-08-21 12:27 | disposition home health service (06) | DRG 193 ==
LOC: ER 19:46 → ICU 20:37 → MS 08-20 20:47
PROVIDERS: Internal Medicine; Admitting Provider Family Medicine; Emergency Provider Physician Assistant; PCP Student in an Organized Health Care Education/Training Program; Visit Provider Family Medicine
DX: J18.9 Pneumonia, unspecified organism (principal); J96.21 Acute and chronic respiratory failure with hypoxia; E11.10 Type 2 diabetes mellitus with ketoacidosis without coma; J44.0 Chronic obstructive pulmonary disease with (acute) lower respiratory infection; I24.8 Other forms of acute ischemic heart disease; E87.2 Acidosis; N17.9 Acute kidney failure, unspecified; J44.1 Chronic obstructive pulmonary disease with (acute) exacerbation; I11.0 Hypertensive heart disease with heart failure; I50.813 Acute on chronic right heart failure; E11.9 Type 2 diabetes mellitus without complications; I73.9 Peripheral vascular disease, unspecified; I27.20 Pulmonary hypertension, unspecified; Z79.84 Long term (current) use of oral hypoglycemic drugs; I25.10 Atherosclerotic heart disease of native coronary artery without angina pectoris; G31.84 Mild cognitive impairment of uncertain or unknown etiology; E78.2 Mixed hyperlipidemia; I25.2 Old myocardial infarction; Z79.01 Long term (current) use of anticoagulants; R91.1 Solitary pulmonary nodule; Z85.89 Personal history of malignant neoplasm of other organs and systems; Z99.81 Dependence on supplemental oxygen; Z66 Do not resuscitate; I34.0 Nonrheumatic mitral (valve) insufficiency; D50.9 Iron deficiency anemia, unspecified; E11.649 Type 2 diabetes mellitus with hypoglycemia without coma
CPT/HCPCS: 36410; 36415; 36416; 36592; 51702; 71275; 80048; 80053; 82805; 82962; 84145; 87040; 87081; 87493; 87637; 92610; 93005; 93306; 94640; 96361; 96365; 96366; 96375; 97110; 97162; 97530; 99291; 81003; 81015; 82607; 82728; 82746; 83036; 83540; 83550; 83605; 83630; 83735; 83880; 84100; 84132; 84484; 85025; 85379; 85610; 85730; 86140; 93010; 94660; 99223; 99232; 99233; 99239; J1756; J1940; J2060; J2930; J3480; J3490; J7512; J7620